=== PATIENT | male | born 1960 | race Caucasian/White ===

== ENCOUNTER 2017-02-04 22:46 | Emergency (ER) | payer OTHER, MEDICAID ==
[2017-02-04 22:57] VITALS: BP 103/63; BMI 19.3
--- NOTE | 2017-02-04 23:07 | DR.GENAD ---
HPI - PCP Primary Care Physician: WILLIAN - HPI Comment HPI Comment: PATIENT IS A TOTAL CARE PATIENT. FREIGHT TRAFFIC CONSULTANT IN ED WITH PATIENT. CAME TO ED WIA EMS. PATIENT IS ALERT BUT IS NON VERBAL DOES NOT COMPREHEND WHEN YOU TALK TO HIM. - Complaint/Symptoms Chief Complaint Doctors Comments: SOB. FREIGHT TRAFFIC CONSULTANT SAID HE IS HAD FEVER AND SOB TODAY. GOT WORSE. Chief Complaint:: EMS RESPONDED TO CALL IN [facility] REFERENCE TO DIFFICULTY BREATHING . UPON ARRIVAL PATIENT WAS BREATHING WITHOUT DISTRESS, CAREGIVER STATES, "HE IS JUST BREATHING FUNNY." - Nurses notes reviewed Nurses Notes Review: Yes - Source History Provided: Family Member, EMS - Mode of Arrival Mode of Arrival: EMS - Timing Onset of Chief Complaint: 02/04/17 Came on: Gradually - Duration Duration: Constant Duration: Days - Severity Severity: Moderate PMH - PMH Past Medical History: Yes Past Medical History: Anxiety, Seizures Past Surgical History: Yes Surgical History: No History, Ortho Surgery - Family History History of Family Medical Conditions: No - Social History Does patient currently use any type of tobacco product: No Have you used tobacco products in the last 12 months: No Type of Tobacco Use: None Does any household member use tobacco: No Alcohol Use: None Do you use any recreational Drugs:: No Lives With: Family Lives Where: Home - infectious screening Have you traveled outside the country in the last 6 months?: No Isolation: Standard ROS - Review of Systems Constitutional: Fever, Weakness, Fatigue. negative: Chills, Loss of Appetite Eyes: negative: Eye Pain, Discharge ENTM: negative: Ear Pain, Nose Discharge, Nose Congestion, Throat Pain (THROAT NOT VISUALIZE.) Respiratoy: Non-Productive Cough, Short of Breath, Wheezing. negative: Hemoptysis Cardiovascular: Palpitations. negative: Syncope Gastrointestinal/Abdominal: negative: Abdominal Pain, Nausea, Vomiting Genitourinary: negative: Hematuria Neurological: Weakness, Other (CEREBRAL PALSY.) Musculoskeletal: Joint Swelling, Muscle Pain Integumentary: Change in Color Hematologic/Lymphatic: No Symptoms Reported Endocrine: negative: Flushing (HISTORY PER FREIGHT TRAFFIC CONSULTANT.) All Other Systems: Reviewed and Negative PE - Vital Signs Vitals: Temperature 100.5 F Pulse Rate 111 Respiratory Rate 28 Blood Pressure [Right Arm] 123/80 Blood Pressure [Left Arm] 95/66 Blood Pressure 103/63 O2 Sat by Pulse Oximetry 92 - General Limitations: No Limitations General Appearance: Alert - Head Head Exam: Normal Inspection - Eyes Eye exam: Normal Appearance - ENT ENT Exam: Normal External Ear Exam External Ear Exam: Normal External Inspection TM/Canal Exam: Bilateral Normal Nose Exam: Normal Nose Exam Mouth Exam: Normal Inspection Throat Exam: Normal Inspection - Neck Neck Exam: Normal Inspection - Chest Chest Inspection: Symmetric Chest Wall Rise - Respiratory Respiratory Exam: Normal Lung Sounds Bilat Respiratory Exam: Bilateral Rhonchi, Upper Rhonchi, Lower Rhonchi - Cardiovascular Cardiovascular Exam: Regular Rate, Normal Rhythm, Normal Heart Sounds - Abdominal Exam Abdominal Exam: Normal Bowel Sounds, Soft. negative: Tenderness - Extremities Extremities Exam: Normal Inspection - Back Back Exam: Normal Inspection - Neurologic Neurological Exam: Alert (PATIENT CANNOT FOLLOW DIRECTION, HE CANNOT TALK.), Other (CEREBRAL PALSY EXTREMITIES CONTRATED. ) - Skin Skin Exam: Erythema MDM - Additional Information Additional Information Obtained From: Oil Deliverer - Differential Diagnosis Differential Diagnosis: PNEUMONIA, CHF, BRONCHITIS, RESPIRATORY FAILURE, UTI Course - Treatment Treatment: SEE ORDERS - Education/Counseling Education/Counseling: Family, Education Educated On: Treatment, Diagnosis, Needs for Follow Up ROR - Labs Reviewed Laboratory Results Reviewed?: Yes Result Diagrams: 02/04/17 23:15 02/04/17 23:15 Laboratory: WBC 11.9 X10^3/uL (3.6-10.0) H 02/04/17 23:15 RBC 4.01 X10^6/uL (4.7-6.0) L 02/04/17 23:15 Hgb 11.8 g/dL (13.5-18.0) L 02/04/17 23:15 Hct 35.7 % (42.0-54.0) L 02/04/17 23:15 MCV 89.1 fL (80.0-100.0) 02/04/17 23:15 MCH 29.5 pg (27.0-34.0) 02/04/17 23:15 MCHC 33.1 g/dL (33.0-35.0) 02/04/17 23:15 RDW 13.5 % (11.6-16.5) 02/04/17 23:15 Plt Count 250 X10^3/uL (150.0-450.0) 02/04/17 23:15 MPV 7.9 fL (7.4-11.0) 02/04/17 23:15 Neut % 81.0 % (42.0-75.0) H 02/04/17 23:15 Lymph % 8.3 % (21.0-51.0) L 02/04/17 23:15 [place] % 10.1 % (0.0-13.0) 02/04/17 23:15 Eos % 0.2 % (0.9-2.9) L 02/04/17 23:15 Baso % 0.4 % (0.2-1.0) 02/04/17 23:15 Neut # 9.7 x10^3/uL (2.2-4.8) H 02/04/17 23:15 Lymph # 1.0 X10^3/uL (1.3-2.9) L 02/04/17 23:15 [place] # 1.2 x10^3/uL (0.3-0.8) H 02/04/17 23:15 Eos # 0.0 x10^3/uL (0.0-0.2) 02/04/17 23:15 Baso # 0.1 X10^3/uL (0.0-0.1) 02/04/17 23:15 Absolute Nucleated RBC 0.0 /100WBC 02/04/17 23:15 Sodium 144 mmol/L (136-145) 02/04/17 23:15 Corrected Sodium 145 mmol/L (136-145) 02/04/17 23:15 Potassium 3.2 mmol/L (3.5-5.1) L 02/04/17 23:15 Chloride 106 mmol/L (98-107) 02/04/17 23:15 Carbon Dioxide 30.5 mmol/L (21-32) 02/04/17 23:15 BUN 10 mg/dL (7-18) 02/04/17 23:15 Creatinine 0.77 mg/dL (0.70-1.30) 02/04/17 23:15 Est GFR (MDRD) Af Amer > 60 (>60) 02/04/17 23:15 Est GFR (MDRD) Non-Af > 60 (>60) 02/04/17 23:15 Glucose 133 mg/dL (65-99) H 02/04/17 23:15 Calcium 8.2 mg/dL (8.5-10.1) L 02/04/17 23:15 Corrected Calcium 9.6 mg/dL (8.5-10.1) 02/04/17 23:15 Total Bilirubin 0.40 mg/dL (0.2-1.0) 02/04/17 23:15 AST 37 Units/L (15-37) 02/04/17 23:15 ALT 47 Units/L (12-78) 02/04/17 23:15 Alkaline Phosphatase 157 Units/L (46-116) H 02/04/17 23:15 B-Natriuretic Peptide 107 pg/mL (0-79) H 02/05/17 00:12 Total Protein 7.3 g/dL (6.4-8.2) 02/04/17 23:15 Albumin 2.2 g/dL (3.4-5.0) L 02/04/17 23:15 Globulin 5.1 g/dL (2.5-4.5) H 02/04/17 23:15 Albumin/Globulin Ratio 0.4 Ratio (1.1-2.1) L 02/04/17 23:15 Specimen Type Clean catch urine 02/04/17 23:11 Urine Color Yellow (YELLOW) 02/04/17 23:11 Urine Appearance Slightly hazy (CLEAR) 02/04/17 23:11 Urine pH 6.0 (5.0 - 8.0) 02/04/17 23:11 Ur Specific [place] 1.020 (1.000-1.030) 02/04/17 23:11 Urine Protein 2+ (NEGATIVE) 02/04/17 23:11 Urine Glucose (UA) Negative (NEGATIVE) 02/04/17 23:11 Urine Ketones Negative (NEGATIVE) 02/04/17 23:11 Urine Occult Blood 3+ (NEGATIVE) 02/04/17 23:11 Urine Nitrite Negative (NEGATIVE) 02/04/17 23:11 Urine Bilirubin Negative (NEGATIVE) 02/04/17 23:11 Urine Urobilinogen Normal (NORMAL) 02/04/17 23:11 Ur Leukocyte Esterase 1+ (NEGATIVE) 02/04/17 23:11 Urine RBC 2-6 /HPF (NEGATIVE) 02/04/17 23:11 Urine WBC 0-3 /HPF (NEGATIVE) 02/04/17 23:11 Ur Squamous Epith Cells Few /HPF (NEGATIVE) 02/04/17 23:11 Urine Bacteria Negative /HPF (NEGATIVE) 02/04/17 23:11 Ur Culture Indicated? No/not indicated 02/04/17 23:11 - XRAY XRAY Interpreted by: Radiologist XRAY Findings: REPORT NOTED AND DISCUSS WITH PATIENTS FREIGHT TRAFFIC CONSULTANT. - EKG Rhythm: NSR (EKG NOTED) - Diagnosis Discharge Problem: Respiratory distress, Bronchitis - Discharge Plan Condition: Stable Prescriptions: Amoxicillin & Pot Clavulanate [AUGMENTIN TAB 875 mg/125 mg *] 1 tab PO BID #20 tab - Follow ups/Referrals Follow ups/Referrals: Severo Leal [Primary Care Provider] - 3 days - Instructions Instructions: Acute Bronchitis, [id number], Shortness of Breath, [id number] Additional Instructions: RETURN TO ED IF WORSE.
[2017-02-04 23:27] LABS: BASOPHILS # (AUTO) 0.1 X10^3/uL (0.0-0.1); BASOPHILS % (AUTO) 0.4 % (0.2-1.0); EOSINOPHILS % (AUTO) 0.2 % (0.9-2.9); HEMATOCRIT 35.7 % (42.0-54.0); HEMOGLOBIN 11.8 g/dL (13.5-18.0); LYMPHOCYTES % (AUTO) 8.3 % (21.0-51.0); MEAN CORPUSCULAR HEMOGLOBIN 29.5 pg (27.0-34.0); MEAN CORPUSCULAR HGB CONC 33.1 g/dL (33.0-35.0); MEAN CORPUSCULAR VOLUME 89.1 fL (80.0-100.0); MEAN PLATELET VOLUME 7.9 fL (7.4-11.0); MONOCYTES # (AUTO) 1.2 x10^3/uL (0.3-0.8); MONOCYTES % (AUTO) 10.1 % (0.0-13.0); NEUTROPHILS # (AUTO) 9.7 x10^3/uL (2.2-4.8); PLATELET COUNT 250 X10^3/uL (150.0-450.0); RED BLOOD COUNT 4.01 X10^6/uL (4.7-6.0); RED CELL DISTRIBUTION WIDTH 13.5 % (11.6-16.5); WHITE BLOOD COUNT 11.9 X10^3/uL (3.6-10.0)
--- NOTE | 2017-02-04 23:28 | RAD ---
EXAM: Chest X-ray INDICATION: Shortness of breath COMPARISION: Prior exam from January 05, 2015 TECHNIQUE: Single view FINDINGS: The lungs are clear and the lung volumes are within normal limits. No pleural effusion or pneumothor ax. The cardiac silhouette is moderately enlarged and there central vascular congestion. The region al skeleton is intact. IMPRESSION: There is moderate cardiomegaly and central vascular congestion. Findings are consistent with changes associated congestive heart failure. Reported By:
[2017-02-04 23:30] LABS: BILIRUBIN,URINE NEGATIVE (NEGATIVE); BLOOD/HEMOGLOBIN,URINE 3+ (NEGATIVE); GLUCOSE, URINE NEGATIVE (NEGATIVE); KETONES,URINE NEGATIVE (NEGATIVE); LEUKOCYTE ESTERASE ,URINE 1+ (NEGATIVE); NITRITES,URINE NEGATIVE (NEGATIVE); PROTEIN,URINE 2+ (NEGATIVE); UROBILINOGEN,URINE NORMAL (NORMAL)
[2017-02-04 23:38] LABS: ALANINE AMINOTRANSFERASE 47 Units/L (12-78); ALBUMIN 2.2 g/dL (3.4-5.0); ALKALINE PHOSPHATASE 157 Units/L (46-116); ASPARTATE AMINO TRANSFERASE 37 Units/L (15-37); BLOOD UREA NITROGEN 10 mg/dL (7-18); CALCIUM 8.2 mg/dL (8.5-10.1); CARBON DIOXIDE 30.5 mmol/L (21-32); CHLORIDE 106 mmol/L (98-107); COR CA(FOR HYPOALB) 9.6 mg/dL (8.5-10.1); COR NA(FOR HYPERGLY) 145 mmol/L (136-145); CREATININE 0.77 mg/dL (0.70-1.30); GLUCOSE 133 mg/dL (65-99); SODIUM 144 mmol/L (136-145); TOTAL PROTEIN 7.3 g/dL (6.4-8.2); eGFR BLACK RACES > 60 (>60); eGFR NON BLACK RACES > 60 (>60)
[2017-02-04 23:46] LABS: APPEARANCE,URINE SLIGHTLY HAZY (CLEAR); BACTERIA,URINE NEGATIVE /HPF (NEGATIVE); COLOR,URINE YELLOW (YELLOW); SQUAMOUS EPITHELIAL CELL,UR FEW /HPF (NEGATIVE)
[2017-02-05] MEDS ORDERED: ROCEPHIN VIAL 1 GM ONE (01:49)
[2017-02-05] MEDS ORDERED: ROCEPHIN VIAL 1 GM IM ONE (01:49)
== END 2017-02-05 03:09 | disposition home or self-care (01) ==
LOC: ER 22:50
DX: J40 Bronchitis, not specified as acute or chronic (principal); R06.00 Dyspnea, unspecified; I51.7 Cardiomegaly
CPT/HCPCS: 36415; 51701; 71010; 80053; 81001; 83880; 85025; 87040; 87077; 87186; 99283; J0696

== ENCOUNTER 2017-02-06 10:17 | Inpatient (IN) | payer OTHER, MEDICAID ==
[2017-02-06 12:18] LABS: BASOPHILS % (AUTO) 0.2 % (0.2-1.0); EOSINOPHILS # (AUTO) 0.1 x10^3/uL (0.0-0.2); EOSINOPHILS % (AUTO) 1.2 % (0.9-2.9); HEMATOCRIT 38.5 % (42.0-54.0); HEMOGLOBIN 12.8 g/dL (13.5-18.0); LYMPHOCYTES # (AUTO) 1.2 X10^3/uL (1.3-2.9); LYMPHOCYTES % (AUTO) 9.8 % (21.0-51.0); MEAN CORPUSCULAR HEMOGLOBIN 29.5 pg (27.0-34.0); MEAN CORPUSCULAR HGB CONC 33.3 g/dL (33.0-35.0); MEAN CORPUSCULAR VOLUME 88.6 fL (80.0-100.0); MONOCYTES # (AUTO) 1.3 x10^3/uL (0.3-0.8); MONOCYTES % (AUTO) 10.7 % (0.0-13.0); NEUTROPHILS # (AUTO) 9.4 x10^3/uL (2.2-4.8); NEUTROPHILS % (AUTO) 78.1 % (42.0-75.0); PLATELET COUNT 325 X10^3/uL (150.0-450.0); RED BLOOD COUNT 4.35 X10^6/uL (4.7-6.0); RED CELL DISTRIBUTION WIDTH 13.6 % (11.6-16.5); WHITE BLOOD COUNT 12.1 X10^3/uL (3.6-10.0)
--- NOTE | 2017-02-06 13:11 | RAD ---
HISTORY: Bacteremia Study: Chest one view Comparison: February 04, 2017 Findings: The heart remains enlarged. No congestive heart failure is noted. No acute alveolar infiltrates are identified. The right lung and left upper lung yeboah are clear. Hazy opacity in the left lung base could represent atelectasis, effusion, or infiltrate. Follow up of this area is recommended. Follow up with upright PA and lateral chest in the department would be of greater diagnostic value than por table radiography. IMPRESSION: Cardiomegaly without congestive heart failure Haziness in the left lower billie thorax which could represent fluid the, developing infiltrate or dev eloping atelectasis. See recommendation as above Reported By:
[2017-02-06 13:33] LABS: ALANINE AMINOTRANSFERASE 55 Units/L (12-78); ALBUMIN 2.3 g/dL (3.4-5.0); ALKALINE PHOSPHATASE 168 Units/L (46-116); ASPARTATE AMINO TRANSFERASE 52 Units/L (15-37); BLOOD UREA NITROGEN 7 mg/dL (7-18); CALCIUM 8.6 mg/dL (8.5-10.1); CARBON DIOXIDE 31.3 mmol/L (21-32); CHLORIDE 103 mmol/L (98-107); CREATININE 0.77 mg/dL (0.70-1.30); GLUCOSE 94 mg/dL (65-99); SODIUM 142 mmol/L (136-145); TOTAL PROTEIN 7.9 g/dL (6.4-8.2); eGFR BLACK RACES > 60 (>60); eGFR NON BLACK RACES > 60 (>60)
[2017-02-06] MEDS ORDERED: NS 250 ML IV 250 ML IV ONE ×2 (13:44→20:22)
[2017-02-06] MEDS: VANCOMYCIN HCL 1 GM VIAL IV SCH ×2 (14:23→20:53)
[2017-02-06] MEDS: NS 1000 ML 1,000 ML IV SCH (14:23)
[2017-02-06] MEDS ORDERED: VISTARIL PO ONE (14:45)
[2017-02-06] MEDS ORDERED: KLONOPIN TAB 0.5 MG PO PRN (14:46)
[2017-02-06 17:30] VITALS: BMI 19.1
[2017-02-06] MEDS: TYLENOL 325 MG TAB PO PRN ×2 (17:42→21:48)
[2017-02-06] MEDS: ELAVIL PO SCH (20:51)
[2017-02-06] MEDS: ZyrTEC TAB 10 MG PO SCH (20:51)
[2017-02-06] MEDS: SENOKOT PO SCH (20:52)
[2017-02-06] MEDS: COGENTIN TAB 1 MG PO SCH (20:52)
[2017-02-06] MEDS: KEPPRA TAB 500 MG PO SCH (20:52)
[2017-02-06] MEDS: PERIACTIN TAB 4 MG PO SCH (21:02)
[2017-02-07] MEDS: NS 1000 ML 1,000 ML IV SCH ×2 (01:56→12:06)
[2017-02-07] MEDS: PERIACTIN TAB 4 MG PO SCH ×3 (05:25→21:01)
[2017-02-07 06:33] LABS: BASOPHILS # (AUTO) 0.1 X10^3/uL (0.0-0.1); BASOPHILS % (AUTO) 0.6 % (0.2-1.0); EOSINOPHILS # (AUTO) 0.2 x10^3/uL (0.0-0.2); EOSINOPHILS % (AUTO) 2.4 % (0.9-2.9); HEMATOCRIT 36.8 % (42.0-54.0); HEMOGLOBIN 12.3 g/dL (13.5-18.0); LYMPHOCYTES # (AUTO) 1.1 X10^3/uL (1.3-2.9); LYMPHOCYTES % (AUTO) 12.3 % (21.0-51.0); MEAN CORPUSCULAR HEMOGLOBIN 29.4 pg (27.0-34.0); MEAN CORPUSCULAR HGB CONC 33.5 g/dL (33.0-35.0); MEAN CORPUSCULAR VOLUME 87.7 fL (80.0-100.0); MEAN PLATELET VOLUME 7.9 fL (7.4-11.0); MONOCYTES % (AUTO) 10.8 % (0.0-13.0); NEUTROPHILS # (AUTO) 6.6 x10^3/uL (2.2-4.8); NEUTROPHILS % (AUTO) 73.9 % (42.0-75.0); PLATELET COUNT 266 X10^3/uL (150.0-450.0); RED BLOOD COUNT 4.19 X10^6/uL (4.7-6.0); RED CELL DISTRIBUTION WIDTH 13.7 % (11.6-16.5); WHITE BLOOD COUNT 8.9 X10^3/uL (3.6-10.0)
[2017-02-07 06:45] LABS: ALANINE AMINOTRANSFERASE 58 Units/L (12-78); ALBUMIN 2.1 g/dL (3.4-5.0); ALKALINE PHOSPHATASE 151 Units/L (46-116); ASPARTATE AMINO TRANSFERASE 68 Units/L (15-37); BLOOD UREA NITROGEN 4 mg/dL (7-18); CALCIUM 8.5 mg/dL (8.5-10.1); CARBON DIOXIDE 33.7 mmol/L (21-32); CHLORIDE 108 mmol/L (98-107); CREATININE 0.63 mg/dL (0.70-1.30); GLUCOSE 102 mg/dL (65-99); SODIUM 145 mmol/L (136-145); TOTAL PROTEIN 7.1 g/dL (6.4-8.2); eGFR BLACK RACES > 60 (>60); eGFR NON BLACK RACES > 60 (>60)
[2017-02-07] MEDS ORDERED: K-LYTE EFFERVESCENT PO PRN (07:55)
[2017-02-07] MEDS ORDERED: K-RIDER 10 MEQ/NS 100 ML 10 MEQ/100 ML BAG IV PRN (07:55)
[2017-02-07] MEDS ORDERED: POTASSIUM CHLORIDE LIQ 20 MEQ UDC PO PRN (07:55)
[2017-02-07] MEDS ORDERED: K-DUR TAB 20 MEQ PO PRN (07:55)
[2017-02-07] MEDS ORDERED: NS 250 ML IV 250 ML IV ONE (08:26)
[2017-02-07] MEDS: VANCOMYCIN HCL 1 GM VIAL IV SCH (09:07)
[2017-02-07] MEDS: VITAMIN B-6 PO SCH (09:08)
[2017-02-07] MEDS: KEPPRA TAB 500 MG PO SCH ×2 (09:08→20:53)
[2017-02-07] MEDS: SENOKOT PO SCH ×2 (09:09→20:53)
[2017-02-07] MEDS ORDERED: BUTT CREAM (COMPOUND) TOP PRN (11:32)
[2017-02-07] MEDS: TYLENOL 325 MG TAB PO PRN ×2 (12:03→15:52)
[2017-02-07] MEDS ORDERED: PATIENT'S HOME MEDICATION (Misc Home Med 1 TAB) PO SCH (12:15)
[2017-02-07] MEDS ORDERED: PYRIDOXINE HCL 50 MG PO SCH (12:15)
[2017-02-07] MEDS ORDERED: [UNRECOGNIZED DRUG - OTHER] PO SCH (12:15)
[2017-02-07] MEDS ORDERED: KEPPRA TAB 500 MG PO SCH (13:00)
[2017-02-07] MEDS: COGENTIN TAB 1 MG PO SCH (20:53)
[2017-02-07] MEDS: ZyrTEC TAB 10 MG PO SCH (20:53)
[2017-02-07] MEDS: KLONOPIN TAB 1 MG PO SCH (20:53)
[2017-02-07] MEDS: ELAVIL PO SCH (20:54)
[2017-02-07] MEDS ORDERED: SENOKOT PO SCH (21:00)
[2017-02-07] MEDS ORDERED: COGENTIN TAB 1 MG PO SCH (21:00)
[2017-02-07] MEDS ORDERED: ELAVIL PO SCH (21:00)
[2017-02-07] MEDS ORDERED: [UNRECOGNIZED DRUG - REMARK] PO SCH (21:00)
[2017-02-07] MEDS ORDERED: PATIENT'S HOME MEDICATION (Amitriptyline Hcl [Amitriptyline Hcl] 1 TAB) PO SCH (21:00)
[2017-02-07] MEDS ORDERED: ZyrTEC TAB 10 MG PO SCH (21:00)
[2017-02-07 21:44] LABS: CREATININE 0.63 mg/dL (0.70-1.30); VANCOMYCIN,TROUGH 8.4 ug/mL (15-20)
[2017-02-07] MEDS: VANCOMYCIN 1 GM PREMIX (ADDVANTAGE) 250 ML IV SCH (21:51)
[2017-02-08] MEDS: PERIACTIN TAB 4 MG PO SCH ×4 (05:38→21:24)
[2017-02-08 06:50] LABS: BASOPHILS # (AUTO) 0.1 X10^3/uL (0.0-0.1); BASOPHILS % (AUTO) 0.6 % (0.2-1.0); EOSINOPHILS # (AUTO) 0.3 x10^3/uL (0.0-0.2); EOSINOPHILS % (AUTO) 3.2 % (0.9-2.9); HEMATOCRIT 34.3 % (42.0-54.0); HEMOGLOBIN 11.4 g/dL (13.5-18.0); LYMPHOCYTES # (AUTO) 1.9 X10^3/uL (1.3-2.9); LYMPHOCYTES % (AUTO) 21.5 % (21.0-51.0); MEAN CORPUSCULAR HEMOGLOBIN 29.1 pg (27.0-34.0); MEAN CORPUSCULAR HGB CONC 33.2 g/dL (33.0-35.0); MEAN CORPUSCULAR VOLUME 87.7 fL (80.0-100.0); MEAN PLATELET VOLUME 7.8 fL (7.4-11.0); MONOCYTES # (AUTO) 0.9 x10^3/uL (0.3-0.8); MONOCYTES % (AUTO) 9.8 % (0.0-13.0); NEUTROPHILS # (AUTO) 5.7 x10^3/uL (2.2-4.8); NEUTROPHILS % (AUTO) 64.9 % (42.0-75.0); PLATELET COUNT 270 X10^3/uL (150.0-450.0); RED BLOOD COUNT 3.91 X10^6/uL (4.7-6.0); RED CELL DISTRIBUTION WIDTH 13.7 % (11.6-16.5); WHITE BLOOD COUNT 8.8 X10^3/uL (3.6-10.0)
[2017-02-08 07:04] LABS: ALANINE AMINOTRANSFERASE 52 Units/L (12-78); ALBUMIN 1.9 g/dL (3.4-5.0); ALKALINE PHOSPHATASE 131 Units/L (46-116); ASPARTATE AMINO TRANSFERASE 51 Units/L (15-37); BLOOD UREA NITROGEN 5 mg/dL (7-18); CALCIUM 8.3 mg/dL (8.5-10.1); CARBON DIOXIDE 27.2 mmol/L (21-32); CHLORIDE 108 mmol/L (98-107); CREATININE 0.55 mg/dL (0.70-1.30); GLUCOSE 86 mg/dL (65-99); SODIUM 141 mmol/L (136-145); TOTAL PROTEIN 6.4 g/dL (6.4-8.2); eGFR BLACK RACES > 60 (>60); eGFR NON BLACK RACES > 60 (>60)
[2017-02-08] MEDS: NS 1000 ML 1,000 ML IV SCH (08:38)
[2017-02-08] MEDS: VANCOMYCIN 1 GM PREMIX (ADDVANTAGE) 250 ML IV SCH ×2 (08:38→21:23)
[2017-02-08] MEDS: VITAMIN B-6 PO SCH (08:39)
[2017-02-08] MEDS: FIBERCON PO SCH (08:39)
[2017-02-08] MEDS: SENOKOT PO SCH ×2 (08:39→21:24)
[2017-02-08] MEDS: KEPPRA TAB 500 MG PO SCH ×2 (08:39→21:24)
[2017-02-08] MEDS ORDERED: VITAMIN B-6 PO SCH (09:00)
[2017-02-08] MEDS: TYLENOL 325 MG TAB PO PRN (14:03)
[2017-02-08] MEDS ORDERED: MILK OF MAGNESIA PO PRN (19:47)
[2017-02-08] MEDS: ZyrTEC TAB 10 MG PO SCH (21:24)
[2017-02-08] MEDS: COGENTIN TAB 1 MG PO SCH (21:24)
[2017-02-08] MEDS: ELAVIL PO SCH (21:24)
[2017-02-08] MEDS: KLONOPIN TAB 1 MG PO SCH (21:24)
[2017-02-09 05:27] LABS: BASOPHILS # (AUTO) 0.1 X10^3/uL (0.0-0.1); BASOPHILS % (AUTO) 0.6 % (0.2-1.0); EOSINOPHILS # (AUTO) 0.3 x10^3/uL (0.0-0.2); EOSINOPHILS % (AUTO) 3.6 % (0.9-2.9); HEMATOCRIT 33.6 % (42.0-54.0); HEMOGLOBIN 11.3 g/dL (13.5-18.0); LYMPHOCYTES # (AUTO) 2.3 X10^3/uL (1.3-2.9); LYMPHOCYTES % (AUTO) 24.6 % (21.0-51.0); MEAN CORPUSCULAR HEMOGLOBIN 29.2 pg (27.0-34.0); MEAN CORPUSCULAR HGB CONC 33.5 g/dL (33.0-35.0); MEAN CORPUSCULAR VOLUME 87.3 fL (80.0-100.0); MEAN PLATELET VOLUME 8.2 fL (7.4-11.0); MONOCYTES # (AUTO) 1.1 x10^3/uL (0.3-0.8); NEUTROPHILS # (AUTO) 5.4 x10^3/uL (2.2-4.8); NEUTROPHILS % (AUTO) 59.2 % (42.0-75.0); PLATELET COUNT 242 X10^3/uL (150.0-450.0); RED BLOOD COUNT 3.85 X10^6/uL (4.7-6.0); RED CELL DISTRIBUTION WIDTH 13.6 % (11.6-16.5); WHITE BLOOD COUNT 9.2 X10^3/uL (3.6-10.0)
[2017-02-09 05:28] LABS: ALANINE AMINOTRANSFERASE 53 Units/L (12-78); ALBUMIN 1.7 g/dL (3.4-5.0); ALKALINE PHOSPHATASE 127 Units/L (46-116); ASPARTATE AMINO TRANSFERASE 51 Units/L (15-37); BLOOD UREA NITROGEN 6 mg/dL (7-18); CALCIUM 8.3 mg/dL (8.5-10.1); CARBON DIOXIDE 28.8 mmol/L (21-32); CHLORIDE 109 mmol/L (98-107); COR CA(FOR HYPOALB) 10.1 mg/dL (8.5-10.1); CREATININE 0.58 mg/dL (0.70-1.30); GLUCOSE 78 mg/dL (65-99); SODIUM 143 mmol/L (136-145); TOTAL PROTEIN 6.2 g/dL (6.4-8.2); eGFR BLACK RACES > 60 (>60); eGFR NON BLACK RACES > 60 (>60)
[2017-02-09] MEDS: NS 1000 ML 1,000 ML IV SCH ×2 (06:01→21:46)
--- NOTE | 2017-02-09 06:07 | RAD ---
HISTORY: 56-year-old male with shortness of breath and CHF. Study: Single frontal view of the chest. Comparison: Chest radiographs February 06, 2017. Findings: The trachea is midline. The cardiac silhouette is stably enlarged. Unchanged appearance of left lo wer billie thorax hazy opacity with prominent perihilar lung markings. No pneumothorax. Low lung volum es. The bony thorax is unremarkable. IMPRESSION: 1. No significant interval change with findings within the left lower billie thorax, correlate clinic ally for pneumonia superimposed upon effusion. Reported By:
[2017-02-09] MEDS: PERIACTIN TAB 4 MG PO SCH ×3 (07:00→21:17)
[2017-02-09] MEDS: VITAMIN B-6 PO SCH (09:24)
[2017-02-09] MEDS: FIBERCON PO SCH (09:24)
[2017-02-09] MEDS: SENOKOT PO SCH ×2 (09:24→21:17)
[2017-02-09] MEDS: KEPPRA TAB 500 MG PO SCH ×2 (09:25→21:17)
[2017-02-09] MEDS: VANCOMYCIN HCL 500 MG VIAL 500 MG, VANCOMYCIN HCL 1 GM VIAL 1 GM in NS 250 ML IV 250 ML IV SCH ×2 (10:27→21:16)
[2017-02-09 20:21] LABS: CREATININE 0.66 mg/dL (0.70-1.30); VANCOMYCIN,TROUGH 16.1 ug/mL (15-20)
[2017-02-09] MEDS: KLONOPIN TAB 1 MG PO SCH (21:18)
[2017-02-09] MEDS: ZyrTEC TAB 10 MG PO SCH (21:18)
[2017-02-09] MEDS: ELAVIL PO SCH (21:18)
[2017-02-09] MEDS: COGENTIN TAB 1 MG PO SCH (21:18)
[2017-02-10 05:27] LABS: ALANINE AMINOTRANSFERASE 65 Units/L (12-78); ALBUMIN 1.8 g/dL (3.4-5.0); ALKALINE PHOSPHATASE 140 Units/L (46-116); ASPARTATE AMINO TRANSFERASE 53 Units/L (15-37); BLOOD UREA NITROGEN 7 mg/dL (7-18); CALCIUM 8.4 mg/dL (8.5-10.1); CARBON DIOXIDE 27.1 mmol/L (21-32); CHLORIDE 109 mmol/L (98-107); COR CA(FOR HYPOALB) 10.2 mg/dL (8.5-10.1); CREATININE 0.58 mg/dL (0.70-1.30); GLUCOSE 82 mg/dL (65-99); SODIUM 145 mmol/L (136-145); TOTAL PROTEIN 6.5 g/dL (6.4-8.2); eGFR BLACK RACES > 60 (>60); eGFR NON BLACK RACES > 60 (>60)
[2017-02-10] MEDS: PERIACTIN TAB 4 MG PO SCH (05:46)
[2017-02-10 05:53] LABS: BASOPHILS # (AUTO) 0.1 X10^3/uL (0.0-0.1); BASOPHILS % (AUTO) 0.8 % (0.2-1.0); EOSINOPHILS # (AUTO) 0.3 x10^3/uL (0.0-0.2); EOSINOPHILS % (AUTO) 3.8 % (0.9-2.9); HEMOGLOBIN 11.3 g/dL (13.5-18.0); LYMPHOCYTES # (AUTO) 2.6 X10^3/uL (1.3-2.9); LYMPHOCYTES % (AUTO) 31.8 % (21.0-51.0); MEAN CORPUSCULAR HGB CONC 33.2 g/dL (33.0-35.0); MEAN CORPUSCULAR VOLUME 87.4 fL (80.0-100.0); MONOCYTES # (AUTO) 0.8 x10^3/uL (0.3-0.8); MONOCYTES % (AUTO) 10.3 % (0.0-13.0); NEUTROPHILS # (AUTO) 4.4 x10^3/uL (2.2-4.8); NEUTROPHILS % (AUTO) 53.3 % (42.0-75.0); PLATELET COUNT 289 X10^3/uL (150.0-450.0); RED BLOOD COUNT 3.89 X10^6/uL (4.7-6.0); RED CELL DISTRIBUTION WIDTH 13.6 % (11.6-16.5); WHITE BLOOD COUNT 8.2 X10^3/uL (3.6-10.0)
[2017-02-10] MEDS: NS 1000 ML 1,000 ML IV SCH (07:00)
[2017-02-10] MEDS: KEPPRA TAB 500 MG PO SCH (09:23)
[2017-02-10] MEDS: FIBERCON PO SCH (09:23)
[2017-02-10] MEDS: SENOKOT PO SCH (09:23)
[2017-02-10] MEDS: VITAMIN B-6 PO SCH (09:24)
[2017-02-10] MEDS: VANCOMYCIN HCL 500 MG VIAL 500 MG, VANCOMYCIN HCL 1 GM VIAL 1 GM in NS 250 ML IV 250 ML IV SCH (09:24)
[2017-02-10 09:55] VITALS: BP 111/56
--- NOTE | 2017-02-10 13:20 | PCM.PROG ---
Progress Note - Progress Note for Day of Date: 02/09/17 - Subjective Subjective: Patient is a 56yo white male who presented to the hospital as a direct admit on 02/06. Patient was previously seen in the ER and blood cultures were drawn and grew out MRSA and has been admitted for futher treatment. Patient continue to do well patient did spike a fever yester day at 1200 of 101 and then again at 2000 100.3. We are going to continue patient treatment with IV Vancomycin and his home medications. Labs are normal with the exception of RBC 3.85, Hgb 11.3, Hct 33.6, Eos% 3.6, Neut# 5.4, [place]# 1.1, Eos# 0.3, Chloride 109, BUN 6, Creatinine 0.58, Calcium 8.3, AST 51, Alkaline Phosphate 127, Protein 6.2, Albumin 1.9 - Past Medical Family Social History Past Med/Fam/Surg Hx: No changes since H&P Allergies: Allergies Haloperidol [From Haldol] Allergy (Unknown, Verified 01/03/15 22:09) - Review of Systems ROS: No change since H&P - Vital Signs and I&O's Vital Signs: Temperature 99.8 F Pulse Rate [Right Brachial] 104 Pulse Rate [Left Brachial] 107 Respiratory Rate 20 Blood Pressure [Right Arm] 96/50 Blood Pressure [Left Arm] 111/56 Blood Pressure 103/63 O2 Sat by Pulse Oximetry 91 Intake and Output: Intake & Output 02/08/17 02/09/17 02/10/17 02/11/17 11:59 11:59 11:59 11:59 Intake Total 964 1351 1952 Balance 964 1351 1952 - Physical Exam Oriented: Other (unable to test patient is mentally handicapped) Eyes: Normal Ear: Normal Nose: Normal Throat: Normal Respiratory: Normal Cardiovascular: Normal : Normal Auscultation: Bowel Sounds: Normal Palpation: Normal Tenderness: Normal Skin: Other (pallor) Musculoskeletal: Instability (patient is unable to walk) Psychiatric: Other Mood Description: Calm Affect: Flat Speech Pattern: Unclear - Laboratory and Diagnostics Result Diagrams: 02/10/17 03:40 02/10/17 03:40 Labs: 02/06/17 11:52 Blood Blood Culture - Final Methicillin Resis Staph Aureus 02/06/17 11:45 Blood Blood Culture - Final Methicillin Resis Staph Aureus Laboratory Labs are normal with the exception of RBC 3.85, Hgb 11.3, Hct 33.6, Eos% 3.6, Neut# 5.4, [place]# 1.1, Eos# 0.3, Chloride 109, BUN 6, Creatinine 0.58, Calcium 8.3, AST 51, Alkaline Phosphate 127, Protein 6.2, Albumin 1.9 - Plan (1) MRSA (methicillin resistant Staphylococcus aureus) infection Status: Acute Plan: Continue Vancomycin, treat temp with tylenol
--- NOTE | 2017-02-10 13:37 | DR.CARTERD ---
- Discharge Summary for: Discharge Summary for Date of:: 02/10/17 - Admission Date Date of Admission: 02/06/17 - Admission Diagnoses Admission Diagnosis: MRSA positive blood cultures - Discharge Date Discharge Date: 02/10/17 - Discharge Diagnoses Discharge Diagnosis: MRSA positive blood cultures - Hospital Course Hospital Course: Patient is a 56yo white male who presented to the hospital as a direct admit on 02/06. Patient was previously seen in the ER and blood cultures were drawn and grew out MRSA and has been admitted for futher treatment. Patient continue to do well patient spiked a temperature of 100.3 yesterday at 1999 and this am of 99.8. We are going to change patient to a swing bed status to continue him on IV Vancomycin for treatment of MRSA positive blood cultures. Labs are within normal limits with the exception of RBC 3.89, Hgb 11.3, Hct 34.0, Eos% 3.8, Eos # 0.3, Potassium 3.2, Chloride 109, Creatinine 0.58, Calcium 8.4, AST 53, Alkaline Phosphate 140, Albumin 1.8, Globulin 4.7. we will continue potassium replacement protocol for hypokalemia Labs: Labs are within normal limits with the exception of RBC 3.89, Hgb 11.3, Hct 34.0 , Eos% 3.8, Eos# 0.3, Potassium 3.2, Chloride 109, Creatinine 0.58, Calcium 8.4 , AST 53, Alkaline Phosphate 140, Albumin 1.8, Globulin 4.7 - Discharge Medications Discharge Medications: Amitriptyline HCl 1 tab PO HS 02/06/17 [History] Amoxicillin & Pot Clavulanate [Amoxicillin/Clavulanate P 875-125 mg] 1 tab PO BID 02/06/17 [History] Benztropine Mesylate [COGENTIN 1 MG TAB *] 1 tab PO HS 02/06/17 [History] Cetirizine HCl [All Day Allergy] 1 tab PO HS 02/06/17 [History] Clonazepam 1 tab PO HS 02/06/17 [History] Cyproheptadine HCl [PERIACTIN 4 MG TAB *] 1 tab PO TID 02/06/17 [History] Levetiracetam [KEPPRA 500 MG *] 1 tab PO BID 02/06/17 [History] Misc Home Med [Patient's Home Medication (Non-PO)] 1 tab PO DAILY 02/06/17 [ History] Misc Home Med [Patient's Home Medication (Non-PO)] 2 tab PO BID 02/06/17 [ History] Pyridoxine HCl [Vitamin B-6] 50 mg PO DAILY 02/06/17 [History] Quetiapine Fumarate [SEROQUEL 200 MG *] 2 tab PO HS 02/06/17 [History] IV Vancomycin 1gm IV q12hr - Discharge Disposition Discharge Disposition: Swingbed
[2017-02-10] MEDS ORDERED: ELAVIL PO SCH (21:00)
== END 2017-02-10 10:00 | disposition swing bed (61) | DRG 869 ==
LOC: MED/SURG 10:17
PROVIDERS: ADMIT Internal Medicine; ATTEND Internal Medicine
DX: A49.02 Methicillin resistant Staphylococcus aureus infection, unspecified site (principal); F78 Other intellectual disabilities; Z78.1 Physical restraint status
CPT/HCPCS: 36415; 71010; 80053; 80202; 82565; 84132; 85025; 87040; 87077; 87186; 94760; 99221; 99231; A4222; Q0177; J3370

== ENCOUNTER 2017-02-10 10:00 | Inpatient (IN) | payer OTHER, MEDICAID ==
[2017-02-10] MEDS ORDERED: TYLENOL 325 MG TAB PO PRN (10:19)
[2017-02-10] MEDS ORDERED: K-LYTE EFFERVESCENT PO PRN (10:21)
[2017-02-10] MEDS ORDERED: K-RIDER 10 MEQ/NS 100 ML 10 MEQ/100 ML BAG IV PRN (10:21)
[2017-02-10] MEDS ORDERED: POTASSIUM CHLORIDE LIQ 20 MEQ UDC PO PRN (10:22)
[2017-02-10] MEDS ORDERED: MILK OF MAGNESIA PO PRN (10:22)
[2017-02-10] MEDS ORDERED: BUTT CREAM (COMPOUND) TOP PRN (10:22)
[2017-02-10] MEDS ORDERED: K-DUR TAB 20 MEQ PO PRN (10:22)
[2017-02-10] MEDS: PERIACTIN TAB 4 MG PO SCH ×3 (12:44→21:50)
[2017-02-10 12:49] VITALS: BMI 19.1
--- NOTE | 2017-02-10 13:52 | DR.UPDATE ---
H&P Update History and Physical Update: History and Physical reviewed and patient examined. Patient is a 56yo white male who presented to the hospital as a direct admit on 02/06. Patient was previously seen in the ER and blood cultures were drawn and grew out MRSA and has been admitted for futher treatment. Patient continue to do well patient spiked a temperature of 100.3 yesterday at 2000 and this am of 99.8. We are going to change patient to a swing bed status to continue him on Vancomycin 1gm IV q12hr for treatment of MRSA positive blood cultures. Labs are within normal limits with the exception of RBC 3.89, Hgb 11.3, Hct 34.0, Eos% 3.8, Eos# 0.3, Potassium 3.2, Chloride 109, Creatinine 0.58, Calcium 8.4, AST 53 , Alkaline Phosphate 140, Albumin 1.8, Globulin 4.7. we will continue potassium replacement protocol for hypokalemia Changes noted: NO Yes with the following:
[2017-02-10] MEDS ORDERED: VANCOMYCIN 1 GM PREMIX (ADDVANTAGE) 250 ML IV SCH (21:00)
[2017-02-10] MEDS: VANCOMYCIN HCL 500 MG VIAL 500 MG, VANCOMYCIN HCL 1 GM VIAL 1 GM in NS 250 ML IV 250 ML IV SCH (21:49)
[2017-02-10] MEDS: KLONOPIN TAB 1 MG PO SCH (21:50)
[2017-02-10] MEDS: COGENTIN TAB 1 MG PO SCH (21:50)
[2017-02-10] MEDS: ZyrTEC TAB 10 MG PO SCH (21:50)
[2017-02-10] MEDS: SENOKOT PO SCH (21:51)
[2017-02-10] MEDS: KEPPRA TAB 500 MG PO SCH (21:51)
[2017-02-10] MEDS: ELAVIL PO SCH (21:51)
[2017-02-11] MEDS: PERIACTIN TAB 4 MG PO SCH ×3 (05:34→21:23)
[2017-02-11] MEDS: FIBERCON PO SCH (08:37)
[2017-02-11] MEDS: KEPPRA TAB 500 MG PO SCH ×2 (08:37→21:23)
[2017-02-11] MEDS: SENOKOT PO SCH ×2 (08:37→21:24)
[2017-02-11] MEDS: VITAMIN B-6 PO SCH (08:38)
[2017-02-11] MEDS: VANCOMYCIN HCL 500 MG VIAL 500 MG, VANCOMYCIN HCL 1 GM VIAL 1 GM in NS 250 ML IV 250 ML IV SCH ×2 (09:44→21:42)
[2017-02-11 21:02] LABS: CREATININE 0.69 mg/dL (0.70-1.30)
[2017-02-11] MEDS: ELAVIL PO SCH (21:23)
[2017-02-11] MEDS: KLONOPIN TAB 1 MG PO SCH (21:23)
[2017-02-11] MEDS: COGENTIN TAB 1 MG PO SCH (21:24)
[2017-02-11] MEDS: ZyrTEC TAB 10 MG PO SCH (21:24)
[2017-02-12 04:44] LABS: BASOPHILS # (AUTO) 0.1 X10^3/uL (0.0-0.1); BASOPHILS % (AUTO) 0.5 % (0.2-1.0); EOSINOPHILS # (AUTO) 0.4 x10^3/uL (0.0-0.2); EOSINOPHILS % (AUTO) 4.1 % (0.9-2.9); HEMATOCRIT 36.9 % (42.0-54.0); HEMOGLOBIN 12.4 g/dL (13.5-18.0); LYMPHOCYTES # (AUTO) 2.4 X10^3/uL (1.3-2.9); LYMPHOCYTES % (AUTO) 25.5 % (21.0-51.0); MEAN CORPUSCULAR HEMOGLOBIN 29.4 pg (27.0-34.0); MEAN CORPUSCULAR HGB CONC 33.5 g/dL (33.0-35.0); MEAN CORPUSCULAR VOLUME 87.7 fL (80.0-100.0); MEAN PLATELET VOLUME 7.9 fL (7.4-11.0); MONOCYTES # (AUTO) 0.9 x10^3/uL (0.3-0.8); MONOCYTES % (AUTO) 9.6 % (0.0-13.0); NEUTROPHILS # (AUTO) 5.8 x10^3/uL (2.2-4.8); NEUTROPHILS % (AUTO) 60.3 % (42.0-75.0); PLATELET COUNT 347 X10^3/uL (150.0-450.0); RED BLOOD COUNT 4.21 X10^6/uL (4.7-6.0); RED CELL DISTRIBUTION WIDTH 13.9 % (11.6-16.5); WHITE BLOOD COUNT 9.6 X10^3/uL (3.6-10.0)
[2017-02-12 04:57] LABS: ALANINE AMINOTRANSFERASE 74 Units/L (12-78); ALBUMIN 2.3 g/dL (3.4-5.0); ALKALINE PHOSPHATASE 164 Units/L (46-116); ASPARTATE AMINO TRANSFERASE 45 Units/L (15-37); BLOOD UREA NITROGEN 7 mg/dL (7-18); CALCIUM 8.8 mg/dL (8.5-10.1); CARBON DIOXIDE 29.8 mmol/L (21-32); CHLORIDE 109 mmol/L (98-107); COR CA(FOR HYPOALB) 10.2 mg/dL (8.5-10.1); CREATININE 0.68 mg/dL (0.70-1.30); GLUCOSE 102 mg/dL (65-99); SODIUM 145 mmol/L (136-145); TOTAL PROTEIN 7.5 g/dL (6.4-8.2); eGFR BLACK RACES > 60 (>60); eGFR NON BLACK RACES > 60 (>60)
[2017-02-12] MEDS: PERIACTIN TAB 4 MG PO SCH ×3 (05:54→21:46)
[2017-02-12] MEDS: FIBERCON PO SCH (09:00)
[2017-02-12] MEDS: VITAMIN B-6 PO SCH (09:01)
[2017-02-12] MEDS: SENOKOT PO SCH ×2 (09:01→21:50)
[2017-02-12] MEDS: KEPPRA TAB 500 MG PO SCH ×2 (09:02→21:38)
[2017-02-12] MEDS: VANCOMYCIN HCL 500 MG VIAL 500 MG, VANCOMYCIN HCL 1 GM VIAL 1 GM in NS 250 ML IV 250 ML IV SCH ×2 (09:11→21:38)
[2017-02-12] MEDS: COGENTIN TAB 1 MG PO SCH (21:46)
[2017-02-12] MEDS: KLONOPIN TAB 1 MG PO SCH (21:46)
[2017-02-12] MEDS: ZyrTEC TAB 10 MG PO SCH (21:46)
[2017-02-12] MEDS: ELAVIL PO SCH (21:46)
[2017-02-13] MEDS: PERIACTIN TAB 4 MG PO SCH ×3 (05:37→21:46)
[2017-02-13 09:01] LABS: CREATININE 0.61 mg/dL (0.70-1.30); VANCOMYCIN,TROUGH 21.9 ug/mL (15-20)
[2017-02-13] MEDS: FIBERCON PO SCH (09:13)
[2017-02-13] MEDS: KEPPRA TAB 500 MG PO SCH ×2 (09:14→21:45)
[2017-02-13] MEDS: SENOKOT PO SCH ×2 (09:14→21:46)
[2017-02-13] MEDS: VITAMIN B-6 PO SCH (09:15)
[2017-02-13] MEDS: VANCOMYCIN HCL 500 MG VIAL 250 MG, VANCOMYCIN HCL 1 GM VIAL 1 GM in NS 250 ML IV 250 ML IV SCH ×2 (10:32→21:46)
[2017-02-13] MEDS: ELAVIL PO SCH (21:45)
[2017-02-13] MEDS: COGENTIN TAB 1 MG PO SCH (21:45)
[2017-02-13] MEDS: KLONOPIN TAB 1 MG PO SCH (21:46)
[2017-02-13] MEDS: ZyrTEC TAB 10 MG PO SCH (21:46)
[2017-02-14] MEDS: PERIACTIN TAB 4 MG PO SCH ×3 (05:39→21:44)
[2017-02-14] MEDS: VITAMIN B-6 PO SCH (10:00)
[2017-02-14] MEDS: SENOKOT PO SCH ×2 (10:00→21:44)
[2017-02-14] MEDS: FIBERCON PO SCH (10:00)
[2017-02-14] MEDS: KEPPRA TAB 500 MG PO SCH ×2 (10:01→21:44)
[2017-02-14] MEDS ORDERED: NS 250 ML IV 250 ML IV ONE (10:08)
[2017-02-14] MEDS ORDERED: VANCOMYCIN HCL 500 MG VIAL ONE (10:08)
[2017-02-14] MEDS ORDERED: VANCOMYCIN HCL 1 GM VIAL ONE (10:08)
[2017-02-14] MEDS: VANCOMYCIN HCL 500 MG VIAL 250 MG, VANCOMYCIN HCL 1 GM VIAL 1 GM in NS 250 ML IV 250 ML IV SCH (10:18)
[2017-02-14 21:00] LABS: CREATININE 0.79 mg/dL (0.70-1.30); VANCOMYCIN,TROUGH 21.4 ug/mL (15-20)
[2017-02-14] MEDS: COGENTIN TAB 1 MG PO SCH (21:44)
[2017-02-14] MEDS: ZyrTEC TAB 10 MG PO SCH (21:44)
[2017-02-14] MEDS: ELAVIL PO SCH (21:45)
[2017-02-14] MEDS: KLONOPIN TAB 1 MG PO SCH (21:45)
[2017-02-15] MEDS: VANCOMYCIN 1 GM PREMIX (ADDVANTAGE) 250 ML IV SCH ×2 (05:20→21:56)
[2017-02-15] MEDS: PERIACTIN TAB 4 MG PO SCH ×3 (05:20→21:56)
[2017-02-15] MEDS: VITAMIN B-6 PO SCH (09:23)
[2017-02-15] MEDS: SENOKOT PO SCH ×2 (09:23→21:56)
[2017-02-15] MEDS: KEPPRA TAB 500 MG PO SCH ×2 (09:23→21:55)
[2017-02-15] MEDS: FIBERCON PO SCH (09:23)
[2017-02-15] MEDS: COGENTIN TAB 1 MG PO SCH (21:54)
[2017-02-15] MEDS: ELAVIL PO SCH (21:54)
[2017-02-15] MEDS: KLONOPIN TAB 1 MG PO SCH (21:55)
[2017-02-15] MEDS: ZyrTEC TAB 10 MG PO SCH (21:56)
[2017-02-16] MEDS: PERIACTIN TAB 4 MG PO SCH ×3 (05:06→21:17)
[2017-02-16 06:21] LABS: ALBUMIN 2.2 g/dL (3.4-5.0); ALKALINE PHOSPHATASE 142 Units/L (46-116); ASPARTATE AMINO TRANSFERASE 31 Units/L (15-37); BLOOD UREA NITROGEN 11 mg/dL (7-18); CALCIUM 8.8 mg/dL (8.5-10.1); CHLORIDE 109 mmol/L (98-107); COR CA(FOR HYPOALB) 10.2 mg/dL (8.5-10.1); GLUCOSE 88 mg/dL (65-99); SODIUM 145 mmol/L (136-145); TOTAL PROTEIN 7.1 g/dL (6.4-8.2); eGFR BLACK RACES > 60 (>60); eGFR NON BLACK RACES > 60 (>60)
[2017-02-16 06:23] LABS: BASOPHILS # (AUTO) 0.1 X10^3/uL (0.0-0.1); BASOPHILS % (AUTO) 0.7 % (0.2-1.0); EOSINOPHILS # (AUTO) 0.5 x10^3/uL (0.0-0.2); EOSINOPHILS % (AUTO) 5.9 % (0.9-2.9); HEMOGLOBIN 12.1 g/dL (13.5-18.0); LYMPHOCYTES # (AUTO) 2.8 X10^3/uL (1.3-2.9); LYMPHOCYTES % (AUTO) 35.4 % (21.0-51.0); MEAN CORPUSCULAR HEMOGLOBIN 29.7 pg (27.0-34.0); MEAN CORPUSCULAR HGB CONC 33.8 g/dL (33.0-35.0); MEAN CORPUSCULAR VOLUME 87.8 fL (80.0-100.0); MEAN PLATELET VOLUME 7.9 fL (7.4-11.0); MONOCYTES # (AUTO) 0.8 x10^3/uL (0.3-0.8); MONOCYTES % (AUTO) 10.3 % (0.0-13.0); NEUTROPHILS # (AUTO) 3.8 x10^3/uL (2.2-4.8); NEUTROPHILS % (AUTO) 47.7 % (42.0-75.0); PLATELET COUNT 346 X10^3/uL (150.0-450.0); RED CELL DISTRIBUTION WIDTH 14.6 % (11.6-16.5); WHITE BLOOD COUNT 7.8 X10^3/uL (3.6-10.0)
[2017-02-16 06:33] LABS: ALANINE AMINOTRANSFERASE 56 Units/L (12-78)
[2017-02-16] MEDS: FIBERCON PO SCH (09:22)
[2017-02-16] MEDS: KEPPRA TAB 500 MG PO SCH ×2 (09:22→21:17)
[2017-02-16] MEDS: VITAMIN B-6 PO SCH (09:23)
[2017-02-16] MEDS: SENOKOT PO SCH ×2 (09:23→21:16)
[2017-02-16] MEDS: VANCOMYCIN 1 GM PREMIX (ADDVANTAGE) 250 ML IV SCH ×2 (09:24→21:17)
--- NOTE | 2017-02-16 16:58 | PCM.PROG ---
Progress Note - Progress Note for Day of Date: 02/12/17 - Subjective Subjective: Patient is a 56 year old white male who is in this hospital as a swingbed for treatment of MRSA positive blood cultures which is being treated with Vancomycin IV. Vital Signs this am are 98.8, 100, 20, 95% on RA, 107/59. Labs are within normal limits with the exception of RBC 4.21, Hgb 12.4, Hct 36.9 , Eos% 4.1, Neut# 5.8, [place]# 0.9, Eos# 0.4, ESR 49, Potassium 3.4, chloride 109 , Creatinine 0.68, Glucose 102, AST 45, Alkaline Phosphate 164, CRP 45.40, Albumin 2.3, Globulin 5.2, Albumin/Globulin Ratio 0.4. We are going to continue patient on his current treatment plan and will repeat labs on 02/16. - Past Medical Family Social History Past Med/Fam/Surg Hx: No changes since H&P Allergies: Allergies Haloperidol [From Haldol] Allergy (Unknown, Verified 01/03/15 22:09) - Review of Systems ROS: No change since H&P - Vital Signs and I&O's Vital Signs: 98.8, 100, 20, 95% on RA, 107/59. Intake and Output: Intake & Output 02/14/17 02/15/17 02/16/17 02/17/17 11:59 11:59 11:59 11:59 Intake Total 1250 1490 1620 400 Balance 1250 1490 1620 400 - Physical Exam Oriented: Unable to test Eyes: Normal Ear: Normal Nose: Normal Throat: Normal Respiratory: Normal Cardiovascular: Normal : Normal Auscultation: Bowel Sounds: Normal Palpation: Normal Tenderness: Normal Skin: Normal Musculoskeletal: Normal Psychiatric: Normal Mood Description: Calm Affect: Normal Speech Pattern: Unclear - Laboratory and Diagnostics Result Diagrams: 02/16/17 04:04 02/16/17 04:04 Labs: Laboratory WBC 7.8 X10^3/uL (3.6-10.0) 02/16/17 04:04 RBC 4.10 X10^6/uL (4.7-6.0) L 02/16/17 04:04 Hgb 12.1 g/dL (13.5-18.0) L 02/16/17 04:04 Hct 36.0 % (42.0-54.0) L 02/16/17 04:04 MCV 87.8 fL (80.0-100.0) 02/16/17 04:04 MCH 29.7 pg (27.0-34.0) 02/16/17 04:04 MCHC 33.8 g/dL (33.0-35.0) 02/16/17 04:04 RDW 14.6 % (11.6-16.5) 02/16/17 04:04 Plt Count 346 X10^3/uL (150.0-450.0) 02/16/17 04:04 MPV 7.9 fL (7.4-11.0) 02/16/17 04:04 Neut % 47.7 % (42.0-75.0) 02/16/17 04:04 Lymph % 35.4 % (21.0-51.0) 02/16/17 04:04 [place] % 10.3 % (0.0-13.0) 02/16/17 04:04 Eos % 5.9 % (0.9-2.9) H 02/16/17 04:04 Baso % 0.7 % (0.2-1.0) 02/16/17 04:04 Neut # 3.8 x10^3/uL (2.2-4.8) 02/16/17 04:04 Lymph # 2.8 X10^3/uL (1.3-2.9) 02/16/17 04:04 [place] # 0.8 x10^3/uL (0.3-0.8) 02/16/17 04:04 Eos # 0.5 x10^3/uL (0.0-0.2) H 02/16/17 04:04 Baso # 0.1 X10^3/uL (0.0-0.1) 02/16/17 04:04 Absolute Nucleated RBC 0.1 /100WBC 02/16/17 04:04 ESR 49 MM/HOUR (0-15) H 02/12/17 03:45 Sodium 145 mmol/L (136-145) 02/16/17 04:04 Corrected Sodium TNP 02/16/17 04:04 Potassium 3.9 mmol/L (3.5-5.1) 02/16/17 04:04 Chloride 109 mmol/L (98-107) H 02/16/17 04:04 Carbon Dioxide 28.0 mmol/L (21-32) 02/16/17 04:04 BUN 11 mg/dL (7-18) 02/16/17 04:04 Creatinine 0.70 mg/dL (0.70-1.30) 02/16/17 04:04 Est GFR (MDRD) Af Amer > 60 (>60) 02/16/17 04:04 Est GFR (MDRD) Non-Af > 60 (>60) 02/16/17 04:04 Glucose 88 mg/dL (65-99) 02/16/17 04:04 Calcium 8.8 mg/dL (8.5-10.1) 02/16/17 04:04 Corrected Calcium 10.2 mg/dL (8.5-10.1) H 02/16/17 04:04 Total Bilirubin 0.40 mg/dL (0.2-1.0) 02/16/17 04:04 AST 31 Units/L (15-37) 02/16/17 04:04 ALT 56 Units/L (12-78) 02/16/17 04:04 Alkaline Phosphatase 142 Units/L (46-116) H 02/16/17 04:04 C-Reactive Protein 45.40 mg/L (0-3.0) H 02/12/17 03:45 Total Protein 7.1 g/dL (6.4-8.2) 02/16/17 04:04 Albumin 2.2 g/dL (3.4-5.0) L 02/16/17 04:04 Globulin 4.9 g/dL (2.5-4.5) H 02/16/17 04:04 Albumin/Globulin Ratio 0.4 Ratio (1.1-2.1) L 02/16/17 04:04 Vancomycin Trough 21.4 ug/mL (15-20) H 02/14/17 20:28 - Plan (1) MRSA (methicillin resistant Staphylococcus aureus) infection Status: Acute Plan: continue vancomycin
--- NOTE | 2017-02-16 16:59 | PCM.PROG ---
Progress Note - Progress Note for Day of Date: 02/16/17 - Subjective Subjective: Patient is a 56 year old white male who is in this hospital as a swingbed for treatment of MRSA positive blood cultures which is being treated with Vancomycin IV. Vital signs this am are 98.5, 96, 18,100% on , 112/. Labs are within normal limits with the exception of RBC 4.10, Hgb 12.1, Hct 36.0 , Eos% 5.9, Eos# 0.5, Chloride 109, Alkaline Phosphate 142, Albumin 2.2, Globulin 4.9, albumin/globulin ratio 0.4 - Past Medical Family Social History Past Med/Fam/Surg Hx: No changes since H&P Allergies: Allergies Haloperidol [From Haldol] Allergy (Unknown, Verified 01/03/15 22:09) - Review of Systems ROS: No change since H&P - Vital Signs and I&O's Vital Signs: 98.5, 96, 18,100% on RA, 112/. Intake and Output: Intake & Output 02/14/17 02/15/17 02/16/17 02/17/17 11:59 11:59 11:59 11:59 Intake Total 1250 1490 1620 400 Balance 1250 1490 1620 400 - Physical Exam Oriented: Unable to test Eyes: Normal Ear: Normal Nose: Normal Throat: Normal Respiratory: Normal Cardiovascular: Normal : Normal Auscultation: Bowel Sounds: Normal Tenderness: Normal Skin: Normal Musculoskeletal: Normal Psychiatric: Normal Mood Description: Calm Affect: Normal Speech Pattern: Unclear - Laboratory and Diagnostics Result Diagrams: 02/16/17 04:04 02/16/17 04:04 Labs: Laboratory WBC 7.8 X10^3/uL (3.6-10.0) 02/16/17 04:04 RBC 4.10 X10^6/uL (4.7-6.0) L 02/16/17 04:04 Hgb 12.1 g/dL (13.5-18.0) L 02/16/17 04:04 Hct 36.0 % (42.0-54.0) L 02/16/17 04:04 MCV 87.8 fL (80.0-100.0) 02/16/17 04:04 MCH 29.7 pg (27.0-34.0) 02/16/17 04:04 MCHC 33.8 g/dL (33.0-35.0) 02/16/17 04:04 RDW 14.6 % (11.6-16.5) 02/16/17 04:04 Plt Count 346 X10^3/uL (150.0-450.0) 02/16/17 04:04 MPV 7.9 fL (7.4-11.0) 02/16/17 04:04 Neut % 47.7 % (42.0-75.0) 02/16/17 04:04 Lymph % 35.4 % (21.0-51.0) 02/16/17 04:04 [place] % 10.3 % (0.0-13.0) 02/16/17 04:04 Eos % 5.9 % (0.9-2.9) H 02/16/17 04:04 Baso % 0.7 % (0.2-1.0) 02/16/17 04:04 Neut # 3.8 x10^3/uL (2.2-4.8) 02/16/17 04:04 Lymph # 2.8 X10^3/uL (1.3-2.9) 02/16/17 04:04 [place] # 0.8 x10^3/uL (0.3-0.8) 02/16/17 04:04 Eos # 0.5 x10^3/uL (0.0-0.2) H 02/16/17 04:04 Baso # 0.1 X10^3/uL (0.0-0.1) 02/16/17 04:04 Absolute Nucleated RBC 0.1 /100WBC 02/16/17 04:04 ESR 49 MM/HOUR (0-15) H 02/12/17 03:45 Sodium 145 mmol/L (136-145) 02/16/17 04:04 Corrected Sodium TNP 02/16/17 04:04 Potassium 3.9 mmol/L (3.5-5.1) 02/16/17 04:04 Chloride 109 mmol/L (98-107) H 02/16/17 04:04 Carbon Dioxide 28.0 mmol/L (21-32) 02/16/17 04:04 BUN 11 mg/dL (7-18) 02/16/17 04:04 Creatinine 0.70 mg/dL (0.70-1.30) 02/16/17 04:04 Est GFR (MDRD) Af Amer > 60 (>60) 02/16/17 04:04 Est GFR (MDRD) Non-Af > 60 (>60) 02/16/17 04:04 Glucose 88 mg/dL (65-99) 02/16/17 04:04 Calcium 8.8 mg/dL (8.5-10.1) 02/16/17 04:04 Corrected Calcium 10.2 mg/dL (8.5-10.1) H 02/16/17 04:04 Total Bilirubin 0.40 mg/dL (0.2-1.0) 02/16/17 04:04 AST 31 Units/L (15-37) 02/16/17 04:04 ALT 56 Units/L (12-78) 02/16/17 04:04 Alkaline Phosphatase 142 Units/L (46-116) H 02/16/17 04:04 C-Reactive Protein 45.40 mg/L (0-3.0) H 02/12/17 03:45 Total Protein 7.1 g/dL (6.4-8.2) 02/16/17 04:04 Albumin 2.2 g/dL (3.4-5.0) L 02/16/17 04:04 Globulin 4.9 g/dL (2.5-4.5) H 02/16/17 04:04 Albumin/Globulin Ratio 0.4 Ratio (1.1-2.1) L 02/16/17 04:04 Vancomycin Trough 21.4 ug/mL (15-20) H 02/14/17 20:28 - Plan (1) MRSA (methicillin resistant Staphylococcus aureus) infection Status: Acute Plan: continue vancomycin
[2017-02-16 20:39] LABS: CREATININE 0.76 mg/dL (0.70-1.30); VANCOMYCIN,TROUGH 15.3 ug/mL (15-20)
[2017-02-16] MEDS ORDERED: PHARMACY COMMENT IV SCH (20:45)
[2017-02-16] MEDS: ELAVIL PO SCH (21:16)
[2017-02-16] MEDS: ZyrTEC TAB 10 MG PO SCH (21:17)
[2017-02-16] MEDS: KLONOPIN TAB 1 MG PO SCH (21:17)
[2017-02-16] MEDS: COGENTIN TAB 1 MG PO SCH (21:17)
[2017-02-17] MEDS: PERIACTIN TAB 4 MG PO SCH ×4 (06:06→21:00)
[2017-02-17] MEDS: VITAMIN B-6 PO SCH (08:30)
[2017-02-17] MEDS: FIBERCON PO SCH (08:30)
[2017-02-17] MEDS: KEPPRA TAB 500 MG PO SCH ×2 (08:30→20:53)
[2017-02-17] MEDS: VANCOMYCIN 1 GM PREMIX (ADDVANTAGE) 250 ML IV SCH ×2 (08:30→20:48)
[2017-02-17] MEDS: SENOKOT PO SCH ×2 (08:30→20:52)
[2017-02-17] MEDS: COGENTIN TAB 1 MG PO SCH (20:52)
[2017-02-17] MEDS: KLONOPIN TAB 1 MG PO SCH (20:52)
[2017-02-17] MEDS: ELAVIL PO SCH (20:52)
[2017-02-17] MEDS: ZyrTEC TAB 10 MG PO SCH (20:53)
[2017-02-18] MEDS: PERIACTIN TAB 4 MG PO SCH ×3 (05:46→21:00)
[2017-02-18 08:40] LABS: CREATININE 0.72 mg/dL (0.70-1.30)
[2017-02-18 08:53] LABS: VANCOMYCIN,TROUGH 17.5 ug/mL (15-20)
[2017-02-18] MEDS: VANCOMYCIN 1 GM PREMIX (ADDVANTAGE) 250 ML IV SCH ×2 (10:32→20:21)
[2017-02-18] MEDS: VITAMIN B-6 PO SCH (10:33)
[2017-02-18] MEDS: SENOKOT PO SCH ×2 (10:33→20:22)
[2017-02-18] MEDS: KEPPRA TAB 500 MG PO SCH ×2 (10:33→20:23)
[2017-02-18] MEDS: FIBERCON PO SCH (10:38)
[2017-02-18] MEDS: COGENTIN TAB 1 MG PO SCH (20:24)
[2017-02-18] MEDS: ELAVIL PO SCH (20:24)
[2017-02-18] MEDS: ZyrTEC TAB 10 MG PO SCH (20:24)
[2017-02-18] MEDS: KLONOPIN TAB 1 MG PO SCH (20:25)
[2017-02-19] MEDS: PERIACTIN TAB 4 MG PO SCH ×3 (05:44→22:09)
[2017-02-19 06:15] LABS: BASOPHILS # (AUTO) 0.1 X10^3/uL (0.0-0.1); EOSINOPHILS # (AUTO) 0.5 x10^3/uL (0.0-0.2); EOSINOPHILS % (AUTO) 8.2 % (0.9-2.9); HEMATOCRIT 38.1 % (42.0-54.0); HEMOGLOBIN 12.9 g/dL (13.5-18.0); LYMPHOCYTES # (AUTO) 2.4 X10^3/uL (1.3-2.9); LYMPHOCYTES % (AUTO) 37.2 % (21.0-51.0); MEAN CORPUSCULAR HGB CONC 33.9 g/dL (33.0-35.0); MEAN CORPUSCULAR VOLUME 88.3 fL (80.0-100.0); MEAN PLATELET VOLUME 8.2 fL (7.4-11.0); MONOCYTES # (AUTO) 0.6 x10^3/uL (0.3-0.8); MONOCYTES % (AUTO) 9.5 % (0.0-13.0); NEUTROPHILS # (AUTO) 2.8 x10^3/uL (2.2-4.8); NEUTROPHILS % (AUTO) 44.1 % (42.0-75.0); PLATELET COUNT 322 X10^3/uL (150.0-450.0); RED BLOOD COUNT 4.32 X10^6/uL (4.7-6.0); RED CELL DISTRIBUTION WIDTH 14.8 % (11.6-16.5); WHITE BLOOD COUNT 6.3 X10^3/uL (3.6-10.0)
[2017-02-19 06:50] LABS: ALANINE AMINOTRANSFERASE 50 Units/L (12-78); ALBUMIN 2.2 g/dL (3.4-5.0); ALKALINE PHOSPHATASE 147 Units/L (46-116); ASPARTATE AMINO TRANSFERASE 27 Units/L (15-37); BLOOD UREA NITROGEN 11 mg/dL (7-18); CALCIUM 8.6 mg/dL (8.5-10.1); CARBON DIOXIDE 26.7 mmol/L (21-32); CHLORIDE 107 mmol/L (98-107); GLUCOSE 85 mg/dL (65-99); SODIUM 144 mmol/L (136-145); TOTAL PROTEIN 7.2 g/dL (6.4-8.2); eGFR BLACK RACES > 60 (>60); eGFR NON BLACK RACES > 60 (>60)
[2017-02-19 07:23] LABS: ERYTHROCYTE SEDIMENTATION RATE 34 MM/HOUR (0-15)
[2017-02-19] MEDS: VANCOMYCIN 1 GM PREMIX (ADDVANTAGE) 250 ML IV SCH ×2 (09:29→22:03)
[2017-02-19] MEDS: KEPPRA TAB 500 MG PO SCH ×2 (09:30→22:08)
[2017-02-19] MEDS: FIBERCON PO SCH (09:30)
[2017-02-19] MEDS: SENOKOT PO SCH ×2 (09:31→22:08)
[2017-02-19] MEDS: VITAMIN B-6 PO SCH (09:31)
--- NOTE | 2017-02-19 15:38 | PCM.PROG ---
Progress Note - Subjective Subjective: Patient is a 56 year old white male who is in this hospital as a swingbed for treatment of MRSA positive blood cultures which is being treated with Vancomycin IV. Vital signs this am 97.7, 81, 20, 94%, 112/59. Labs within normal limits with the exception of RBC 4.32, Hgb 12.9, Hct 38.1, Eos% 8.2, Eos # 0.5, ESR 34, Creatinine 0.60, Alkaline Phosphate 147, CRP 12.10, Albumin 2.2, Globulin 5.0, Albumin/Globulin Ratio 0.4. Patient Is on day number 13 of IV Vancomycin and will plan to discharge him tomorrow since we will have had 14 days of IV Vancomycin. - Past Medical Family Social History Past Med/Fam/Surg Hx: No changes since H&P Allergies: Allergies Haloperidol [From Haldol] Allergy (Unknown, Verified 01/03/15 22:09) - Review of Systems ROS: No change since H&P - Vital Signs and I&O's Vital Signs: Temperature 97.7 F Pulse Rate [Right Brachial] 91 Pulse Rate [Left Brachial] 81 Pulse Rate [Right Posterior 93 Tibial] Respiratory Rate 20 Blood Pressure [Right Calf] 136/60 Blood Pressure [Right Arm] 93/55 Blood Pressure [Left Arm] 112/59 Blood Pressure 111/56 O2 Sat by Pulse Oximetry 94 Intake and Output: Intake & Output 02/17/17 02/18/17 02/19/17 02/20/17 11:59 11:59 11:59 11:59 Intake Total 1130 1090 1340 1080 Balance 1130 1090 1340 1080 - Physical Exam Oriented: Unable to test Eyes: Normal Ear: Normal Nose: Normal Throat: Normal Respiratory: Normal Cardiovascular: Normal : Normal Auscultation: Bowel Sounds: Normal Tenderness: Normal Skin: Normal Musculoskeletal: Normal Psychiatric: Normal Mood Description: Calm Affect: Normal Speech Pattern: Unclear - Laboratory and Diagnostics Result Diagrams: 02/19/17 04:30 02/19/17 04:30 Labs: Laboratory WBC 6.3 X10^3/uL (3.6-10.0) 02/19/17 04:30 RBC 4.32 X10^6/uL (4.7-6.0) L 02/19/17 04:30 Hgb 12.9 g/dL (13.5-18.0) L 02/19/17 04:30 Hct 38.1 % (42.0-54.0) L 02/19/17 04:30 MCV 88.3 fL (80.0-100.0) 02/19/17 04:30 MCH 30.0 pg (27.0-34.0) 02/19/17 04:30 MCHC 33.9 g/dL (33.0-35.0) 02/19/17 04:30 RDW 14.8 % (11.6-16.5) 02/19/17 04:30 Plt Count 322 X10^3/uL (150.0-450.0) 02/19/17 04:30 MPV 8.2 fL (7.4-11.0) 02/19/17 04:30 Neut % 44.1 % (42.0-75.0) 02/19/17 04:30 Lymph % 37.2 % (21.0-51.0) 02/19/17 04:30 [place] % 9.5 % (0.0-13.0) 02/19/17 04:30 Eos % 8.2 % (0.9-2.9) H 02/19/17 04:30 Baso % 1.0 % (0.2-1.0) 02/19/17 04:30 Neut # 2.8 x10^3/uL (2.2-4.8) 02/19/17 04:30 Lymph # 2.4 X10^3/uL (1.3-2.9) 02/19/17 04:30 [place] # 0.6 x10^3/uL (0.3-0.8) 02/19/17 04:30 Eos # 0.5 x10^3/uL (0.0-0.2) H 02/19/17 04:30 Baso # 0.1 X10^3/uL (0.0-0.1) 02/19/17 04:30 Absolute Nucleated RBC 0.1 /100WBC 02/19/17 04:30 ESR 34 MM/HOUR (0-15) H 02/19/17 04:30 Sodium 144 mmol/L (136-145) 02/19/17 04:30 Corrected Sodium TNP 02/19/17 04:30 Potassium 3.7 mmol/L (3.5-5.1) 02/19/17 04:30 Chloride 107 mmol/L (98-107) 02/19/17 04:30 Carbon Dioxide 26.7 mmol/L (21-32) 02/19/17 04:30 BUN 11 mg/dL (7-18) 02/19/17 04:30 Creatinine 0.60 mg/dL (0.70-1.30) L 02/19/17 04:30 Est GFR (MDRD) Af Amer > 60 (>60) 02/19/17 04:30 Est GFR (MDRD) Non-Af > 60 (>60) 02/19/17 04:30 Glucose 85 mg/dL (65-99) 02/19/17 04:30 Calcium 8.6 mg/dL (8.5-10.1) 02/19/17 04:30 Corrected Calcium 10.0 mg/dL (8.5-10.1) 02/19/17 04:30 Total Bilirubin 0.40 mg/dL (0.2-1.0) 02/19/17 04:30 AST 27 Units/L (15-37) 02/19/17 04:30 ALT 50 Units/L (12-78) 02/19/17 04:30 Alkaline Phosphatase 147 Units/L (46-116) H 02/19/17 04:30 C-Reactive Protein 12.10 mg/L (0-3.0) H 02/19/17 04:30 Total Protein 7.2 g/dL (6.4-8.2) 02/19/17 04:30 Albumin 2.2 g/dL (3.4-5.0) L 02/19/17 04:30 Globulin 5.0 g/dL (2.5-4.5) H 02/19/17 04:30 Albumin/Globulin Ratio 0.4 Ratio (1.1-2.1) L 02/19/17 04:30 Vancomycin Trough 17.5 ug/mL (15-20) 02/18/17 08:24 - Plan (1) MRSA (methicillin resistant Staphylococcus aureus) infection Status: Acute Plan: continue vancomycin
[2017-02-19 21:25] LABS: CREATININE 0.68 mg/dL (0.70-1.30); VANCOMYCIN,TROUGH 18.5 ug/mL (15-20)
[2017-02-19] MEDS: ZyrTEC TAB 10 MG PO SCH (22:08)
[2017-02-19] MEDS: COGENTIN TAB 1 MG PO SCH (22:09)
[2017-02-19] MEDS: ELAVIL PO SCH (22:09)
[2017-02-19] MEDS: KLONOPIN TAB 1 MG PO SCH (22:09)
[2017-02-20 00:34] VITALS: BP 116/55
[2017-02-20] MEDS: PERIACTIN TAB 4 MG PO SCH (06:20)
[2017-02-20] MEDS: VANCOMYCIN 1 GM PREMIX (ADDVANTAGE) 250 ML IV SCH (09:40)
[2017-02-20] MEDS: VITAMIN B-6 PO SCH (09:41)
[2017-02-20] MEDS: KEPPRA TAB 500 MG PO SCH (09:42)
[2017-02-20] MEDS: SENOKOT PO SCH (09:42)
[2017-02-20] MEDS: FIBERCON PO SCH (09:43)
--- NOTE | 2017-02-24 12:54 | DR.CARTERD ---
- Discharge Summary for: Discharge Summary for Date of:: 02/20/17 - Admission Date Date of Admission: 02/10/17 - Admission Diagnoses Admission Diagnosis: MRSA positive blood cultures - Discharge Date Discharge Date: 02/20/17 - Discharge Diagnoses Discharge Diagnosis: MRSA positive blood cultures - Hospital Course Hospital Course: Patient is a 56yo white male who presented to the hospital as a direct admit on 02/06. Patient was previously seen in the ER and blood cultures were drawn and grew out MRSA and has been admitted for futher treatment. Patient continue to do well patient spiked a temperature of 100.3 yesterday at 1999 and this am of 99.8. Patient change to swing bed status on 02/10/17 to continue him on Vancomycin 1gm IV q12hr for treatment of MRSA positive blood cultures. Patient received fourteen days total of IV Vancomycin. Vital signs this am 99.2, 94, 20 , 116/55. Labs within normal limits with the exception og RBC 4.32, Hgb 12.9, Hct 38.1, Eos% 8.2, Eos# 0.5, ESR 34, Creatinine 0.6, Alkaline Phosphate 147, CRP 12.10, Albumin 2.2, Globulin 5.0, Albumin/Globulin ratio. We are going to discharge patient home and have case management set him up with home health. Patient is to continue his home medications of Seroquel 400mg at bedtime, Vitamin B6 50mg PO DAIly, Citrucel caplets PO Daily, Senakot 2 tabs PO BID, Keppra 500mg PO BID, Periactin 4mg PO TID, Clonazepam 1mg at bedtime, Cetrizine 10mg at bedtime, Cogentin 1mg at bedtime, Amitriptyline 50mg at bedtime without any changes and will follow up in 1 week. Labs: Labs within normal limits with the exception of RBC 4.32, Hgb 12.9, Hct 38.1, Eos% 8.2, Eos# 0.5, ESR 34, Creatinine 0.6, Alkaline Phosphate 147, CRP 12.10, Albumin 2.2, Globulin 5.0, Albumin/Globulin ratio 0.4 - Discharge Medications Discharge Medications: Home with home health
== END 2017-02-20 11:06 | disposition home health service (06) | DRG 950 ==
LOC: MED/SURG 10:00
PROVIDERS: ADMIT Internal Medicine; ATTEND Internal Medicine
DX: Z51.89 Encounter for other specified aftercare (principal); A49.02 Methicillin resistant Staphylococcus aureus infection, unspecified site; E87.6 Hypokalemia; F78 Other intellectual disabilities
CPT/HCPCS: 36415; 80053; 80202; 82565; 85025; 85652; 86140; A4216; A4222; J3370

== ENCOUNTER 2017-03-08 15:20 | Inpatient (IN) | payer OTHER, MEDICAID ==
[2017-03-08] MEDS ORDERED: NS 1000 ML 1,000 ML IV ONE (15:25)
[2017-03-08] MEDS ORDERED: NS 1000 ML 1,000 ML ONE (15:28)
[2017-03-08 16:24] LABS: BASOPHILS # (AUTO) 0.1 X10^3/uL (0.0-0.1); BASOPHILS % (AUTO) 0.5 % (0.2-1.0); EOSINOPHILS % (AUTO) 0.1 % (0.9-2.9); HEMATOCRIT 32.7 % (42.0-54.0); LYMPHOCYTES # (AUTO) 1.2 X10^3/uL (1.3-2.9); LYMPHOCYTES % (AUTO) 10.9 % (21.0-51.0); MEAN CORPUSCULAR HEMOGLOBIN 28.8 pg (27.0-34.0); MEAN CORPUSCULAR HGB CONC 33.8 g/dL (33.0-35.0); MEAN CORPUSCULAR VOLUME 85.3 fL (80.0-100.0); MEAN PLATELET VOLUME 8.2 fL (7.4-11.0); MONOCYTES # (AUTO) 1.3 x10^3/uL (0.3-0.8); MONOCYTES % (AUTO) 11.8 % (0.0-13.0); NEUTROPHILS # (AUTO) 8.3 x10^3/uL (2.2-4.8); NEUTROPHILS % (AUTO) 76.7 % (42.0-75.0); PLATELET COUNT 220 X10^3/uL (150.0-450.0); RED BLOOD COUNT 3.83 X10^6/uL (4.7-6.0); RED CELL DISTRIBUTION WIDTH 15.6 % (11.6-16.5); WHITE BLOOD COUNT 10.8 X10^3/uL (3.6-10.0)
[2017-03-08 16:28] LABS: ABG ALLEN TEST POS; ABG BASE EXCESS 3.6 mmol/L (-2.0-2.0); ABG HCO3 25.4 mmol/L (22-26)
[2017-03-08 16:39] LABS: LACTIC ACID 0.9 mmol/L (0.4-2.0)
[2017-03-08 16:40] LABS: B-TYPE NATRIURETIC PEPTIDE 49.8 pg/mL (0-79)
--- NOTE | 2017-03-08 16:44 | RAD ---
HISTORY: Chest pain. Study: Single-view chest. Comparison: February 09, 2017. Findings: The trachea is midline. The cardiac silhouette is enlarged. There is improvement without resolution of the parenchymal opacities in the left lung base. The left upper lung zone and right lung are rela tively clear . There is no pneumothorax . The bony thorax is grossly unremarkable. IMPRESSION: Improvement without complete resolution of the parenchymal opacities in the left lung base. Followu p to complete is recommended to exclude underlying mass. Alternatively, CT of the chest with IV cont rast could be considered for further evaluation. Reported By:
[2017-03-08 16:47] LABS: ALANINE AMINOTRANSFERASE 43 Units/L (12-78); ALBUMIN 2.1 g/dL (3.4-5.0); ALKALINE PHOSPHATASE 189 Units/L (46-116); ASPARTATE AMINO TRANSFERASE 39 Units/L (15-37); BLOOD UREA NITROGEN 18 mg/dL (7-18); CALCIUM 7.3 mg/dL (8.5-10.1); CARBON DIOXIDE 24.6 mmol/L (21-32); CHLORIDE 101 mmol/L (98-107); COR CA(FOR HYPOALB) 8.8 mg/dL (8.5-10.1); CREATINE KINASE 273 Units/L (39-308); CREATINE KINASE MB 2.6 ng/mL (0-4.0); CREATININE 0.66 mg/dL (0.70-1.30); GLUCOSE 98 mg/dL (65-99); SODIUM 134 mmol/L (136-145); TOTAL PROTEIN 6.6 g/dL (6.4-8.2); TROPONIN I < 0.02 ng/mL (0-1.5); eGFR BLACK RACES > 60 (>60); eGFR NON BLACK RACES > 60 (>60)
[2017-03-08] MEDS: NS + KCL 40 MEQ/L 1,000 ML IV SCH (18:12)
[2017-03-08] MEDS ORDERED: ROCEPHIN VIAL 1 GM 1 GM in NS 50 ML IV + SPIKE MINIBAG* 50 ML IV ONE (18:13)
[2017-03-08] MEDS ORDERED: NS 50 ML IV + SPIKE MINIBAG* 50 ML IV ONE (18:35)
[2017-03-08] MEDS ORDERED: ROCEPHIN VIAL 1 GM ONE (18:36)
[2017-03-08] MEDS ORDERED: NS 100 ML IV 100 ML IV ONE (18:41)
--- NOTE | 2017-03-08 19:49 | DR.SOBA ---
HPI - Time Seen Time seen: 15:30 - Primary Care Physician Primary Care Physician: WILLIAN - HPI Comment HPI Comment: PATIENT RECENTLY DISCHARGE FROM - Complaints Chief Complaint Doctors Comments: SOB AND NO URINATION IN 2 DAYS. Chief Complaint:: EMS STATES THAT PT'S QUANTITATIVE ASSOCIATE SAYS PT. HAS NO VOIDED IN 1-2 DAYS AND PT. HAS BEEN HAVING SOME RAPID, SHALLOW BREATHING. - Reviewed Nurses Notes Reviewed: Yes - Source History Provided: EMS - Mode of Arrival Mode of Arrival: EMS - Timing Onset of Chief Complaint: 03/06/17 - Duration Duration: Days - Context Onset:: With Heavy Exertion PE Risk Factors:: Immobilization History of:: CHF Currently on:: Neither Prehospital Care:: Inhaled B2, Furosemide - Modifying Factors Worsens:: Nothing Improves:: Nothing - Associated Signs and Symptoms Associated Signs and Symptoms: Chest Pain, Calf Pain - If Chest Pain Quality: Other (HURTS.) Location: Chest Wall - If Cough Cough: None PMH - PMH Past Medical History: Yes Past Medical History: Anxiety, Seizures Past Surgical History: Yes Surgical History: Ortho Surgery - Family History History of Family Medical Conditions: Yes Family Medical History: Coronary Artery Disease - Social History Does patient currently use any type of tobacco product: No Have you used tobacco products in the last 12 months: No Type of Tobacco Use: None Does any household member use tobacco: No Alcohol Use: None Do you use any recreational Drugs:: No Lives With: Sitter Lives Where: Home - infectious screening In the last 2 months have you had wt loss of >10#?: NO Have you had fever, night sweats or hemotysis?: No Have you traveled outside the country in the last 6 months?: No Isolation: Standard ROS - Review of Systems Constitutional: Weakness, Fatigue, Loss of Appetite. negative: Chills Eyes: negative: Eye Pain, Discharge ENTM: negative: Ear Pain, Nose Discharge, Nose Congestion, Throat Pain Respiratoy: Non-Productive Cough, Short of Breath, Wheezing. negative: Hemoptysis Cardiovascular: Chest Pain, Edema Genitourinary: negative: Hematuria Neurological: Weakness Musculoskeletal: Back Pain Integumentary: Dryness Endocrine: negative: Flushing All Other Systems: Reviewed and Negative (PER GAS LINE REPAIRER.) PE - Vital Signs Vitals: Temperature 98.3 F Pulse Rate [Apical] 96 Pulse Rate 97 Respiratory Rate 31 Blood Pressure [Right Calf] 136/60 Blood Pressure [Right Arm] 127/70 Blood Pressure [Left Arm] 182/89 Blood Pressure 96/63 O2 Sat by Pulse Oximetry 99 - General Limitations: Other (APHASIA.) General Appearance: Alert - Head Head Exam: Normal Inspection - Eyes Eye exam: Normal Appearance - ENT ENT Exam: Normal External Ear Exam - Neck Neck Exam: Trachea Midline. negative: Tenderness, Meningismus - Chest Chest Inspection: Symmetric Chest Wall Rise MDM - Additional Information Obtained Additional Information Obtained From: Technologist Infectious Disease - Differential Diagnosis Differential Diagnosis: Bronchitis, CHF, COPD, Mycardial Infarction, Pneumonia, Pulmonary embolism, Respiratory Insufficiency, Other (UTI) Course - Treatment Treatment: SEE ORDERS. - Education/Counseling Education/Counseling: Family (BAGGAGE AGENT SUPERVISOR.) Educated On: Treatment, Diagnosis ROR - Labs Reviewed Laboratory Results Reviewed?: Yes Result Diagrams: 03/09/17 05:00 03/09/17 05:00 Laboratory: WBC 10.8 X10^3/uL (3.6-10.0) H 03/08/17 15:23 RBC 3.83 X10^6/uL (4.7-6.0) L 03/08/17 15:23 Hgb 11.0 g/dL (13.5-18.0) L 03/08/17 15:23 Hct 32.7 % (42.0-54.0) L 03/08/17 15:23 MCV 85.3 fL (80.0-100.0) 03/08/17 15:23 MCH 28.8 pg (27.0-34.0) 03/08/17 15:23 MCHC 33.8 g/dL (33.0-35.0) 03/08/17 15:23 RDW 15.6 % (11.6-16.5) 03/08/17 15:23 Plt Count 220 X10^3/uL (150.0-450.0) 03/08/17 15:23 MPV 8.2 fL (7.4-11.0) 03/08/17 15:23 Neut % 76.7 % (42.0-75.0) H 03/08/17 15:23 Lymph % 10.9 % (21.0-51.0) L 03/08/17 15:23 [place] % 11.8 % (0.0-13.0) 03/08/17 15:23 Eos % 0.1 % (0.9-2.9) L 03/08/17 15:23 Baso % 0.5 % (0.2-1.0) 03/08/17 15:23 Neut # 8.3 x10^3/uL (2.2-4.8) H 03/08/17 15:23 Lymph # 1.2 X10^3/uL (1.3-2.9) L 03/08/17 15:23 [place] # 1.3 x10^3/uL (0.3-0.8) H 03/08/17 15:23 Eos # 0.0 x10^3/uL (0.0-0.2) 03/08/17 15:23 Baso # 0.1 X10^3/uL (0.0-0.1) 03/08/17 15:23 Absolute Nucleated RBC 0.0 /100WBC 03/08/17 15:23 Sample Site Right radial 03/08/17 16:19 ABG pH 7.550 (7.35-7.45) H 03/08/17 16:19 ABG pCO2 29.0 mmHg (35.0-45.0) L 03/08/17 16:19 ABG pO2 117.0 mmHg (80.0-100.0) H 03/08/17 16:19 ABG HCO3 25.4 mmol/L (22-26) 03/08/17 16:19 ABG O2 Saturation 99.0 % (90-100) 03/08/17 16:19 ABG Base Excess 3.6 mmol/L (-2.0-2.0) H 03/08/17 16:19 Evans Test Pos 03/08/17 16:19 A-a Gradient 46.0 mmHg 03/08/17 16:19 FiO2 28.000 03/08/17 16:19 Blood Gas Comments Mei well aw 03/08/17 16:19 Sodium 134 mmol/L (136-145) L 03/08/17 16:11 Corrected Sodium TNP 03/08/17 16:11 Potassium 2.5 mmol/L (3.5-5.1) L* 03/08/17 16:11 Chloride 101 mmol/L (98-107) 03/08/17 16:11 Carbon Dioxide 24.6 mmol/L (21-32) 03/08/17 16:11 BUN 18 mg/dL (7-18) 03/08/17 16:11 Creatinine 0.66 mg/dL (0.70-1.30) L 03/08/17 16:11 Est GFR (MDRD) Af Amer > 60 (>60) 03/08/17 16:11 Est GFR (MDRD) Non-Af > 60 (>60) 03/08/17 16:11 Glucose 98 mg/dL (65-99) 03/08/17 16:11 Lactic Acid 0.9 mmol/L (0.4-2.0) 03/08/17 16:11 Calcium 7.3 mg/dL (8.5-10.1) L 03/08/17 16:11 Corrected Calcium 8.8 mg/dL (8.5-10.1) 03/08/17 16:11 Total Bilirubin 0.50 mg/dL (0.2-1.0) 03/08/17 16:11 AST 39 Units/L (15-37) H 03/08/17 16:11 ALT 43 Units/L (12-78) 03/08/17 16:11 Alkaline Phosphatase 189 Units/L (46-116) H 03/08/17 16:11 Creatine Kinase 273 Units/L (39-308) 03/08/17 16:11 CK-MB (CK-2) 2.6 ng/mL (0-4.0) 03/08/17 16:11 CK/CKMB % Calc 1.0 % (<4) 03/08/17 16:11 Troponin I < 0.02 ng/mL (0-1.5) 03/08/17 16:11 B-Natriuretic Peptide 49.8 pg/mL (0-79) 03/08/17 16:11 Total Protein 6.6 g/dL (6.4-8.2) 03/08/17 16:11 Albumin 2.1 g/dL (3.4-5.0) L 03/08/17 16:11 Globulin 4.5 g/dL (2.5-4.5) 03/08/17 16:11 Albumin/Globulin Ratio 0.5 Ratio (1.1-2.1) L 03/08/17 16:11 - XRAY XRAY Interpreted by: Radiologist XRAY Findings: REPORT DISCUSS WITH BAGGAGE AGENT SUPERVISOR. - EKG Rhythm: NSR (EKG NOTED) - Diagnosis Discharge Problem: Dehydration, Respiratory distress Hypotension Qualifiers: Hypotension type: unspecified hypotension type Qualified Code(s): I95.9 - Hypotension, unspecified - Discharge Plan Disposition: 01 HOME, SELF-CARE Condition: Stable - Follow ups/Referrals - Instructions
--- NOTE | 2017-03-08 20:08 | CT ---
CTA chest with contrast per pulmonary embolism protocol Indication: Rapid breathing Comparison: none available Technique: Multiple axial images of the chest were obtained from the thoracic inlet to the upper abd omen after the administration of IV contrast.Coronal and Sagittal MIP images were also provided. Radiation dose reduction techniques were performed utilizing adjustment for MA/kVP based on patient body size. Findings: The examination is limited by patient inability to remain still during the examination No central or segmental pulmonary arterial filling defect is identified. There is normal caliber of the pulmonary artery without CT evidence or right heart strain. The heart size is within normal limits without pericardial effusion. No mediastinal, hilar or axilla ry adenopathy. There is compressive atelectasis of the left lower lobe. The remaining lungs are andrea sly clear however limited by respiratory motion and patient motion. No large effusion or pneumothora x. The upper abdomen demonstrates round hypoattenuating lesions within the lateral and medial hepatic s egments which are indeterminate however likely to represent cyst based on Hounsfield attenuation. Pu nctate nonobstructing stone is noted within the midpole of the left kidney. 2. Lytic lesion with within the right anterior inferior iliac spine without adjacent ossification no dominic. There is a soft tissue component to the lesion measuring approximately 4.4 x 3.1 cm on axial im age 160. Abnormal ossification extends along the ileus psoas muscle and tendon with distension of th e ileus psoas bursa. IMPRESSION: 1. No PTE identified. 2. Limited evaluation of the chest demonstrates no acute cardiopulmonary abnormality. There is comp ressive atelectasis within the left lower lobe secondary to left hemidiaphragm elevation. 3. Indeterminate lytic lesion within the right anterior iliac spine with adjacent new bone formation /heterotopic ossification and what appears to be a soft tissue mass extending from the inner margin of the iliac crest into the right iliacus muscle. Findings may represent sequela of chronic avulsion injury of the rectus femoris and iliopsoas muscle with associated secondary ilopsoas bursitis iliop soas bursitis; however given the soft tissue component and abnormal cortical margin correlation with contrast-enhanced right hip MRI is recommended to exclude an underlying neoplastic process. Reported By:
[2017-03-08 22:31] VITALS: BMI 17.2
[2017-03-08 22:42] LABS: BILIRUBIN,URINE 2+ (NEGATIVE); BLOOD/HEMOGLOBIN,URINE 3+ (NEGATIVE); GLUCOSE, URINE NEGATIVE (NEGATIVE); KETONES,URINE NEGATIVE (NEGATIVE); LEUKOCYTE ESTERASE ,URINE NEGATIVE (NEGATIVE); NITRITES,URINE NEGATIVE (NEGATIVE); PROTEIN,URINE 4+ (NEGATIVE); UROBILINOGEN,URINE NORMAL (NORMAL)
[2017-03-08 22:43] LABS: APPEARANCE,URINE TURBID (CLEAR); BACTERIA,URINE NEGATIVE /HPF (NEGATIVE); COLOR,URINE BLOODY (YELLOW); RBC,URINE TNTC /HPF (NEGATIVE); SQUAMOUS EPITHELIAL CELL,UR RARE /HPF (NEGATIVE)
[2017-03-08 23:34] LABS: CREATINE KINASE 299 Units/L (39-308); TROPONIN I < 0.02 ng/mL (0-1.5)
[2017-03-08] MEDS ORDERED: TYLENOL 325 MG TAB PO ONE (23:37)
[2017-03-08] MEDS ORDERED: TYLENOL SUPP 650 MG ONE (23:42)
[2017-03-08] MEDS: TYLENOL SUPP 650 MG PR PRN (23:52)
[2017-03-09] MEDS: TYLENOL SUPP 650 MG PR PRN (00:38)
[2017-03-09] MEDS: NS + KCL 40 MEQ/L 1,000 ML IV SCH ×3 (00:46→09:44)
[2017-03-09 06:03] LABS: ALANINE AMINOTRANSFERASE 44 Units/L (12-78); ALBUMIN 2.1 g/dL (3.4-5.0); ALKALINE PHOSPHATASE 184 Units/L (46-116); ASPARTATE AMINO TRANSFERASE 42 Units/L (15-37); BLOOD UREA NITROGEN 11 mg/dL (7-18); CALCIUM 7.5 mg/dL (8.5-10.1); CARBON DIOXIDE 25.3 mmol/L (21-32); CHLORIDE 108 mmol/L (98-107); GLUCOSE 86 mg/dL (65-99); SODIUM 141 mmol/L (136-145); TOTAL PROTEIN 6.5 g/dL (6.4-8.2); eGFR BLACK RACES > 60 (>60); eGFR NON BLACK RACES > 60 (>60)
[2017-03-09 06:10] LABS: CREATINE KINASE 281 Units/L (39-308); CREATINE KINASE MB 2.9 ng/mL (0-4.0); TROPONIN I < 0.02 ng/mL (0-1.5)
[2017-03-09 06:16] LABS: BASOPHILS % (AUTO) 0.2 % (0.2-1.0); EOSINOPHILS % (AUTO) 0.2 % (0.9-2.9); HEMATOCRIT 32.1 % (42.0-54.0); HEMOGLOBIN 10.9 g/dL (13.5-18.0); LYMPHOCYTES # (AUTO) 0.9 X10^3/uL (1.3-2.9); LYMPHOCYTES % (AUTO) 8.3 % (21.0-51.0); MEAN CORPUSCULAR HEMOGLOBIN 29.3 pg (27.0-34.0); MEAN CORPUSCULAR HGB CONC 33.8 g/dL (33.0-35.0); MEAN CORPUSCULAR VOLUME 86.7 fL (80.0-100.0); MEAN PLATELET VOLUME 8.4 fL (7.4-11.0); MONOCYTES % (AUTO) 9.6 % (0.0-13.0); NEUTROPHILS # (AUTO) 8.8 x10^3/uL (2.2-4.8); NEUTROPHILS % (AUTO) 81.7 % (42.0-75.0); PLATELET COUNT 223 X10^3/uL (150.0-450.0); RED CELL DISTRIBUTION WIDTH 15.3 % (11.6-16.5); WHITE BLOOD COUNT 10.7 X10^3/uL (3.6-10.0)
[2017-03-09] MEDS: ROCEPHIN VIAL 1 GM 1 GM in NS 50 ML IV + SPIKE MINIBAG* 50 ML IV SCH (09:43)
[2017-03-09] MEDS ORDERED: TYLENOL 325 MG TAB PO ONE (12:25)
[2017-03-09] MEDS ORDERED: KLONOPIN TAB 1 MG PO PRN (12:41)
[2017-03-09] MEDS: TYLENOL 325 MG TAB PO PRN (12:43)
[2017-03-09] MEDS ORDERED: PATIENT'S HOME MEDICATION (Misc Home Med 1 TAB) PO SCH (12:45)
[2017-03-09] MEDS: KEPPRA TAB 500 MG PO SCH ×2 (13:22→21:04)
[2017-03-09 14:07] LABS: ALANINE AMINOTRANSFERASE 56 Units/L (12-78); ALKALINE PHOSPHATASE 265 Units/L (46-116); ASPARTATE AMINO TRANSFERASE 79 Units/L (15-37); BLOOD UREA NITROGEN 8 mg/dL (7-18); CALCIUM 7.3 mg/dL (8.5-10.1); CARBON DIOXIDE 24.3 mmol/L (21-32); CHLORIDE 110 mmol/L (98-107); COR CA(FOR HYPOALB) 8.9 mg/dL (8.5-10.1); CREATININE 0.77 mg/dL (0.70-1.30); GLUCOSE 110 mg/dL (65-99); SODIUM 141 mmol/L (136-145); TOTAL PROTEIN 6.5 g/dL (6.4-8.2); eGFR BLACK RACES > 60 (>60); eGFR NON BLACK RACES > 60 (>60)
[2017-03-09] MEDS ORDERED: VANCOMYCIN 1 GM PREMIX (ADDVANTAGE) 250 ML IV ONE (14:28)
[2017-03-09] MEDS ORDERED: NS 1000 ML 1,000 ML ONE (14:41)
[2017-03-09] MEDS ORDERED: NS + KCL 20 MEQ/L 1,000 ML IV ONE ×2 (14:44)
[2017-03-09] MEDS: NS + KCL 20 MEQ/L 1,000 ML IV SCH (14:50)
[2017-03-09] MEDS: VANCOMYCIN 1 GM PREMIX (ADDVANTAGE) 250 ML IV SCH ×2 (14:50→21:04)
[2017-03-09] MEDS: [UNRECOGNIZED DRUG - OTHER] PO SCH ×2 (16:22→16:23)
[2017-03-09] MEDS ORDERED: CETIRIZINE HCL PO SCH (21:00)
[2017-03-09] MEDS: COGENTIN TAB 1 MG PO SCH (21:04)
[2017-03-09] MEDS: ZyrTEC TAB 10 MG PO SCH (21:04)
[2017-03-09] MEDS: SENOKOT PO SCH (21:04)
[2017-03-10 05:53] LABS: ALANINE AMINOTRANSFERASE 57 Units/L (12-78); ALKALINE PHOSPHATASE 237 Units/L (46-116); ASPARTATE AMINO TRANSFERASE 61 Units/L (15-37); BLOOD UREA NITROGEN 9 mg/dL (7-18); CALCIUM 7.7 mg/dL (8.5-10.1); CARBON DIOXIDE 25.9 mmol/L (21-32); CHLORIDE 112 mmol/L (98-107); COR CA(FOR HYPOALB) 9.3 mg/dL (8.5-10.1); CREATININE 0.62 mg/dL (0.70-1.30); GLUCOSE 91 mg/dL (65-99); MAGNESIUM 1.6 mg/dL (1.7-2.9); SODIUM 145 mmol/L (136-145); TOTAL PROTEIN 6.4 g/dL (6.4-8.2); eGFR BLACK RACES > 60 (>60); eGFR NON BLACK RACES > 60 (>60)
[2017-03-10 06:10] LABS: BASOPHILS % (AUTO) 0.1 % (0.2-1.0); EOSINOPHILS % (AUTO) 0.1 % (0.9-2.9); HEMATOCRIT 29.9 % (42.0-54.0); HEMOGLOBIN 10.2 g/dL (13.5-18.0); LYMPHOCYTES # (AUTO) 1.4 X10^3/uL (1.3-2.9); LYMPHOCYTES % (AUTO) 12.9 % (21.0-51.0); MEAN CORPUSCULAR HEMOGLOBIN 29.1 pg (27.0-34.0); MEAN CORPUSCULAR HGB CONC 34.1 g/dL (33.0-35.0); MEAN CORPUSCULAR VOLUME 85.3 fL (80.0-100.0); MEAN PLATELET VOLUME 8.6 fL (7.4-11.0); MONOCYTES % (AUTO) 8.9 % (0.0-13.0); NEUTROPHILS # (AUTO) 8.4 x10^3/uL (2.2-4.8); PLATELET COUNT 238 X10^3/uL (150.0-450.0); RED BLOOD COUNT 3.51 X10^6/uL (4.7-6.0); RED CELL DISTRIBUTION WIDTH 15.5 % (11.6-16.5); WHITE BLOOD COUNT 10.7 X10^3/uL (3.6-10.0)
[2017-03-10] MEDS: NS + KCL 20 MEQ/L 1,000 ML IV SCH ×2 (06:35→16:02)
[2017-03-10] MEDS ORDERED: PYRIDOXINE HCL 50 MG PO SCH (09:00)
[2017-03-10] MEDS ORDERED: NS 100 ML IV 100 ML IV ONE (09:42)
[2017-03-10] MEDS: ROCEPHIN VIAL 1 GM 1 GM in NS 50 ML IV + SPIKE MINIBAG* 50 ML IV SCH (09:49)
[2017-03-10] MEDS: VANCOMYCIN 1 GM PREMIX (ADDVANTAGE) 250 ML IV SCH ×2 (09:49→21:24)
[2017-03-10] MEDS: VITAMIN B-6 PO SCH (10:42)
[2017-03-10] MEDS: SENOKOT PO SCH ×2 (10:43→21:24)
[2017-03-10] MEDS: KEPPRA TAB 500 MG PO SCH ×2 (10:43→21:24)
[2017-03-10] MEDS: FIBERCON PO SCH (10:46)
[2017-03-10] MEDS ORDERED: NS IRRIGATION 500 ML IR ONE (14:49)
--- NOTE | 2017-03-10 14:59 | CT ---
HISTORY: Abdominal pain and somewhat destructive iliac bony lesion. EXAM: POST CONTRAST CT EXAM OF THE ABDOMEN AND PELVIS. TECHNIQUE: Axial post contrast CT images of the abdomen/pelvis were obtained with coronal and sagitt al reformatted / reconstructed CT images of the abd/pelvis also performed. COMPARISON: RECENT CTA EXAM DATED MARCH 08, 2017. FINDINGS: There is elevation of left hemidiaphragm with left basilar atelectasis observed. This is u nchanged from prior. The heart is mildly enlarged without pericardial effusion. The right lung base is clear. There are numerous hypodensities, numbering at least 4 in all, in the liver which cannot b e confidently labeled as simple Liver cysts. The largest is seen in the left hepatic lobe and measur es 12 mm. These will need close followup. The pancreas is not well or completely evaluated secondary to partial volume averaging. The spleen, adrenal glands, kidneys, and gallbladder are unremarkable. The portal vein is patent. The stomach is decompressed and not well evaluated. Since the prior exam , now seen is diffuse small bowel wall edema with some small bowel wall enhancement. There is also s ome fluid in the pelvis and pericolic gutter as well as mild edema seen throughout the colon. These findings are suspicious for a gastroenteritis / bowel wall enteritis; correlation for any infectious etiology or inflammatory condition to account for this finding is recommended. No gross free air or drainable peritoneal fluid collection is seen. Again seen is the destructive right iliac bony lesion which could reflect a metastasis, as previousl y discussed. Given the liver lesions, followup CT PET imaging and a metastatic disease workup is sug gested. There is air in the bladder which may be iatrogenic in nature from a Perez catheter placemen t or from a UTI. Please correlate with urinalysis. The rectum is distended by stool. There is a Fole y seen in the penile urethra which does not terminate in the expected location of the bladder. Pleas e correlate for repositioning of this Perez catheter, as clinically required. No other abdominopelvi c changes from the prior examination are appreciated. IMPRESSION: There is elevation of left hemidiaphragm with left basilar atelectasis observed. This is unchanged f rom prior. The heart is mildly enlarged without pericardial effusion. The right lung base is clear. There are numerous hypodensities, numbering at least 4 in all, in the liver which cannot be confiden tly labeled as simple Liver cysts. The largest is seen in the left hepatic lobe and measures 12 mm. These will need close followup. The pancreas is not well or completely evaluated secondary to partia l volume averaging. The spleen, adrenal glands, kidneys, and gallbladder are unremarkable. The roland l vein is patent. The stomach is decompressed and not well evaluated. Since the prior exam, now seen is diffuse small bowel wall edema with some small bowel wall enhancement. There is also some fluid in the pelvis and pericolic gutter as well as mild edema seen throughout the colon. These findings a re suspicious for a gastroenteritis / bowel wall enteritis; correlation for any infectious etiology or inflammatory condition to account for this finding is recommended. No gross free air or drainable peritoneal fluid collection is seen. Again seen is the destructive right iliac bony lesion which could reflect a metastasis, as previousl y discussed. Given the liver lesions, followup CT PET imaging and a metastatic disease workup is sug gested. There is air in the bladder which may be iatrogenic in nature from a Perez catheter placemen t or from a UTI. Please correlate with urinalysis. The rectum is distended by stool. There is a Fole y seen in the penile urethra which does not terminate in the expected location of the bladder. Pleas e correlate for repositioning of this Perez catheter, as clinically required. No other abdominopelvi c changes from the prior examination are appreciated. Reported By:
[2017-03-10 19:57] LABS: CREATININE 0.64 mg/dL (0.70-1.30); VANCOMYCIN,TROUGH 12.4 ug/mL (15-20)
[2017-03-10] MEDS: ZyrTEC TAB 10 MG PO SCH (21:24)
[2017-03-10] MEDS: COGENTIN TAB 1 MG PO SCH (21:24)
[2017-03-11 06:15] LABS: BASOPHILS % (AUTO) 0.2 % (0.2-1.0); EOSINOPHILS # (AUTO) 0.1 x10^3/uL (0.0-0.2); EOSINOPHILS % (AUTO) 1.1 % (0.9-2.9); HEMATOCRIT 27.8 % (42.0-54.0); HEMOGLOBIN 9.5 g/dL (13.5-18.0); LYMPHOCYTES # (AUTO) 2.1 X10^3/uL (1.3-2.9); LYMPHOCYTES % (AUTO) 22.4 % (21.0-51.0); MEAN CORPUSCULAR HEMOGLOBIN 29.1 pg (27.0-34.0); MEAN CORPUSCULAR VOLUME 85.5 fL (80.0-100.0); MEAN PLATELET VOLUME 8.7 fL (7.4-11.0); MONOCYTES # (AUTO) 0.9 x10^3/uL (0.3-0.8); MONOCYTES % (AUTO) 9.7 % (0.0-13.0); NEUTROPHILS # (AUTO) 6.3 x10^3/uL (2.2-4.8); NEUTROPHILS % (AUTO) 66.6 % (42.0-75.0); PLATELET COUNT 226 X10^3/uL (150.0-450.0); RED BLOOD COUNT 3.25 X10^6/uL (4.7-6.0); RED CELL DISTRIBUTION WIDTH 15.4 % (11.6-16.5); WHITE BLOOD COUNT 9.4 X10^3/uL (3.6-10.0)
[2017-03-11 06:28] LABS: ALANINE AMINOTRANSFERASE 54 Units/L (12-78); ALBUMIN 1.7 g/dL (3.4-5.0); ALKALINE PHOSPHATASE 199 Units/L (46-116); ASPARTATE AMINO TRANSFERASE 47 Units/L (15-37); BLOOD UREA NITROGEN 8 mg/dL (7-18); CALCIUM 7.4 mg/dL (8.5-10.1); CARBON DIOXIDE 27.1 mmol/L (21-32); COR CA(FOR HYPOALB) 9.2 mg/dL (8.5-10.1); CREATININE 0.52 mg/dL (0.70-1.30); GLUCOSE 90 mg/dL (65-99); TOTAL PROTEIN 5.8 g/dL (6.4-8.2); eGFR BLACK RACES > 60 (>60); eGFR NON BLACK RACES > 60 (>60)
[2017-03-11] MEDS: NS + KCL 20 MEQ/L 1,000 ML IV SCH (06:32)
[2017-03-11 06:33] LABS: SODIUM 150 mmol/L (136-145)
[2017-03-11 06:35] LABS: CHLORIDE 116 mmol/L (98-107)
[2017-03-11] MEDS ORDERED: K-LYTE EFFERVESCENT PO PRN (06:53)
[2017-03-11] MEDS ORDERED: POTASSIUM CHLORIDE LIQ 20 MEQ UDC PO PRN (06:53)
[2017-03-11] MEDS ORDERED: K-DUR TAB 20 MEQ PO PRN (06:53)
[2017-03-11] MEDS ORDERED: MAGNESIUM SULFATE 1 GM/100 mL PREMIX 1 GM/100 ML BAG IV ONE (08:00)
[2017-03-11] MEDS ORDERED: NS 1/2 + KCL 20 MEQ/L 1,000 ML IV SCH (08:00)
[2017-03-11] MEDS: ROCEPHIN VIAL 1 GM 1 GM in NS 50 ML IV + SPIKE MINIBAG* 50 ML IV SCH (08:45)
[2017-03-11] MEDS: VANCOMYCIN 1 GM PREMIX (ADDVANTAGE) 250 ML IV SCH ×2 (08:45→21:04)
[2017-03-11] MEDS: VITAMIN B-6 PO SCH (08:46)
[2017-03-11] MEDS: KEPPRA TAB 500 MG PO SCH ×2 (08:46→21:04)
[2017-03-11] MEDS: FIBERCON PO SCH (08:47)
[2017-03-11] MEDS: SENOKOT PO SCH ×2 (08:47→21:04)
[2017-03-11] MEDS ORDERED: NS 1/2 1000 ML IV 1,000 ML IV SCH (11:00)
--- NOTE | 2017-03-11 11:49 | PCM.PROG ---
Progress Note - Progress Note for Day of Date: 03/11/17 - Subjective Subjective: Patient is a 56yo male who is a patient of ours that was admitted for hypotension, dehydration, and respiratory distress. Patient is mentally and physically handicapped. Patients family member is at bedside. Patient lies in bed this am with eyes closed. Family member states that patient appears to be in pain when he lies on his right hip. Lungs clear on auscultation. Bowel sounds normal in all quadrants with no tenderness noted to abdomen. Labs are normal with exception of RBC 3.25, HGB: 9.5, HCT: 27.8, SODIUM 150, POTASSIUM 3.0, CHLORIDE 116, CREATININE 0.52, CALCIUM 7.4, MAGNESIUM 1.6, AST 47, ALKALINE PHOS 199, TOTAL PROTEIN 5.8, ALBUMIN 1.7. Abdomen/pelvis ct that was obtained yesterday reports left basilar atelectasis, numerous hypodensities in the liver, liver cyst, gastroenteritis/bowel wall enteritis. Also reports destructive right iliac bony lesion which could reflect a metastasis. PET scan suggested. We will changed fluids to NS, check PSA and CEA, administer mag rider, and start albumin. We will recheck labs and follow up with patient in am. - Past Medical Family Social History Past Med/Fam/Surg Hx: No changes since H&P Allergies: Allergies haloperidol [From Haldol] Allergy (Verified 03/08/17 18:41) - Review of Systems ROS: No change since H&P - Vital Signs and I&O's Vital Signs: Temperature 99.4 F Pulse Rate [Apical] 79 Respiratory Rate 22 Blood Pressure [Right Arm] 103/56 O2 Sat by Pulse Oximetry 100 Intake and Output: Intake & Output 03/08/17 03/09/17 03/10/17 03/11/17 11:59 11:59 11:59 11:59 Intake Total 3868 3028 1764 Output Total 1100 1900 1680 Balance 2768 1128 84 - Physical Exam Oriented: Normal, Other (MR, at baseline normal ) Eyes: Normal Ear: Normal Nose: Normal Throat: Normal Respiratory: Normal Cardiovascular: Normal. negative: Tachycardia, Bradycardia, Irregular, S3, S4, Systolic, Diastolic, Murmur, Edema, Other : Normal. negative: Dysuria, Hematuria, Frequency, Discharge, Testicular Pain , Bleeding, , Other Auscultation: Bowel Sounds: Normal. negative: Bruit, Absent, Increased, Decreased, High Pitched, Other Palpation: Normal. negative: Spleen Enlarged, Liver Enlarged, Mass Pulsatile, Other Tenderness: Moderate Skin: Normal Musculoskeletal: Hip, Tender Psychiatric: Normal Mood Description: Calm Affect: Normal Speech Pattern: Aphasic - Laboratory and Diagnostics Result Diagrams: 03/11/17 03:51 03/11/17 03:51 Labs: Laboratory WBC 9.4 X10^3/uL (3.6-10.0) 03/11/17 03:51 RBC 3.25 X10^6/uL (4.7-6.0) L 03/11/17 03:51 Hgb 9.5 g/dL (13.5-18.0) L 03/11/17 03:51 Hct 27.8 % (42.0-54.0) L 03/11/17 03:51 MCV 85.5 fL (80.0-100.0) 03/11/17 03:51 MCH 29.1 pg (27.0-34.0) 03/11/17 03:51 MCHC 34.0 g/dL (33.0-35.0) 03/11/17 03:51 RDW 15.4 % (11.6-16.5) 03/11/17 03:51 Plt Count 226 X10^3/uL (150.0-450.0) 03/11/17 03:51 MPV 8.7 fL (7.4-11.0) 03/11/17 03:51 Neut % 66.6 % (42.0-75.0) 03/11/17 03:51 Lymph % 22.4 % (21.0-51.0) 03/11/17 03:51 [place] % 9.7 % (0.0-13.0) 03/11/17 03:51 Eos % 1.1 % (0.9-2.9) 03/11/17 03:51 Baso % 0.2 % (0.2-1.0) 03/11/17 03:51 Neut # 6.3 x10^3/uL (2.2-4.8) H 03/11/17 03:51 Lymph # 2.1 X10^3/uL (1.3-2.9) 03/11/17 03:51 [place] # 0.9 x10^3/uL (0.3-0.8) H 03/11/17 03:51 Eos # 0.1 x10^3/uL (0.0-0.2) 03/11/17 03:51 Baso # 0.0 X10^3/uL (0.0-0.1) 03/11/17 03:51 Absolute Nucleated RBC 0.0 /100WBC 03/11/17 03:51 Sample Site Right radial 03/08/17 16:19 ABG pH 7.550 (7.35-7.45) H 03/08/17 16:19 ABG pCO2 29.0 mmHg (35.0-45.0) L 03/08/17 16:19 ABG pO2 117.0 mmHg (80.0-100.0) H 03/08/17 16:19 ABG HCO3 25.4 mmol/L (22-26) 03/08/17 16:19 ABG O2 Saturation 99.0 % (90-100) 03/08/17 16:19 ABG Base Excess 3.6 mmol/L (-2.0-2.0) H 03/08/17 16:19 Evans Test Pos 03/08/17 16:19 A-a Gradient 46.0 mmHg 03/08/17 16:19 FiO2 28.000 03/08/17 16:19 Blood Gas Comments Mei well aw 03/08/17 16:19 Sodium 150 mmol/L (136-145) H* 03/11/17 03:51 Corrected Sodium TNP 03/11/17 03:51 Potassium 3.0 mmol/L (3.5-5.1) L* 03/11/17 03:51 Chloride 116 mmol/L (98-107) H* 03/11/17 03:51 Carbon Dioxide 27.1 mmol/L (21-32) 03/11/17 03:51 BUN 8 mg/dL (7-18) 03/11/17 03:51 Creatinine 0.52 mg/dL (0.70-1.30) L 03/11/17 03:51 Est GFR (MDRD) Af Amer > 60 (>60) 03/11/17 03:51 Est GFR (MDRD) Non-Af > 60 (>60) 03/11/17 03:51 Glucose 90 mg/dL (65-99) 03/11/17 03:51 Lactic Acid 0.9 mmol/L (0.4-2.0) 03/08/17 16:11 Calcium 7.4 mg/dL (8.5-10.1) L 03/11/17 03:51 Corrected Calcium 9.2 mg/dL (8.5-10.1) 03/11/17 03:51 Magnesium 1.6 mg/dL (1.7-2.9) L 03/11/17 03:51 Total Bilirubin 0.40 mg/dL (0.2-1.0) 03/11/17 03:51 AST 47 Units/L (15-37) H 03/11/17 03:51 ALT 54 Units/L (12-78) 03/11/17 03:51 Alkaline Phosphatase 199 Units/L (46-116) H 03/11/17 03:51 Creatine Kinase 281 Units/L (39-308) 03/09/17 05:00 CK-MB (CK-2) 2.9 ng/mL (0-4.0) 03/09/17 05:00 CK/CKMB % Calc 1.0 % (<4) 03/09/17 05:00 Troponin I < 0.02 ng/mL (0-1.5) 03/09/17 05:00 B-Natriuretic Peptide 49.8 pg/mL (0-79) 03/08/17 16:11 Total Protein 5.8 g/dL (6.4-8.2) L 03/11/17 03:51 Albumin 1.7 g/dL (3.4-5.0) L 03/11/17 03:51 Globulin 4.1 g/dL (2.5-4.5) 03/11/17 03:51 Albumin/Globulin Ratio 0.4 Ratio (1.1-2.1) L 03/11/17 03:51 Specimen Type Catherized urine 03/08/17 22:09 Urine Color Bloody (YELLOW) 03/08/17 22:09 Urine Appearance Turbid (CLEAR) 03/08/17 22:09 Urine pH 8.0 (5.0 - 8.0) 03/08/17 22:09 Ur Specific [place] 1.015 (1.000-1.030) 03/08/17 22:09 Urine Protein 4+ (NEGATIVE) 03/08/17 22:09 Urine Glucose (UA) Negative (NEGATIVE) 03/08/17 22:09 Urine Ketones Negative (NEGATIVE) 03/08/17 22:09 Urine Occult Blood 3+ (NEGATIVE) 03/08/17 22:09 Urine Nitrite Negative (NEGATIVE) 03/08/17 22:09 Urine Bilirubin 2+ (NEGATIVE) 03/08/17 22:09 Urine Urobilinogen Normal (NORMAL) 03/08/17 22:09 Ur Leukocyte Esterase Negative (NEGATIVE) 03/08/17 22:09 Urine RBC Tntc /HPF (NEGATIVE) 03/08/17 22:09 Urine WBC 0-3 /HPF (NEGATIVE) 03/08/17 22:09 Ur Squamous Epith Cells Rare /HPF (NEGATIVE) 03/08/17 22:09 Urine Bacteria Negative /HPF (NEGATIVE) 03/08/17 22:09 Ur Culture Indicated? No/not indicated 03/08/17 22:09 Vancomycin Trough 12.4 ug/mL (15-20) L 03/10/17 19:35
[2017-03-11] MEDS: K-RIDER 10 MEQ/NS 100 ML 10 MEQ/100 ML BAG IV PRN ×4 (12:30→17:29)
[2017-03-11] MEDS: ALBUMIN HUMAN 25%- 100ML 100 ML IV SCH (12:31)
[2017-03-11] MEDS: TYLENOL 325 MG TAB PO PRN (17:29)
[2017-03-11] MEDS: NS 1/2 1000 ML IV 1,000 ML with POTASSIUM CHLORIDE INJ 20 MEQ VIAL 20 MEQ IV SCH ×2 (17:30)
[2017-03-11] MEDS: COGENTIN TAB 1 MG PO SCH (21:04)
[2017-03-11] MEDS: ZyrTEC TAB 10 MG PO SCH (21:04)
[2017-03-12] MEDS ORDERED: NS 1/2 + KCL 20 MEQ/L 1,000 ML IV ONE ×2 (05:08→20:00)
[2017-03-12] MEDS: NS 1/2 1000 ML IV 1,000 ML with POTASSIUM CHLORIDE INJ 20 MEQ VIAL 20 MEQ IV SCH ×4 (05:17→20:22)
[2017-03-12 05:52] LABS: BASOPHILS % (AUTO) 0.2 % (0.2-1.0); EOSINOPHILS # (AUTO) 0.2 x10^3/uL (0.0-0.2); EOSINOPHILS % (AUTO) 2.9 % (0.9-2.9); HEMATOCRIT 26.9 % (42.0-54.0); HEMOGLOBIN 9.4 g/dL (13.5-18.0); LYMPHOCYTES # (AUTO) 2.2 X10^3/uL (1.3-2.9); LYMPHOCYTES % (AUTO) 27.7 % (21.0-51.0); MEAN CORPUSCULAR HEMOGLOBIN 29.8 pg (27.0-34.0); MEAN CORPUSCULAR VOLUME 85.2 fL (80.0-100.0); MEAN PLATELET VOLUME 8.7 fL (7.4-11.0); MONOCYTES # (AUTO) 0.8 x10^3/uL (0.3-0.8); NEUTROPHILS # (AUTO) 4.6 x10^3/uL (2.2-4.8); NEUTROPHILS % (AUTO) 59.2 % (42.0-75.0); PLATELET COUNT 232 X10^3/uL (150.0-450.0); RED BLOOD COUNT 3.15 X10^6/uL (4.7-6.0); RED CELL DISTRIBUTION WIDTH 15.8 % (11.6-16.5); WHITE BLOOD COUNT 7.8 X10^3/uL (3.6-10.0)
[2017-03-12 05:54] LABS: ALANINE AMINOTRANSFERASE 155 Units/L (12-78); ALKALINE PHOSPHATASE 349 Units/L (46-116); ASPARTATE AMINO TRANSFERASE 198 Units/L (15-37); BLOOD UREA NITROGEN 9 mg/dL (7-18); CALCIUM 7.3 mg/dL (8.5-10.1); CARBON DIOXIDE 25.9 mmol/L (21-32); COR CA(FOR HYPOALB) 8.9 mg/dL (8.5-10.1); CREATININE 0.53 mg/dL (0.70-1.30); GLUCOSE 88 mg/dL (65-99); MAGNESIUM 1.8 mg/dL (1.7-2.9); SODIUM 147 mmol/L (136-145); TOTAL PROTEIN 5.9 g/dL (6.4-8.2); eGFR BLACK RACES > 60 (>60); eGFR NON BLACK RACES > 60 (>60)
[2017-03-12 05:56] LABS: CHLORIDE 115 mmol/L (98-107)
--- NOTE | 2017-03-12 06:38 | RAD ---
HISTORY: Shortness of breath Study: Chest one view Comparison: March 08, 2017 Findings: The heart is enlarged. Pulmonary venous congestion is now present. The lungs appear free of acute in filtrates. There is elevation of the left hemidiaphragm. No definite pleural effusions are identifie d. The bony thorax is unremarkable. IMPRESSION: Cardiomegaly with interval development of pulmonary venous congestion Chronically elevated left hemidiaphragm Reported By:
[2017-03-12] MEDS: ALBUMIN HUMAN 25%- 100ML 100 ML IV SCH (08:24)
[2017-03-12] MEDS: VITAMIN B-6 PO SCH (08:24)
[2017-03-12] MEDS: KEPPRA TAB 500 MG PO SCH ×2 (08:25→20:26)
[2017-03-12] MEDS: FIBERCON PO SCH (08:25)
[2017-03-12] MEDS: SENOKOT PO SCH ×2 (08:25→20:26)
[2017-03-12] MEDS: VANCOMYCIN 1 GM PREMIX (ADDVANTAGE) 250 ML IV SCH ×2 (08:26→21:30)
--- NOTE | 2017-03-12 10:25 | PCM.PROG ---
Progress Note - Progress Note for Day of Date: 03/12/17 - Subjective Subjective: Patient is sitting up in bed upon morning rounds. He is much more alert today than yesterday. Patients sister is at bedside. Family doesnt express any concerns for patient at this time. On examination, lungs are noted to be clear on auscultation. Bowel sounds normal in all quadrants with no tenderness noted to abdomen. Vital signs this morning are 99.7, 88, 21, 100% RA , 126/65. Labs are normal with exception of RBC 3.15, HGB: 9.4, HCT: 26.9, SODIUM 147, POTASSIUM 3.6, CHLORIDE 116, CREATININE 0.53, CALCIUM 7.3, MAGNESIUM has increased from 1.6 to 1.8, AST has increased from 47 to 198, ALT has increased from 54 to 155. ALKALINE PHOS increased from 199 to 349, TOTAL PROTEIN 5.9, ALBUMIN 2.0. PSA and CEA are pending. A chest x-ray was obtained this morning and reports cardiomegaly with interval development of pulmonary venous congestion and chronically elevated left billie diaphragm. We will continue current plan of treatment and consult anesthesia for PICC line placement due to Vancomycin therapy at home. We will recheck labs and follow up with patient in am. - Past Medical Family Social History Past Med/Fam/Surg Hx: No changes since H&P Allergies: Allergies haloperidol [From Haldol] Allergy (Verified 03/08/17 18:41) - Review of Systems ROS: No change since H&P - Vital Signs and I&O's Vital Signs: Temperature 99.7 F Pulse Rate [Apical] 88 Respiratory Rate 21 Blood Pressure [Right Calf] 126/65 Blood Pressure [Right Arm] 103/56 O2 Sat by Pulse Oximetry 100 Intake and Output: Intake & Output 03/09/17 03/10/17 03/11/17 03/12/17 11:59 11:59 11:59 11:59 Intake Total 984 2813 Output Total 550 950 Balance 434 1863 - Physical Exam Oriented: Normal, Other (MR, at baseline normal ) Eyes: Normal Ear: Normal Nose: Normal Throat: Normal Respiratory: Normal Cardiovascular: Normal. negative: Tachycardia, Bradycardia, Irregular, S3, S4, Systolic, Diastolic, Murmur, Edema, Other : Normal. negative: Dysuria, Hematuria, Frequency, Discharge, Testicular Pain , Bleeding, , Other Auscultation: Bowel Sounds: Normal. negative: Bruit, Absent, Increased, Decreased, High Pitched, Other Palpation: Normal Tenderness: Normal Skin: Normal Musculoskeletal: Hip, Tender Psychiatric: Normal Mood Description: Calm Affect: Normal Speech Pattern: Aphasic - Laboratory and Diagnostics Result Diagrams: 03/12/17 04:35 03/12/17 04:35 Labs: Laboratory WBC 7.8 X10^3/uL (3.6-10.0) 03/12/17 04:35 RBC 3.15 X10^6/uL (4.7-6.0) L 03/12/17 04:35 Hgb 9.4 g/dL (13.5-18.0) L 03/12/17 04:35 Hct 26.9 % (42.0-54.0) L 03/12/17 04:35 MCV 85.2 fL (80.0-100.0) 03/12/17 04:35 MCH 29.8 pg (27.0-34.0) 03/12/17 04:35 MCHC 35.0 g/dL (33.0-35.0) 03/12/17 04:35 RDW 15.8 % (11.6-16.5) 03/12/17 04:35 Plt Count 232 X10^3/uL (150.0-450.0) 03/12/17 04:35 MPV 8.7 fL (7.4-11.0) 03/12/17 04:35 Neut % 59.2 % (42.0-75.0) 03/12/17 04:35 Lymph % 27.7 % (21.0-51.0) 03/12/17 04:35 [place] % 10.0 % (0.0-13.0) 03/12/17 04:35 Eos % 2.9 % (0.9-2.9) 03/12/17 04:35 Baso % 0.2 % (0.2-1.0) 03/12/17 04:35 Neut # 4.6 x10^3/uL (2.2-4.8) 03/12/17 04:35 Lymph # 2.2 X10^3/uL (1.3-2.9) 03/12/17 04:35 [place] # 0.8 x10^3/uL (0.3-0.8) 03/12/17 04:35 Eos # 0.2 x10^3/uL (0.0-0.2) 03/12/17 04:35 Baso # 0.0 X10^3/uL (0.0-0.1) 03/12/17 04:35 Absolute Nucleated RBC 0.2 /100WBC 03/12/17 04:35 Sample Site Right radial 03/08/17 16:19 ABG pH 7.550 (7.35-7.45) H 03/08/17 16:19 ABG pCO2 29.0 mmHg (35.0-45.0) L 03/08/17 16:19 ABG pO2 117.0 mmHg (80.0-100.0) H 03/08/17 16:19 ABG HCO3 25.4 mmol/L (22-26) 03/08/17 16:19 ABG O2 Saturation 99.0 % (90-100) 03/08/17 16:19 ABG Base Excess 3.6 mmol/L (-2.0-2.0) H 03/08/17 16:19 Evans Test Pos 03/08/17 16:19 A-a Gradient 46.0 mmHg 03/08/17 16:19 FiO2 28.000 03/08/17 16:19 Blood Gas Comments Mei well aw 03/08/17 16:19 Sodium 147 mmol/L (136-145) H 03/12/17 04:35 Corrected Sodium TNP 03/12/17 04:35 Potassium 3.6 mmol/L (3.5-5.1) 03/12/17 04:35 Chloride 115 mmol/L (98-107) H* 03/12/17 04:35 Carbon Dioxide 25.9 mmol/L (21-32) 03/12/17 04:35 BUN 9 mg/dL (7-18) 03/12/17 04:35 Creatinine 0.53 mg/dL (0.70-1.30) L 03/12/17 04:35 Est GFR (MDRD) Af Amer > 60 (>60) 03/12/17 04:35 Est GFR (MDRD) Non-Af > 60 (>60) 03/12/17 04:35 Glucose 88 mg/dL (65-99) 03/12/17 04:35 Lactic Acid 0.9 mmol/L (0.4-2.0) 03/08/17 16:11 Calcium 7.3 mg/dL (8.5-10.1) L 03/12/17 04:35 Corrected Calcium 8.9 mg/dL (8.5-10.1) 03/12/17 04:35 Magnesium 1.8 mg/dL (1.7-2.9) 03/12/17 04:35 Total Bilirubin 0.50 mg/dL (0.2-1.0) 03/12/17 04:35 AST 198 Units/L (15-37) H 03/12/17 04:35 ALT 155 Units/L (12-78) H 03/12/17 04:35 Alkaline Phosphatase 349 Units/L (46-116) H 03/12/17 04:35 Creatine Kinase 281 Units/L (39-308) 03/09/17 05:00 CK-MB (CK-2) 2.9 ng/mL (0-4.0) 03/09/17 05:00 CK/CKMB % Calc 1.0 % (<4) 03/09/17 05:00 Troponin I < 0.02 ng/mL (0-1.5) 03/09/17 05:00 C-Reactive Protein 91.30 mg/L (0-3.0) H 03/12/17 04:35 B-Natriuretic Peptide 49.8 pg/mL (0-79) 03/08/17 16:11 Total Protein 5.9 g/dL (6.4-8.2) L 03/12/17 04:35 Albumin 2.0 g/dL (3.4-5.0) L 03/12/17 04:35 Globulin 3.9 g/dL (2.5-4.5) 03/12/17 04:35 Albumin/Globulin Ratio 0.5 Ratio (1.1-2.1) L 03/12/17 04:35 Specimen Type Catherized urine 03/08/17 22:09 Urine Color Bloody (YELLOW) 03/08/17 22:09 Urine Appearance Turbid (CLEAR) 03/08/17 22:09 Urine pH 8.0 (5.0 - 8.0) 03/08/17 22:09 Ur Specific [place] 1.015 (1.000-1.030) 03/08/17 22:09 Urine Protein 4+ (NEGATIVE) 03/08/17 22:09 Urine Glucose (UA) Negative (NEGATIVE) 03/08/17 22:09 Urine Ketones Negative (NEGATIVE) 03/08/17 22:09 Urine Occult Blood 3+ (NEGATIVE) 03/08/17 22:09 Urine Nitrite Negative (NEGATIVE) 03/08/17 22:09 Urine Bilirubin 2+ (NEGATIVE) 03/08/17 22:09 Urine Urobilinogen Normal (NORMAL) 03/08/17 22:09 Ur Leukocyte Esterase Negative (NEGATIVE) 03/08/17 22:09 Urine RBC Tntc /HPF (NEGATIVE) 03/08/17 22:09 Urine WBC 0-3 /HPF (NEGATIVE) 03/08/17 22:09 Ur Squamous Epith Cells Rare /HPF (NEGATIVE) 03/08/17 22:09 Urine Bacteria Negative /HPF (NEGATIVE) 03/08/17 22:09 Ur Culture Indicated? No/not indicated 03/08/17 22:09 Vancomycin Trough 12.4 ug/mL (15-20) L 03/10/17 19:35 Random Vancomycin 15.9 ug/mL 03/12/17 04:35 - Plan (1) Dehydration Status: Acute Plan: NS with 20meq KCL, CHECK LABS IN AM (2) Hypotension Status: Acute Qualifiers: Hypotension type: unspecified hypotension type Trimester: T Qualified Code(s): I95.9 - Hypotension, unspecified Plan: IVF, CONTINUE TO MONITOR. (3) Respiratory distress Status: Acute Plan: CONTINUE TO MONITOR, CHECK CHEST XRAY IN AM (4) Mental retardation Status: Chronic (5) Mood disorder Status: Chronic Plan: CONTINUE HOME MEDS, MONITOR (6) Parkinson's disease Status: Chronic Plan: CONTINUE HOME MEDS, MONITOR (7) Seizure disorder Status: Chronic Plan: CONTINUE KEPPRA, MONITOR.
[2017-03-12] MEDS ORDERED: XYLOCAINE 1 % (PLAIN) ONE (13:31)
[2017-03-12] MEDS ORDERED: VERSED ONE (13:45)
[2017-03-12] MEDS ORDERED: VERSED IVP ONE (13:47)
--- NOTE | 2017-03-12 14:22 | DR.UPDATE ---
H&P Update History and Physical Update: History and Physical reviewed and patient examined. Changes noted: NO Yes with the following:Agree with PCP H&P. will proceed with picc line for long-term abx. Procedures (ALL) - Central Line Placement PCM.CLCO: written consent Time out performed: Yes Patient placed pm monitor/pulse ox: Yes prep: mask, gown, gloves, other Centrial line prep: chlorhexidine scrub Local anesthsia used: lidocane 1% Ultrasound used for placement: Yes Central line lumen ininserted: double (right cephalic picc line, trimmed to 47cm. 5cm exposed secondary to inability to thread further) Post procedure: good blood return, all ports aspirated, flushed,capped, sterile dressing applied Post procedure xray: other (portable cxr pending) Patient tolerated procedure: Yes Complications: none
--- NOTE | 2017-03-12 14:43 | RAD ---
HISTORY: PICC line placement. Study: Chest one view Comparison: March 12, 2017 at 6:27 a.m. Findings: Patient is rotated and shifted to the right. The cardiac silhouette is enlarged. There is a right-s ided PICC line catheter in place, the tip of which projects over the right atrium approximately 10.5 cm below the cavoatrial junction. Airspace opacity in the left lung base is again noted. The bony thorax is unremarkable. IMPRESSION: 1. PICC line tip identified approximately 10.5 cm below the level of the cavoatrial junction. Pleas e note that the accuracy of this measurement is somewhat in question due to patient rotation. A true frontal radiograph should be performed for a more accurate measurement. Reported By:
[2017-03-12] MEDS ORDERED: PHARMACY CONSULT - VANCOMYCIN XX SCH (15:00)
--- NOTE | 2017-03-12 18:51 | RAD ---
AP Chest Indication: PICC line placement Comparison: 03/12/2017 at 2:23 p.m. Findings: The right-sided PICC line has its tip terminating within the upper SVC. Dense consolidation within t he left lung base with increased central interstitial opacities and peribronchial thickening bilater ally appear similar to prior exam. Blunting of left costophrenic sulcus suspicious for a small left- sided pleural effusion. Impression: 1.Satisfactory positioning of the right PICC line. 2. Persistent dense consolidation within the left lung base and blunting of left costophrenic sulcus potentially represents developing infiltrate, atelectasis and or effusion. 3.Chronic interstitial lung changes appear similar prior examination potentially representing portal venous congestion versus bronchitis, clinical correlation is needed. Reported By:
[2017-03-12] MEDS: COGENTIN TAB 1 MG PO SCH (20:26)
[2017-03-12] MEDS: ZyrTEC TAB 10 MG PO SCH (20:26)
[2017-03-12 21:02] LABS: CREATININE 0.62 mg/dL (0.70-1.30); VANCOMYCIN,TROUGH 7.3 ug/mL (15-20)
[2017-03-13 05:39] LABS: BASOPHILS % (AUTO) 0.4 % (0.2-1.0); EOSINOPHILS # (AUTO) 0.2 x10^3/uL (0.0-0.2); EOSINOPHILS % (AUTO) 1.7 % (0.9-2.9); HEMATOCRIT 28.6 % (42.0-54.0); HEMOGLOBIN 9.7 g/dL (13.5-18.0); LYMPHOCYTES # (AUTO) 2.4 X10^3/uL (1.3-2.9); LYMPHOCYTES % (AUTO) 23.2 % (21.0-51.0); MEAN CORPUSCULAR HEMOGLOBIN 28.9 pg (27.0-34.0); MEAN CORPUSCULAR HGB CONC 33.7 g/dL (33.0-35.0); MEAN CORPUSCULAR VOLUME 85.7 fL (80.0-100.0); MEAN PLATELET VOLUME 8.8 fL (7.4-11.0); MONOCYTES % (AUTO) 9.5 % (0.0-13.0); NEUTROPHILS # (AUTO) 6.6 x10^3/uL (2.2-4.8); NEUTROPHILS % (AUTO) 65.2 % (42.0-75.0); PLATELET COUNT 285 X10^3/uL (150.0-450.0); RED BLOOD COUNT 3.34 X10^6/uL (4.7-6.0); RED CELL DISTRIBUTION WIDTH 15.7 % (11.6-16.5); WHITE BLOOD COUNT 10.2 X10^3/uL (3.6-10.0)
[2017-03-13 05:51] LABS: ALANINE AMINOTRANSFERASE 110 Units/L (12-78); ALBUMIN 2.3 g/dL (3.4-5.0); ALKALINE PHOSPHATASE 283 Units/L (46-116); ASPARTATE AMINO TRANSFERASE 77 Units/L (15-37); BLOOD UREA NITROGEN 8 mg/dL (7-18); CALCIUM 7.6 mg/dL (8.5-10.1); CARBON DIOXIDE 25.6 mmol/L (21-32); CHLORIDE 113 mmol/L (98-107); GLUCOSE 79 mg/dL (65-99); SODIUM 148 mmol/L (136-145); TOTAL PROTEIN 6.3 g/dL (6.4-8.2); eGFR BLACK RACES > 60 (>60); eGFR NON BLACK RACES > 60 (>60)
[2017-03-13 05:54] LABS: ERYTHROCYTE SEDIMENTATION RATE 28 MM/HOUR (0-15)
[2017-03-13 06:21] LABS: BAND NEUTROPHILS % 3 % (0-10); PLATELET MORPHOLOGY COMMENT NORMAL (NORMAL)
--- NOTE | 2017-03-13 07:57 | RAD ---
HISTORY: Shortness of breath Study: Chest one view Comparison: March 12, 2017 Findings: There is a right-sided PICC line with its tip in the superior vena cava. The heart is enlarged. Mild pulmonary venous congestion is present. The right lung and left upper lung yeboah are otherwise fredy ar. Dense left lower lobe consolidation is unchanged. The bony thorax is unremarkable. IMPRESSION: Cardiomegaly with mild pulmonary venous congestion. Left lower lobe consolidation unchanged Reported By:
[2017-03-13] MEDS: ALBUMIN HUMAN 25%- 100ML 100 ML IV SCH (08:14)
[2017-03-13] MEDS: VANCOMYCIN 1 GM PREMIX (ADDVANTAGE) 250 ML IV SCH (08:14)
[2017-03-13] MEDS: VITAMIN B-6 PO SCH (08:15)
[2017-03-13] MEDS: SENOKOT PO SCH (08:15)
[2017-03-13] MEDS: KEPPRA TAB 500 MG PO SCH (08:16)
[2017-03-13] MEDS: FIBERCON PO SCH (08:17)
[2017-03-13 12:18] VITALS: BP 130/38
--- NOTE | 2017-03-13 22:25 | DR.CARTERD ---
- Discharge Summary for: Discharge Summary for Date of:: 03/13/17 - Admission Date Date of Admission: 03/08/17 - Admission Diagnoses Admission Diagnosis: (1) Dehydration (2) Hypotension (3) Respiratory distress (4) Mental retardation (5) Mood disorder (6) Parkinson's disease (7) Seizure disorder - Discharge Date Discharge Date: 03/13/17 - Discharge Diagnoses Discharge Diagnosis: (1) MRSA Sepsis (2) Dehydration (3) Hypotension (4) Respiratory distress (5) Mental retardation (6) Mood disorder (7) Parkinson's disease (8) Seizure disorder - Hospital Course Hospital Course: MR. HUTCHINSON WHO IS A PATIENT OF OURS PRESENTED TO THE EMERGENCY ROOM ON March WITH REPORTS OF GENERALIZED WEAKNESS. PATIENT IS INTELLECTUALLY AND PHYSICALLY IMPAIRED AND IS CARED FOR AT HOME BY FAMILY MEMBERS. FAMILY MEMBERS VOICED CONCERNED OF GENERALIZED WEAKNESS AND RESPIRATORY DISTRESS AT HOME. PATIENT WAS NOTED AT THAT TIME TO BE MILDLY DEHYDRATED AND HYPOTENSIVE AND WAS ADMITTED TO HOSPITAL FOR FURTHER TREATMENT AND EVALUATION. BLOOD CULTURES WERE COLLECTED WHILE IN THE EMERGENCY ROOM DUE TO FEVER >103. AN ABDOMEN/PELVIS CT WAS OBTAINED DUE TO CHEST CTA THAT REPORTED A 4.4X3CM MASS IN THE PELVIS INVOLVING THE ILLIAC BONE. ABD/PELVIS CT REPORTED LEFT BASILAR ATELECTASIS, NUMEROUS HYPODENSITIES IN THE LIVER, LIVER CYST, GASTROENTERITIS/BOWEL WALL ENTERITIS. BOTH BLOOD CULTURES COLLECTED ON ADMISSION REPORTED MRSA. PATIENT CONTINUED ON VANCOMYCIN IV FOR TREATMENT AND RESPONDED WELL. PATIENT WAS NOTED TO BE AFEBRILE ON DAY FIVE OF ADMISSION. A CENTRAL LINE WAS PLACED FOR TWO ADDITIONAL WEEKS OF IV VANCOMYCIN FOR POSITIVE BLOOD CULTURES. WE PLANNED FOR DISCHARGE. INSTRUCTIONS FOR MEDICATIONS AND FOLLOW UP WERE GIVEN TO FAMILY. THEY VOICED UNDERSTANDING. PATIENT WAS DISCHARGED HOME IN STABLE CONDITION WITH FAMILY. - Discharge Medications Discharge Medications: Vancomycin HCl in Dextrose 5 % [Vancomycin Hydrochloride/ 1-5 gm/250Ml-%] 1 gm IV Q12H #28 inj 03/13/17 [Rx] Amitriptyline HCl 1 tab PO HS 02/06/17 Benztropine Mesylate [COGENTIN 1 MG TAB *] 1 tab PO HS 02/06/17 Cetirizine HCl 1 tab PO HS 02/06/17 Clonazepam 1 tab PO HS 02/06/17 Cyproheptadine HCl [PERIACTIN 4 MG TAB *] 1 tab PO TID 02/06/17 Levetiracetam [KEPPRA 500 MG *] 1 tab PO BID 02/06/17 Misc Home Med [Patient's Home Medication (Non-PO)] 1 tab PO DAILY 02/06/17 Misc Home Med [Patient's Home Medication (Non-PO)] 2 tab PO BID 02/06/17 Pyridoxine HCl (Vitamin B6) [Vitamin B-6] 50 mg PO DAILY 02/06/17 Quetiapine Fumarate [SEROQUEL 200 MG *] 2 tab PO HS 02/06/17 Vancomycin HCl in Dextrose 5 % [Vancomycin 1 Gram/250 ml-D5w] 1 gm IV Q12H # 28 inj 03/13/17 - Discharge Disposition Discharge Disposition: PATIENT IS TO FOLLOW UP IN OUR OFFICE ON MARCH 26, 2017.
[2017-03-16 06:18] LABS: PSA TOTAL 1.4 ng/mL (0.0-4.0)
== END 2017-03-13 13:05 | disposition home health service (06) | DRG 314 ==
LOC: ER 15:20 → ICU 20:48 → OBSVTOIN 03-10 14:00
PROVIDERS: ADMIT Internal Medicine; ATTEND Internal Medicine
PROC: 05HD33Z Insertion of Infusion Device into Right Cephalic Vein, Percutaneous Approach (ICD-10-PCS; principal; 2017-03-12)
DX: I95.89 Other hypotension (principal); A41.02 Sepsis due to Methicillin resistant Staphylococcus aureus; G40.802 Other epilepsy, not intractable, without status epilepticus; E86.0 Dehydration; R06.00 Dyspnea, unspecified; R06.02 Shortness of breath; R10.84 Generalized abdominal pain; R19.09 Other intra-abdominal and pelvic swelling, mass and lump; R50.9 Fever, unspecified; F78 Other intellectual disabilities; G20 Parkinson's disease
CPT/HCPCS: 36415; 36600; 71010; 71275; 74177; 80053; 80202; 81001; 82378; 82550; 82553; 82565; 82803; 83605; 83735; 83880; 84132; 84153; 84154; 84484; 85025; 85652; 86140; 87040; 87077; 87186; 93005; 93010; 96365; 96374; 99284; A4222; J7030; P9047; G0378; J0696; J2001; J2250; J3370; J3480

== ENCOUNTER 2017-04-28 11:55 | Inpatient (IN) | payer OTHER, MEDICAID ==
[2017-04-28] MEDS ORDERED: PHARMACY CONSULT - VANCOMYCIN XX SCH (13:48)
[2017-04-28] MEDS ORDERED: NS 1000 ML 1,000 ML IV ONE (13:48)
[2017-04-28 14:21] LABS: BASOPHILS # (AUTO) 0.1 X10^3/uL (0.0-0.1); BASOPHILS % (AUTO) 0.6 % (0.2-1.0); EOSINOPHILS % (AUTO) 0.2 % (0.9-2.9); HEMATOCRIT 35.4 % (42.0-54.0); HEMOGLOBIN 11.6 g/dL (13.5-18.0); LYMPHOCYTES # (AUTO) 0.7 X10^3/uL (1.3-2.9); LYMPHOCYTES % (AUTO) 6.2 % (21.0-51.0); MEAN CORPUSCULAR HEMOGLOBIN 27.1 pg (27.0-34.0); MEAN CORPUSCULAR HGB CONC 32.8 g/dL (33.0-35.0); MEAN CORPUSCULAR VOLUME 82.7 fL (80.0-100.0); MONOCYTES # (AUTO) 0.9 x10^3/uL (0.3-0.8); MONOCYTES % (AUTO) 8.3 % (0.0-13.0); NEUTROPHILS # (AUTO) 9.1 x10^3/uL (2.2-4.8); NEUTROPHILS % (AUTO) 84.7 % (42.0-75.0); PLATELET COUNT 241 X10^3/uL (150.0-450.0); RED BLOOD COUNT 4.28 X10^6/uL (4.7-6.0); RED CELL DISTRIBUTION WIDTH 17.7 % (11.6-16.5); WHITE BLOOD COUNT 10.8 X10^3/uL (3.6-10.0)
--- NOTE | 2017-04-28 14:31 | RAD ---
HISTORY: Sepsis, fever Study: Chest one view Comparison: March 13, 2017 Findings: The heart is enlarged. No congestive heart failure is noted. No acute alveolar infiltrates are ident ified. No pleural effusions are noted. The left hemidiaphragm is chronically elevated. The bony thor ax is unremarkable. IMPRESSION: Cardiomegaly without congestive heart failure No infiltrates Chronically elevated left hemidiaphragm Reported By:
[2017-04-28 14:40] LABS: ALANINE AMINOTRANSFERASE 43 Units/L (12-78); ALBUMIN 2.1 g/dL (3.4-5.0); ALKALINE PHOSPHATASE 256 Units/L (46-116); ASPARTATE AMINO TRANSFERASE 41 Units/L (15-37); BLOOD UREA NITROGEN 10 mg/dL (7-18); CARBON DIOXIDE 30.7 mmol/L (21-32); CHLORIDE 101 mmol/L (98-107); COR CA(FOR HYPOALB) 9.5 mg/dL (8.5-10.1); CREATININE 0.68 mg/dL (0.70-1.30); GLUCOSE 90 mg/dL (65-99); SODIUM 137 mmol/L (136-145); eGFR BLACK RACES > 60 (>60); eGFR NON BLACK RACES > 60 (>60)
[2017-04-28] MEDS: NS 1000 ML 1,000 ML IV SCH ×2 (14:43→22:30)
[2017-04-28] MEDS: FORTAZ or TAZICEF INJ 2 GM in NS 50 ML IV + SPIKE MINIBAG* 50 ML IV SCH ×3 (14:43→21:02)
[2017-04-28 14:44] LABS: LACTIC ACID 2.4 mmol/L (0.4-2.0)
[2017-04-28] MEDS: VANCOMYCIN 1 GM PREMIX (ADDVANTAGE) 250 ML IV SCH (14:45)
[2017-04-28 14:55] LABS: BILIRUBIN,URINE NEGATIVE (NEGATIVE); BLOOD/HEMOGLOBIN,URINE 2+ (NEGATIVE); GLUCOSE, URINE NEGATIVE (NEGATIVE); KETONES,URINE NEGATIVE (NEGATIVE); LEUKOCYTE ESTERASE ,URINE NEGATIVE (NEGATIVE); NITRITES,URINE NEGATIVE (NEGATIVE); PH,URINE 6.5 (5.0 - 8.0); PROTEIN,URINE 2+ (NEGATIVE); UROBILINOGEN,URINE NORMAL (NORMAL)
[2017-04-28 15:22] LABS: APPEARANCE,URINE HAZY (CLEAR); BACTERIA,URINE TRACE /HPF (NEGATIVE); COLOR,URINE YELLOW (YELLOW); RBC,URINE 0-2 /HPF (NEGATIVE); SQUAMOUS EPITHELIAL CELL,UR RARE /HPF (NEGATIVE)
[2017-04-28 15:38] VITALS: BMI 13.9
[2017-04-28] MEDS: BUTT CREAM (COMPOUND) TOP PRN (15:54)
--- NOTE | 2017-04-28 16:09 | DR.UPDATE ---
H&P Update History and Physical Update: PATIENT WAS SEEN IN THE OFFICE TODAY. A H&P WAS COMPLETED PRIOR TO ADMISSION. PATIENT HAS BEEN SEEN AND EXAMINED WITH NO CHANGES NOTED. Changes noted: NO Yes with the following:
[2017-04-28] MEDS: COLACE CAP 100 MG PO SCH (20:47)
[2017-04-28] MEDS: COGENTIN TAB 1 MG PO SCH (20:47)
[2017-04-28] MEDS: KLONOPIN TAB 1 MG PO SCH (20:47)
[2017-04-28] MEDS: ELAVIL PO SCH (20:47)
[2017-04-28] MEDS: KEPPRA TAB 500 MG PO SCH (20:47)
[2017-04-28] MEDS: MILK OF MAGNESIA PO SCH (20:48)
[2017-04-28] MEDS: TYLENOL 325 MG TAB PO PRN (20:48)
[2017-04-29] MEDS: NS 1000 ML 1,000 ML IV SCH ×4 (03:14→21:10)
[2017-04-29 04:51] LABS: BASOPHILS % (AUTO) 0.2 % (0.2-1.0); EOSINOPHILS % (AUTO) 0.1 % (0.9-2.9); HEMATOCRIT 28.1 % (42.0-54.0); HEMOGLOBIN 9.3 g/dL (13.5-18.0); LYMPHOCYTES # (AUTO) 1.2 X10^3/uL (1.3-2.9); LYMPHOCYTES % (AUTO) 14.7 % (21.0-51.0); MEAN CORPUSCULAR HEMOGLOBIN 27.6 pg (27.0-34.0); MEAN CORPUSCULAR HGB CONC 33.2 g/dL (33.0-35.0); MEAN CORPUSCULAR VOLUME 83.3 fL (80.0-100.0); MEAN PLATELET VOLUME 8.4 fL (7.4-11.0); MONOCYTES % (AUTO) 11.7 % (0.0-13.0); NEUTROPHILS # (AUTO) 6.2 x10^3/uL (2.2-4.8); NEUTROPHILS % (AUTO) 73.3 % (42.0-75.0); PLATELET COUNT 206 X10^3/uL (150.0-450.0); RED BLOOD COUNT 3.37 X10^6/uL (4.7-6.0); RED CELL DISTRIBUTION WIDTH 17.3 % (11.6-16.5); WHITE BLOOD COUNT 8.5 X10^3/uL (3.6-10.0)
[2017-04-29 04:53] LABS: LACTIC ACID 0.8 mmol/L (0.4-2.0)
[2017-04-29 05:17] LABS: ALANINE AMINOTRANSFERASE 29 Units/L (12-78); ALBUMIN 1.4 g/dL (3.4-5.0); ALKALINE PHOSPHATASE 184 Units/L (46-116); ASPARTATE AMINO TRANSFERASE 30 Units/L (15-37); BLOOD UREA NITROGEN 8 mg/dL (7-18); CALCIUM 6.9 mg/dL (8.5-10.1); CARBON DIOXIDE 30.3 mmol/L (21-32); CHLORIDE 110 mmol/L (98-107); GLUCOSE 72 mg/dL (65-99); SODIUM 145 mmol/L (136-145); TOTAL PROTEIN 5.1 g/dL (6.4-8.2); eGFR BLACK RACES > 60 (>60); eGFR NON BLACK RACES > 60 (>60)
[2017-04-29] MEDS ORDERED: POTASSIUM CHLORIDE LIQ 20 MEQ UDC PO PRN (05:39)
[2017-04-29] MEDS ORDERED: K-LYTE EFFERVESCENT PO PRN (05:39)
[2017-04-29] MEDS ORDERED: K-DUR TAB 20 MEQ PO PRN (05:39)
[2017-04-29] MEDS: FORTAZ or TAZICEF INJ 2 GM in NS 50 ML IV + SPIKE MINIBAG* 50 ML IV SCH ×3 (05:43→21:11)
[2017-04-29] MEDS: K-RIDER 10 MEQ/NS 100 ML 10 MEQ/100 ML BAG IV PRN ×6 (06:13→13:47)
[2017-04-29] MEDS: ALBUMIN HUMAN 25%- 100ML 200 ML IV SCH (09:05)
[2017-04-29] MEDS: VANCOMYCIN 1 GM PREMIX (ADDVANTAGE) 250 ML IV SCH ×2 (09:08→20:15)
[2017-04-29] MEDS: KEPPRA TAB 500 MG PO SCH ×2 (09:08→20:22)
[2017-04-29] MEDS: NS 500 ML IV 500 ML IV SCH (09:11)
[2017-04-29] MEDS ORDERED: PHARMACY CONSULT - TPN XX SCH (10:00)
[2017-04-29] MEDS ORDERED: HumuLIN R SUBCUT PRN (10:00)
[2017-04-29] MEDS: CLINIMIX 4.25 %/10 % 1,000 ML with MVI INJ (ADULT) 10 ML, TRACE ELEMENTS INJ 10 ML, POT... IV SCH ×10 (15:12→21:11)
[2017-04-29] MEDS ORDERED: NS 100 ML IV 0 ML IV ONE (15:16)
[2017-04-29] MEDS: TYLENOL SUPP 650 MG PR PRN (18:14)
[2017-04-29] MEDS: ZyrTEC TAB 10 MG PO SCH (20:22)
[2017-04-29] MEDS: ELAVIL PO SCH (20:22)
[2017-04-29] MEDS: MILK OF MAGNESIA PO SCH (20:22)
[2017-04-29] MEDS: KLONOPIN TAB 1 MG PO SCH (20:23)
[2017-04-29] MEDS: COGENTIN TAB 1 MG PO SCH (20:23)
[2017-04-29] MEDS: COLACE CAP 100 MG PO SCH (20:23)
[2017-04-29] MEDS: SENOKOT PO SCH (20:26)
--- NOTE | 2017-04-29 20:31 | PCM.PROG ---
Progress Note - Progress Note for Day of Date: 04/29/17 - Subjective Subjective: IS ALERT ON MORNING ROUNDS. HE IS LYING IN BED WITH HIS HYGIENE ASSISTANT AT BEDSIDE. HIS APPEARANCE IS BETTER THAN WHEN WE PREVIOUSLY SAW HIM. PATIENT'S HYGIENE ASSISTANT DOES NOT EXPRESS ANY CONCERNS UPON ROUNDS. VITALS THIS AM ARE 98.2-85-23-95%-84/53. STAFF REPORTS THAT PATIENT'S TEMERATURE DID REACHE 101.6 LAST NIGHT. CBC WNL EXCEPT RBC 3.37, HGB 9.3, HCT 28.1. CMP WNL EXCEPT POTASSIUM 2.6, CREATININE 0.60, CALCIUM 6.9, ALKALINE PHOSPHATASE 184, TOTAL PROTEIN 5.1, ALBUMIN 1.4. BLOOD CULTURES ARE PENDING. CHEST XRAY THAT WAS OBTAINED ON ADMISSION REPORTS CARDIOMEGALY WITHOUT CHF, NO INFILTRATES, AND CHRONICALLY ELEVATED HEMIDIAPHRAGM. WE WILL START TPN AND ALBUMIN. WE WILL CHECK KEPPRA LEVELS. WE PLAN TO RECHECK LABS AND XRAY AND FOLLOW UP WITH PATINT IN AM. - Past Medical Family Social History Past Med/Fam/Surg Hx: No changes since H&P Allergies: Allergies haloperidol [From Haldol] Allergy (Verified 03/08/17 18:41) - Review of Systems ROS: No change since H&P - Vital Signs and I&O's Vital Signs: Temperature 99.6 F Pulse Rate [Apical] 111 Respiratory Rate 24 Blood Pressure [Right Calf] 130/38 Blood Pressure [Right Arm] 114/67 Blood Pressure [Left Arm] 182/89 Blood Pressure 130/38 O2 Sat by Pulse Oximetry 100 Intake and Output: Intake & Output 04/27/17 04/28/17 04/29/17 04/30/17 11:59 11:59 11:59 11:59 Intake Total 3774 2036 Output Total 1600 325 Balance 2174 1711 - Physical Exam Oriented: Unable to test Eyes: Normal Ear: Normal Nose: Normal Throat: Normal Respiratory: Normal Cardiovascular: Normal : Normal Auscultation: Bowel Sounds: Normal Palpation: Normal Tenderness: Normal Skin: Normal Musculoskeletal: Normal Psychiatric: Normal Mood Description: Calm Affect: Normal Speech Pattern: Aphasic - Laboratory and Diagnostics Result Diagrams: 04/29/17 03:05 04/29/17 17:11 Labs: Laboratory WBC 8.5 X10^3/uL (3.6-10.0) 04/29/17 03:05 RBC 3.37 X10^6/uL (4.7-6.0) L 04/29/17 03:05 Hgb 9.3 g/dL (13.5-18.0) L D 04/29/17 03:05 Hct 28.1 % (42.0-54.0) L 04/29/17 03:05 MCV 83.3 fL (80.0-100.0) 04/29/17 03:05 MCH 27.6 pg (27.0-34.0) 04/29/17 03:05 MCHC 33.2 g/dL (33.0-35.0) 04/29/17 03:05 RDW 17.3 % (11.6-16.5) H 04/29/17 03:05 Plt Count 206 X10^3/uL (150.0-450.0) 04/29/17 03:05 MPV 8.4 fL (7.4-11.0) 04/29/17 03:05 Neut % 73.3 % (42.0-75.0) 04/29/17 03:05 Lymph % 14.7 % (21.0-51.0) L 04/29/17 03:05 [place] % 11.7 % (0.0-13.0) 04/29/17 03:05 Eos % 0.1 % (0.9-2.9) L 04/29/17 03:05 Baso % 0.2 % (0.2-1.0) 04/29/17 03:05 Neut # 6.2 x10^3/uL (2.2-4.8) H 04/29/17 03:05 Lymph # 1.2 X10^3/uL (1.3-2.9) L 04/29/17 03:05 [place] # 1.0 x10^3/uL (0.3-0.8) H 04/29/17 03:05 Eos # 0.0 x10^3/uL (0.0-0.2) 04/29/17 03:05 Baso # 0.0 X10^3/uL (0.0-0.1) 04/29/17 03:05 Absolute Nucleated RBC 0.1 /100WBC 04/29/17 03:05 Sodium 137 mmol/L (136-145) 04/28/17 14:10 Corrected Sodium TNP 04/28/17 14:10 Potassium 4.5 mmol/L (3.5-5.1) 04/29/17 17:11 Chloride 101 mmol/L (98-107) 04/28/17 14:10 Carbon Dioxide 30.7 mmol/L (21-32) 04/28/17 14:10 BUN 10 mg/dL (7-18) 04/28/17 14:10 Creatinine 0.68 mg/dL (0.70-1.30) L 04/28/17 14:10 Est GFR (MDRD) Af Amer > 60 (>60) 04/28/17 14:10 Est GFR (MDRD) Non-Af > 60 (>60) 04/28/17 14:10 Glucose 90 mg/dL (65-99) 04/28/17 14:10 Lactic Acid 2.4 mmol/L (0.4-2.0) H 04/28/17 14:10 Calcium 8.0 mg/dL (8.5-10.1) L 04/28/17 14:10 Corrected Calcium 9.5 mg/dL (8.5-10.1) 04/28/17 14:10 Magnesium 1.9 mg/dL (1.7-2.9) 04/29/17 03:05 Total Bilirubin 0.50 mg/dL (0.2-1.0) 04/28/17 14:10 AST 41 Units/L (15-37) H 04/28/17 14:10 ALT 43 Units/L (12-78) 04/28/17 14:10 Alkaline Phosphatase 256 Units/L (46-116) H 04/28/17 14:10 Total Protein 7.0 g/dL (6.4-8.2) 04/28/17 14:10 Albumin 2.1 g/dL (3.4-5.0) L 04/28/17 14:10 Globulin 4.9 g/dL (2.5-4.5) H 04/28/17 14:10 Albumin/Globulin Ratio 0.4 Ratio (1.1-2.1) L 04/28/17 14:10 Specimen Type Catherized urine 04/28/17 14:40 Urine Color Yellow (YELLOW) 04/28/17 14:40 Urine Appearance Hazy (CLEAR) 04/28/17 14:40 Urine pH 6.5 (5.0 - 8.0) 04/28/17 14:40 Ur Specific [place] 1.010 (1.000-1.030) 04/28/17 14:40 Urine Protein 2+ (NEGATIVE) 04/28/17 14:40 Urine Glucose (UA) Negative (NEGATIVE) 04/28/17 14:40 Urine Ketones Negative (NEGATIVE) 04/28/17 14:40 Urine Occult Blood 2+ (NEGATIVE) 04/28/17 14:40 Urine Nitrite Negative (NEGATIVE) 04/28/17 14:40 Urine Bilirubin Negative (NEGATIVE) 04/28/17 14:40 Urine Urobilinogen Normal (NORMAL) 04/28/17 14:40 Ur Leukocyte Esterase Negative (NEGATIVE) 04/28/17 14:40 Urine RBC 0-2 /HPF (NEGATIVE) 04/28/17 14:40 Urine WBC 3-5 /HPF (NEGATIVE) 04/28/17 14:40 Ur Squamous Epith Cells Rare /HPF (NEGATIVE) 04/28/17 14:40 Urine Bacteria Trace /HPF (NEGATIVE) 04/28/17 14:40 Ur Culture Indicated? No/not indicated 04/28/17 14:40 - Plan (1) Septic shock Status: Acute Plan: FORTAZ 2GM IV Q8H, VANCOMYCIN 1GM IV Q12H, CONTINUE TO MONITOR LABS AND VITALS (2) Fever Status: Acute Qualifiers: Fever type: unspecified Qualified Code(s): R50.9 - Fever, unspecified Plan: TYLENOL 650MG PO Q4H PRN, CHECK BLOOD CULTURES, CONTINUE TO MONITOR
[2017-04-29] MEDS ORDERED: [UNRECOGNIZED DRUG - OTHER] PO SCH (21:00)
[2017-04-29] MEDS: PERIACTIN TAB 4 MG PO SCH (21:09)
[2017-04-30] MEDS: CLINIMIX 4.25 %/10 % 1,000 ML with MVI INJ (ADULT) 10 ML, TRACE ELEMENTS INJ 10 ML, POT... IV SCH ×20 (02:38→21:06)
[2017-04-30] MEDS: NS 1000 ML 1,000 ML IV SCH ×3 (05:26→20:57)
[2017-04-30 06:03] LABS: ALANINE AMINOTRANSFERASE 39 Units/L (12-78); ALBUMIN 1.8 g/dL (3.4-5.0); ALKALINE PHOSPHATASE 205 Units/L (46-116); ASPARTATE AMINO TRANSFERASE 36 Units/L (15-37); BLOOD UREA NITROGEN 15 mg/dL (7-18); CALCIUM 7.4 mg/dL (8.5-10.1); CARBON DIOXIDE 30.1 mmol/L (21-32); CHLORIDE 109 mmol/L (98-107); COR CA(FOR HYPOALB) 9.2 mg/dL (8.5-10.1); CREATININE 0.59 mg/dL (0.70-1.30); GLUCOSE 108 mg/dL (65-99); SODIUM 143 mmol/L (136-145); TOTAL PROTEIN 5.4 g/dL (6.4-8.2); eGFR BLACK RACES > 60 (>60); eGFR NON BLACK RACES > 60 (>60)
[2017-04-30] MEDS: PERIACTIN TAB 4 MG PO SCH ×3 (06:06→21:06)
[2017-04-30] MEDS: FORTAZ or TAZICEF INJ 2 GM in NS 50 ML IV + SPIKE MINIBAG* 50 ML IV SCH ×3 (06:06→21:06)
[2017-04-30 06:15] LABS: BASOPHILS % (AUTO) 0.2 % (0.2-1.0); EOSINOPHILS # (AUTO) 0.1 x10^3/uL (0.0-0.2); EOSINOPHILS % (AUTO) 0.9 % (0.9-2.9); HEMATOCRIT 24.6 % (42.0-54.0); HEMOGLOBIN 8.3 g/dL (13.5-18.0); LYMPHOCYTES # (AUTO) 1.6 X10^3/uL (1.3-2.9); LYMPHOCYTES % (AUTO) 15.7 % (21.0-51.0); MEAN CORPUSCULAR HEMOGLOBIN 27.9 pg (27.0-34.0); MEAN CORPUSCULAR HGB CONC 33.7 g/dL (33.0-35.0); MEAN CORPUSCULAR VOLUME 82.7 fL (80.0-100.0); MEAN PLATELET VOLUME 8.1 fL (7.4-11.0); MONOCYTES # (AUTO) 0.9 x10^3/uL (0.3-0.8); MONOCYTES % (AUTO) 8.7 % (0.0-13.0); NEUTROPHILS # (AUTO) 7.8 x10^3/uL (2.2-4.8); NEUTROPHILS % (AUTO) 74.5 % (42.0-75.0); PLATELET COUNT 206 X10^3/uL (150.0-450.0); RED BLOOD COUNT 2.97 X10^6/uL (4.7-6.0); RED CELL DISTRIBUTION WIDTH 17.1 % (11.6-16.5); WHITE BLOOD COUNT 10.4 X10^3/uL (3.6-10.0)
--- NOTE | 2017-04-30 07:45 | RAD ---
HISTORY: Shortness of breath and sepsis Study: Single view of the chest. Comparison: 04/28/2017 Findings: Patient is significantly rotated which limits evaluation. No definite large consolidations. Osseous s tructures demonstrate no acute abnormality. IMPRESSION: 1. Markedly limited secondary to patient rotation. Not significantly changed from priors. Reported By:
[2017-04-30] MEDS: ALBUMIN HUMAN 25%- 100ML 200 ML IV SCH (08:28)
[2017-04-30] MEDS: SENOKOT PO SCH ×2 (08:32→20:43)
[2017-04-30] MEDS: KEPPRA TAB 500 MG PO SCH ×2 (08:32→20:41)
[2017-04-30 08:35] LABS: CREATININE 0.55 mg/dL (0.70-1.30)
[2017-04-30] MEDS: NS 500 ML IV 500 ML IV SCH (09:32)
[2017-04-30] MEDS: VANCOMYCIN 1 GM PREMIX (ADDVANTAGE) 250 ML IV SCH ×2 (09:32→20:57)
--- NOTE | 2017-04-30 13:10 | PCM.PROG ---
Progress Note - Progress Note for Day of Date: 04/30/17 - Subjective Subjective: IS ALERT ON MORNING ROUNDS. HE IS LYING IN BED WITH HIS TEXT TRANSCRIBER AT BEDSIDE. PATIENT'S TEXT TRANSCRIBER DOES NOT EXPRESS ANY CONCERNS UPON ROUNDS. SHE REPORTS THAT HE SEEMS TO BE FEELING BETTER. VITALS THIS AM ARE 98.8- 78-21-100%-103/64. CBC WNL EXCEPT WBC 10.4, RBC 2.97, HGB 8.3, HCT 24.6. CMP WNL EXCEPT CHLORIDE 109, CREATININE 0.59, GLUCOSE 108, CALCIUM 7.4, ALKALINE PHOSPHATASE 205, TOTAL PROTEIN 5.4, ALBUMIN 1.8. KEPPRA LEVELS ARE PENDING. PRELIMINARY BLOOD CULTURES REPORT GROWTH OF COAGULATE POSITIVE STAPH. HE IS ON VANCOMYCIN 1GM IV Q12H THAT SHOULD COVER THIS. CHEST XRAY REPORTS NO CHANGE FROM PREVIOUS READING. WE WILL CONTINUE WITH CURRENT PLAN OF CARE AND PLAN TO RECHECK LABS AND XRAY AND FOLLOW UP WITH PATINT IN AM. - Past Medical Family Social History Past Med/Fam/Surg Hx: No changes since H&P Allergies: Allergies haloperidol [From Haldol] Allergy (Verified 03/08/17 18:41) - Review of Systems ROS: No change since H&P - Vital Signs and I&O's Vital Signs: Temperature 100.7 F Pulse Rate [Apical] 100 Respiratory Rate 24 Blood Pressure [Right Calf] 130/38 Blood Pressure [Right Arm] 130/77 Blood Pressure [Left Arm] 182/89 Blood Pressure 130/38 O2 Sat by Pulse Oximetry 100 Intake and Output: Intake & Output 04/28/17 04/29/17 04/30/17 05/01/17 11:59 11:59 11:59 11:59 Intake Total 3774 4263 Output Total 1600 925 Balance 5647 5043 - Physical Exam Oriented: Unable to test Eyes: Normal Ear: Normal Nose: Normal Throat: Normal Respiratory: Normal Cardiovascular: Normal : Normal Auscultation: Bowel Sounds: Normal Palpation: Normal Tenderness: Normal Skin: Normal Musculoskeletal: Normal Psychiatric: Normal Mood Description: Calm Affect: Normal Speech Pattern: Aphasic - Laboratory and Diagnostics Result Diagrams: 04/30/17 04:40 04/30/17 08:16 Labs: 04/28/17 14:10 Blood Blood Culture - Preliminary 04/28/17 14:04 Blood Blood Culture - Preliminary Laboratory WBC 10.4 X10^3/uL (3.6-10.0) H 04/30/17 04:40 RBC 2.97 X10^6/uL (4.7-6.0) L 04/30/17 04:40 Hgb 8.3 g/dL (13.5-18.0) L 04/30/17 04:40 Hct 24.6 % (42.0-54.0) L 04/30/17 04:40 MCV 82.7 fL (80.0-100.0) 04/30/17 04:40 MCH 27.9 pg (27.0-34.0) 04/30/17 04:40 MCHC 33.7 g/dL (33.0-35.0) 04/30/17 04:40 RDW 17.1 % (11.6-16.5) H 04/30/17 04:40 Plt Count 206 X10^3/uL (150.0-450.0) 04/30/17 04:40 MPV 8.1 fL (7.4-11.0) 04/30/17 04:40 Neut % 74.5 % (42.0-75.0) 04/30/17 04:40 Lymph % 15.7 % (21.0-51.0) L 04/30/17 04:40 [place] % 8.7 % (0.0-13.0) 04/30/17 04:40 Eos % 0.9 % (0.9-2.9) 04/30/17 04:40 Baso % 0.2 % (0.2-1.0) 04/30/17 04:40 Neut # 7.8 x10^3/uL (2.2-4.8) H 04/30/17 04:40 Lymph # 1.6 X10^3/uL (1.3-2.9) 04/30/17 04:40 [place] # 0.9 x10^3/uL (0.3-0.8) H 04/30/17 04:40 Eos # 0.1 x10^3/uL (0.0-0.2) 04/30/17 04:40 Baso # 0.0 X10^3/uL (0.0-0.1) 04/30/17 04:40 Absolute Nucleated RBC 0.0 /100WBC 04/30/17 04:40 Sodium 143 mmol/L (136-145) 04/30/17 04:40 Corrected Sodium TNP 04/30/17 04:40 Potassium 3.7 mmol/L (3.5-5.1) 04/30/17 04:40 Chloride 109 mmol/L (98-107) H 04/30/17 04:40 Carbon Dioxide 30.1 mmol/L (21-32) 04/30/17 04:40 BUN 15 mg/dL (7-18) 04/30/17 04:40 Creatinine 0.55 mg/dL (0.70-1.30) L 04/30/17 08:16 Est GFR (MDRD) Af Amer > 60 (>60) 04/30/17 04:40 Est GFR (MDRD) Non-Af > 60 (>60) 04/30/17 04:40 Glucose 108 mg/dL (65-99) H 04/30/17 04:40 Lactic Acid 2.4 mmol/L (0.4-2.0) H 04/28/17 14:10 Calcium 7.4 mg/dL (8.5-10.1) L 04/30/17 04:40 Corrected Calcium 9.2 mg/dL (8.5-10.1) 04/30/17 04:40 Magnesium 1.9 mg/dL (1.7-2.9) 04/29/17 03:05 Total Bilirubin 0.30 mg/dL (0.2-1.0) 04/30/17 04:40 AST 36 Units/L (15-37) 04/30/17 04:40 ALT 39 Units/L (12-78) 04/30/17 04:40 Alkaline Phosphatase 205 Units/L (46-116) H 04/30/17 04:40 Total Protein 5.4 g/dL (6.4-8.2) L 04/30/17 04:40 Albumin 1.8 g/dL (3.4-5.0) L 04/30/17 04:40 Globulin 3.6 g/dL (2.5-4.5) 04/30/17 04:40 Albumin/Globulin Ratio 0.5 Ratio (1.1-2.1) L 04/30/17 04:40 Specimen Type Catherized urine 04/28/17 14:40 Urine Color Yellow (YELLOW) 04/28/17 14:40 Urine Appearance Hazy (CLEAR) 04/28/17 14:40 Urine pH 6.5 (5.0 - 8.0) 04/28/17 14:40 Ur Specific [place] 1.010 (1.000-1.030) 04/28/17 14:40 Urine Protein 2+ (NEGATIVE) 04/28/17 14:40 Urine Glucose (UA) Negative (NEGATIVE) 04/28/17 14:40 Urine Ketones Negative (NEGATIVE) 04/28/17 14:40 Urine Occult Blood 2+ (NEGATIVE) 04/28/17 14:40 Urine Nitrite Negative (NEGATIVE) 04/28/17 14:40 Urine Bilirubin Negative (NEGATIVE) 04/28/17 14:40 Urine Urobilinogen Normal (NORMAL) 04/28/17 14:40 Ur Leukocyte Esterase Negative (NEGATIVE) 04/28/17 14:40 Urine RBC 0-2 /HPF (NEGATIVE) 04/28/17 14:40 Urine WBC 3-5 /HPF (NEGATIVE) 04/28/17 14:40 Ur Squamous Epith Cells Rare /HPF (NEGATIVE) 04/28/17 14:40 Urine Bacteria Trace /HPF (NEGATIVE) 04/28/17 14:40 Ur Culture Indicated? No/not indicated 04/28/17 14:40 Vancomycin Trough 11.0 ug/mL (15-20) L 04/30/17 08:16 - Plan (1) Septic shock Status: Acute Plan: FORTAZ 2GM IV Q8H, VANCOMYCIN 1GM IV Q12H, CONTINUE TO MONITOR LABS AND VITALS (2) Fever Status: Acute Qualifiers: Fever type: unspecified Qualified Code(s): R50.9 - Fever, unspecified Plan: TYLENOL 650MG PO Q4H PRN, CHECK BLOOD CULTURES, CONTINUE TO MONITOR
[2017-04-30] MEDS: TYLENOL SUPP 650 MG PR PRN ×2 (13:27→23:35)
[2017-04-30] MEDS: TORADOL 15 MG VIAL IVP PRN ×2 (15:36→22:50)
[2017-04-30] MEDS: COLACE CAP 100 MG PO SCH (20:41)
[2017-04-30] MEDS: KLONOPIN TAB 1 MG PO SCH (20:41)
[2017-04-30] MEDS: ZyrTEC TAB 10 MG PO SCH (20:42)
[2017-04-30] MEDS: ELAVIL PO SCH (20:42)
[2017-04-30] MEDS: MILK OF MAGNESIA PO SCH (20:43)
[2017-04-30] MEDS: COGENTIN TAB 1 MG PO SCH (20:43)
[2017-05-01] MEDS: CLINIMIX 4.25 %/10 % 1,000 ML with MVI INJ (ADULT) 10 ML, TRACE ELEMENTS INJ 10 ML, POT... IV SCH ×20 (03:22→21:16)
[2017-05-01 04:54] LABS: ALANINE AMINOTRANSFERASE 37 Units/L (12-78); ALBUMIN 2.2 g/dL (3.4-5.0); ALKALINE PHOSPHATASE 214 Units/L (46-116); ASPARTATE AMINO TRANSFERASE 34 Units/L (15-37); BLOOD UREA NITROGEN 19 mg/dL (7-18); CALCIUM 7.6 mg/dL (8.5-10.1); CARBON DIOXIDE 28.4 mmol/L (21-32); CHLORIDE 107 mmol/L (98-107); CREATININE 0.51 mg/dL (0.70-1.30); GLUCOSE 84 mg/dL (65-99); SODIUM 140 mmol/L (136-145); TOTAL PROTEIN 5.9 g/dL (6.4-8.2); eGFR BLACK RACES > 60 (>60); eGFR NON BLACK RACES > 60 (>60)
[2017-05-01 05:03] LABS: BASOPHILS % (AUTO) 0.2 % (0.2-1.0); EOSINOPHILS # (AUTO) 0.1 x10^3/uL (0.0-0.2); EOSINOPHILS % (AUTO) 0.7 % (0.9-2.9); HEMATOCRIT 25.3 % (42.0-54.0); HEMOGLOBIN 8.4 g/dL (13.5-18.0); LYMPHOCYTES # (AUTO) 1.7 X10^3/uL (1.3-2.9); LYMPHOCYTES % (AUTO) 15.4 % (21.0-51.0); MEAN CORPUSCULAR HEMOGLOBIN 27.3 pg (27.0-34.0); MEAN CORPUSCULAR HGB CONC 33.2 g/dL (33.0-35.0); MEAN CORPUSCULAR VOLUME 82.2 fL (80.0-100.0); MEAN PLATELET VOLUME 8.1 fL (7.4-11.0); MONOCYTES # (AUTO) 0.9 x10^3/uL (0.3-0.8); MONOCYTES % (AUTO) 7.8 % (0.0-13.0); NEUTROPHILS # (AUTO) 8.6 x10^3/uL (2.2-4.8); NEUTROPHILS % (AUTO) 75.9 % (42.0-75.0); PLATELET COUNT 240 X10^3/uL (150.0-450.0); RED BLOOD COUNT 3.08 X10^6/uL (4.7-6.0); RED CELL DISTRIBUTION WIDTH 17.6 % (11.6-16.5); WHITE BLOOD COUNT 11.3 X10^3/uL (3.6-10.0)
[2017-05-01] MEDS: PERIACTIN TAB 4 MG PO SCH ×3 (05:18→21:34)
[2017-05-01] MEDS: NS 1000 ML 1,000 ML IV SCH ×3 (05:23→22:10)
[2017-05-01] MEDS: FORTAZ or TAZICEF INJ 2 GM in NS 50 ML IV + SPIKE MINIBAG* 50 ML IV SCH ×3 (05:23→21:33)
--- NOTE | 2017-05-01 08:00 | RAD ---
HISTORY: Sepsis Study: AP portable chest Comparison: April 30, 2017 Findings: The patient is rotated to the right. Positioning is less than optimal as the patient's chin obscures the right lung apex. The heart remains enlarged. No congestive heart failure is noted. Subsegmental a telectasis is present in the right lung base. The un obscured area of the right upper lobe is clear a s is the left upper lobe. Infiltrate is now identified in the left lower lobe suggestive of pneumonia . No definite pleural effusions are identified. The bony thorax is unremarkable. IMPRESSION: Limited examination for the reason noted above. Cardiomegaly without congestive heart failure Now visualized is left lower lobe infiltrate suggestive of pneumonia. Subsegmental atelectasis right lung base Reported By:
[2017-05-01] MEDS: VANCOMYCIN 1 GM PREMIX (ADDVANTAGE) 250 ML IV SCH ×2 (09:45→21:33)
[2017-05-01] MEDS: KEPPRA TAB 500 MG PO SCH ×2 (09:45→21:33)
[2017-05-01] MEDS: SENOKOT PO SCH ×2 (09:45→21:33)
[2017-05-01] MEDS: ALBUMIN HUMAN 25%- 100ML 200 ML IV SCH (09:46)
--- NOTE | 2017-05-01 10:32 | PCM.PROG ---
Progress Note - Progress Note for Day of Date: 05/01/17 - Subjective Subjective: IS ALERT, LYING IN BED ON MORNING ROUNDS. VITALS THIS AM ARE 98.7-26-96%-88-143/53. CBC WNL EXCEPT WBC 11.3, RBC 3.08, HGB 8.4, HCT 25.3. CMP WNL EXCEPT BUN 19, CREATININE 0.51, CALCIUM 7.6, ALK PHOS 214, TOTAL PROTEIN 5.9, ALBUMIN 2.2. KEPPRA LEVELS ARE PENDING. FINAL BLOOD CULTURES GREW MRSA. HE IS SENSITIVE TO VANCOMYCIN. WE WILL CONTINUE ON VANCOMYCIN 1GM IV Q12H. WE WILL CONTINUE WITH CURRENT PLAN OF CARE AND PLAN TO RECHECK LABS AND XRAY AND FOLLOW UP WITH PATINT IN AM. - Past Medical Family Social History Past Med/Fam/Surg Hx: No changes since H&P Allergies: Allergies haloperidol [From Haldol] Allergy (Verified 03/08/17 18:41) - Review of Systems ROS: No change since H&P - Vital Signs and I&O's Vital Signs: Temperature 98.7 F Pulse Rate [Apical] 88 Respiratory Rate 26 Blood Pressure [Right Calf] 143/53 Blood Pressure [Right Arm] 127/57 Blood Pressure [Left Arm] 182/89 Blood Pressure 130/38 O2 Sat by Pulse Oximetry 96 Intake and Output: Intake & Output 04/28/17 04/29/17 04/30/17 05/01/17 11:59 11:59 11:59 11:59 Intake Total 3774 4263 4913 Output Total 8597 435 7276 Balance 2174 6394 4048 - Physical Exam Oriented: Unable to test Eyes: Normal Ear: Normal Nose: Normal Throat: Normal Respiratory: Normal Cardiovascular: Normal : Normal Auscultation: Bowel Sounds: Normal Tenderness: Normal Skin: Normal Musculoskeletal: Normal Psychiatric: Normal Mood Description: Calm Affect: Normal Speech Pattern: Aphasic - Laboratory and Diagnostics Result Diagrams: 05/01/17 03:55 05/01/17 03:55 Labs: 04/28/17 14:10 Blood Blood Culture - Final Methicillin Resis Staph Aureus 04/28/17 14:04 Blood Blood Culture - Final Methicillin Resis Staph Aureus Laboratory WBC 11.3 X10^3/uL (3.6-10.0) H 05/01/17 03:55 RBC 3.08 X10^6/uL (4.7-6.0) L 05/01/17 03:55 Hgb 8.4 g/dL (13.5-18.0) L 05/01/17 03:55 Hct 25.3 % (42.0-54.0) L 05/01/17 03:55 MCV 82.2 fL (80.0-100.0) 05/01/17 03:55 MCH 27.3 pg (27.0-34.0) 05/01/17 03:55 MCHC 33.2 g/dL (33.0-35.0) 05/01/17 03:55 RDW 17.6 % (11.6-16.5) H 05/01/17 03:55 Plt Count 240 X10^3/uL (150.0-450.0) 05/01/17 03:55 MPV 8.1 fL (7.4-11.0) 05/01/17 03:55 Neut % 75.9 % (42.0-75.0) H 05/01/17 03:55 Lymph % 15.4 % (21.0-51.0) L 05/01/17 03:55 [place] % 7.8 % (0.0-13.0) 05/01/17 03:55 Eos % 0.7 % (0.9-2.9) L 05/01/17 03:55 Baso % 0.2 % (0.2-1.0) 05/01/17 03:55 Neut # 8.6 x10^3/uL (2.2-4.8) H 05/01/17 03:55 Lymph # 1.7 X10^3/uL (1.3-2.9) 05/01/17 03:55 [place] # 0.9 x10^3/uL (0.3-0.8) H 05/01/17 03:55 Eos # 0.1 x10^3/uL (0.0-0.2) 05/01/17 03:55 Baso # 0.0 X10^3/uL (0.0-0.1) 05/01/17 03:55 Absolute Nucleated RBC 0.0 /100WBC 05/01/17 03:55 Sodium 140 mmol/L (136-145) 05/01/17 03:55 Corrected Sodium TNP 05/01/17 03:55 Potassium 3.8 mmol/L (3.5-5.1) 05/01/17 03:55 Chloride 107 mmol/L (98-107) 05/01/17 03:55 Carbon Dioxide 28.4 mmol/L (21-32) 05/01/17 03:55 BUN 19 mg/dL (7-18) H 05/01/17 03:55 Creatinine 0.51 mg/dL (0.70-1.30) L 05/01/17 03:55 Est GFR (MDRD) Af Amer > 60 (>60) 05/01/17 03:55 Est GFR (MDRD) Non-Af > 60 (>60) 05/01/17 03:55 Glucose 84 mg/dL (65-99) 05/01/17 03:55 Lactic Acid 2.4 mmol/L (0.4-2.0) H 04/28/17 14:10 Calcium 7.6 mg/dL (8.5-10.1) L 05/01/17 03:55 Corrected Calcium 9.0 mg/dL (8.5-10.1) 05/01/17 03:55 Magnesium 1.9 mg/dL (1.7-2.9) 04/29/17 03:05 Total Bilirubin 0.50 mg/dL (0.2-1.0) 05/01/17 03:55 AST 34 Units/L (15-37) 05/01/17 03:55 ALT 37 Units/L (12-78) 05/01/17 03:55 Alkaline Phosphatase 214 Units/L (46-116) H 05/01/17 03:55 Total Protein 5.9 g/dL (6.4-8.2) L 05/01/17 03:55 Albumin 2.2 g/dL (3.4-5.0) L 05/01/17 03:55 Globulin 3.7 g/dL (2.5-4.5) 05/01/17 03:55 Albumin/Globulin Ratio 0.6 Ratio (1.1-2.1) L 05/01/17 03:55 Specimen Type Catherized urine 04/28/17 14:40 Urine Color Yellow (YELLOW) 04/28/17 14:40 Urine Appearance Hazy (CLEAR) 04/28/17 14:40 Urine pH 6.5 (5.0 - 8.0) 04/28/17 14:40 Ur Specific [place] 1.010 (1.000-1.030) 04/28/17 14:40 Urine Protein 2+ (NEGATIVE) 04/28/17 14:40 Urine Glucose (UA) Negative (NEGATIVE) 04/28/17 14:40 Urine Ketones Negative (NEGATIVE) 04/28/17 14:40 Urine Occult Blood 2+ (NEGATIVE) 04/28/17 14:40 Urine Nitrite Negative (NEGATIVE) 04/28/17 14:40 Urine Bilirubin Negative (NEGATIVE) 04/28/17 14:40 Urine Urobilinogen Normal (NORMAL) 04/28/17 14:40 Ur Leukocyte Esterase Negative (NEGATIVE) 04/28/17 14:40 Urine RBC 0-2 /HPF (NEGATIVE) 04/28/17 14:40 Urine WBC 3-5 /HPF (NEGATIVE) 04/28/17 14:40 Ur Squamous Epith Cells Rare /HPF (NEGATIVE) 04/28/17 14:40 Urine Bacteria Trace /HPF (NEGATIVE) 04/28/17 14:40 Ur Culture Indicated? No/not indicated 04/28/17 14:40 Vancomycin Trough 11.0 ug/mL (15-20) L 04/30/17 08:16 - Plan (1) Septic shock Status: Acute Plan: FORTAZ 2GM IV Q8H, VANCOMYCIN 1GM IV Q12H, CONTINUE TO MONITOR LABS AND VITALS (2) MRSA (methicillin resistant Staphylococcus aureus) Status: Acute Plan: CONTINUE VANCOMYCIN 1GM IV Q12H, CONTINUE TO MONITOR (3) Fever Status: Acute Qualifiers: Fever type: unspecified Qualified Code(s): R50.9 - Fever, unspecified Plan: TYLENOL 650MG PO Q4H PRN, CHECK BLOOD CULTURES, CONTINUE TO MONITOR
[2017-05-01] MEDS: NS 500 ML IV 500 ML IV SCH (12:02)
[2017-05-01] MEDS: MILK OF MAGNESIA PO SCH (21:31)
[2017-05-01] MEDS: ELAVIL PO SCH (21:32)
[2017-05-01] MEDS: ZyrTEC TAB 10 MG PO SCH (21:32)
[2017-05-01] MEDS: COGENTIN TAB 1 MG PO SCH (21:32)
[2017-05-01] MEDS: KLONOPIN TAB 1 MG PO SCH (21:33)
[2017-05-01] MEDS: COLACE CAP 100 MG PO SCH (21:33)
[2017-05-02] MEDS: CLINIMIX 4.25 %/10 % 1,000 ML with MVI INJ (ADULT) 10 ML, TRACE ELEMENTS INJ 10 ML, POT... IV SCH ×10 (04:03→14:27)
[2017-05-02] MEDS: NS 1000 ML 1,000 ML IV SCH (04:52)
[2017-05-02] MEDS: FORTAZ or TAZICEF INJ 2 GM in NS 50 ML IV + SPIKE MINIBAG* 50 ML IV SCH ×3 (05:03→22:38)
[2017-05-02] MEDS: PERIACTIN TAB 4 MG PO SCH ×4 (05:03→21:06)
[2017-05-02 05:11] LABS: BASOPHILS % (AUTO) 0.2 % (0.2-1.0); EOSINOPHILS # (AUTO) 0.1 x10^3/uL (0.0-0.2); EOSINOPHILS % (AUTO) 1.1 % (0.9-2.9); HEMATOCRIT 25.7 % (42.0-54.0); HEMOGLOBIN 8.4 g/dL (13.5-18.0); LYMPHOCYTES % (AUTO) 17.9 % (21.0-51.0); MEAN CORPUSCULAR HGB CONC 32.6 g/dL (33.0-35.0); MEAN CORPUSCULAR VOLUME 82.7 fL (80.0-100.0); MEAN PLATELET VOLUME 7.8 fL (7.4-11.0); MONOCYTES # (AUTO) 1.1 x10^3/uL (0.3-0.8); MONOCYTES % (AUTO) 9.6 % (0.0-13.0); NEUTROPHILS # (AUTO) 8.1 x10^3/uL (2.2-4.8); NEUTROPHILS % (AUTO) 71.2 % (42.0-75.0); PLATELET COUNT 258 X10^3/uL (150.0-450.0); RED BLOOD COUNT 3.11 X10^6/uL (4.7-6.0); RED CELL DISTRIBUTION WIDTH 17.7 % (11.6-16.5); WHITE BLOOD COUNT 11.4 X10^3/uL (3.6-10.0)
[2017-05-02 05:43] LABS: ALANINE AMINOTRANSFERASE 44 Units/L (12-78); ALBUMIN 2.2 g/dL (3.4-5.0); ALKALINE PHOSPHATASE 216 Units/L (46-116); ASPARTATE AMINO TRANSFERASE 44 Units/L (15-37); BLOOD UREA NITROGEN 20 mg/dL (7-18); CALCIUM 7.9 mg/dL (8.5-10.1); CARBON DIOXIDE 26.8 mmol/L (21-32); CHLORIDE 105 mmol/L (98-107); COR CA(FOR HYPOALB) 9.3 mg/dL (8.5-10.1); CREATININE 0.48 mg/dL (0.70-1.30); GLUCOSE 105 mg/dL (65-99); SODIUM 138 mmol/L (136-145); TOTAL PROTEIN 5.9 g/dL (6.4-8.2); eGFR BLACK RACES > 60 (>60); eGFR NON BLACK RACES > 60 (>60)
--- NOTE | 2017-05-02 07:12 | RAD ---
Chest, one view Indication: Shortness of breath Comparison: 05/01/2017 Findings: Cardiac silhouette enlargement is unchanged. There is slightly worsened opacity of the left lower lung with increased airspace disease of the right lung base. There are increased interstitial markings suggestive for mild pulmonary edema. Probable small right pleural effusion. No evidence for pneumothorax. Impression: Slightly worsened left lung base airspace disease and developing right lung base infiltrates suggesti ng multifocal pneumonia. Stable cardiomegaly with mild edema. Reported By:
[2017-05-02 08:12] LABS: CREATININE 0.51 mg/dL (0.70-1.30); VANCOMYCIN,TROUGH 15.7 ug/mL (15-20)
[2017-05-02] MEDS: SENOKOT PO SCH ×2 (08:18→21:05)
[2017-05-02] MEDS: ALBUMIN HUMAN 25%- 100ML 200 ML IV SCH (08:19)
[2017-05-02] MEDS: KEPPRA TAB 500 MG PO SCH ×2 (08:19→21:04)
[2017-05-02] MEDS: VANCOMYCIN 1 GM PREMIX (ADDVANTAGE) 250 ML IV SCH ×2 (09:36→21:04)
[2017-05-02] MEDS: NS 500 ML IV 500 ML IV SCH (11:03)
[2017-05-02] MEDS: TORADOL 15 MG VIAL IVP PRN (11:52)
[2017-05-02] MEDS: NORCO 5/325 MG TAB PO PRN (12:51)
[2017-05-02] MEDS ORDERED: ACCUNEB 1.25 MG NEBULE NEB PRN (13:30)
[2017-05-02] MEDS ORDERED: ACCUNEB 1.25 MG NEBULE NEB SCH (13:30)
[2017-05-02] MEDS: ACCUNEB 1.25 MG NEBULE NEB SCH (17:30)
[2017-05-02] MEDS: COGENTIN TAB 1 MG PO SCH (21:03)
[2017-05-02] MEDS: COLACE CAP 100 MG PO SCH (21:03)
[2017-05-02] MEDS: MILK OF MAGNESIA PO SCH (21:04)
[2017-05-02] MEDS: KLONOPIN TAB 1 MG PO SCH (21:04)
[2017-05-02] MEDS: ELAVIL PO SCH (21:04)
[2017-05-02] MEDS: ZyrTEC TAB 10 MG PO SCH (21:06)
[2017-05-03] MEDS: NS 1000 ML 1,000 ML IV SCH ×3 (02:45→09:13)
[2017-05-03] MEDS: BUTT CREAM (COMPOUND) TOP PRN ×3 (02:47→16:20)
[2017-05-03 06:15] LABS: BASOPHILS % (AUTO) 0.2 % (0.2-1.0); EOSINOPHILS # (AUTO) 0.2 x10^3/uL (0.0-0.2); EOSINOPHILS % (AUTO) 1.7 % (0.9-2.9); HEMOGLOBIN 8.4 g/dL (13.5-18.0); LYMPHOCYTES # (AUTO) 1.5 X10^3/uL (1.3-2.9); LYMPHOCYTES % (AUTO) 13.7 % (21.0-51.0); MEAN CORPUSCULAR HEMOGLOBIN 27.5 pg (27.0-34.0); MEAN CORPUSCULAR HGB CONC 33.7 g/dL (33.0-35.0); MEAN CORPUSCULAR VOLUME 81.7 fL (80.0-100.0); MEAN PLATELET VOLUME 7.5 fL (7.4-11.0); MONOCYTES # (AUTO) 0.9 x10^3/uL (0.3-0.8); MONOCYTES % (AUTO) 8.9 % (0.0-13.0); NEUTROPHILS % (AUTO) 75.5 % (42.0-75.0); PLATELET COUNT 297 X10^3/uL (150.0-450.0); RED BLOOD COUNT 3.06 X10^6/uL (4.7-6.0); RED CELL DISTRIBUTION WIDTH 17.9 % (11.6-16.5); WHITE BLOOD COUNT 10.6 X10^3/uL (3.6-10.0)
[2017-05-03 06:22] LABS: ALANINE AMINOTRANSFERASE 97 Units/L (12-78); ALBUMIN 2.4 g/dL (3.4-5.0); ALKALINE PHOSPHATASE 239 Units/L (46-116); ASPARTATE AMINO TRANSFERASE 103 Units/L (15-37); BLOOD UREA NITROGEN 18 mg/dL (7-18); CALCIUM 8.1 mg/dL (8.5-10.1); CARBON DIOXIDE 28.4 mmol/L (21-32); CHLORIDE 105 mmol/L (98-107); COR CA(FOR HYPOALB) 9.4 mg/dL (8.5-10.1); CREATININE 0.43 mg/dL (0.70-1.30); GLUCOSE 86 mg/dL (65-99); SODIUM 138 mmol/L (136-145); TOTAL PROTEIN 6.1 g/dL (6.4-8.2); eGFR BLACK RACES > 60 (>60); eGFR NON BLACK RACES > 60 (>60)
[2017-05-03] MEDS: FORTAZ or TAZICEF INJ 2 GM in NS 50 ML IV + SPIKE MINIBAG* 50 ML IV SCH ×2 (06:26→21:05)
[2017-05-03] MEDS: PERIACTIN TAB 4 MG PO SCH ×2 (06:28→20:59)
[2017-05-03] MEDS: ACCUNEB 1.25 MG NEBULE NEB SCH (09:01)
[2017-05-03] MEDS: CLINIMIX 4.25 %/10 % 1,000 ML with MVI INJ (ADULT) 10 ML, TRACE ELEMENTS INJ 10 ML, POT... IV SCH ×15 (09:12→21:05)
[2017-05-03] MEDS: VANCOMYCIN 1 GM PREMIX (ADDVANTAGE) 250 ML IV SCH ×2 (09:13→21:04)
[2017-05-03] MEDS: SENOKOT PO SCH ×2 (09:13→21:06)
[2017-05-03] MEDS: ALBUMIN HUMAN 25%- 100ML 200 ML IV SCH (09:13)
[2017-05-03] MEDS: KEPPRA TAB 500 MG PO SCH ×2 (09:14→20:59)
[2017-05-03 20:42] LABS: CREATININE 0.5 mg/dL (0.70-1.30); VANCOMYCIN,TROUGH 11.8 ug/mL (15-20)
[2017-05-03] MEDS: COLACE CAP 100 MG PO SCH (20:58)
[2017-05-03] MEDS: ELAVIL PO SCH (20:59)
[2017-05-03] MEDS: KLONOPIN TAB 1 MG PO SCH (20:59)
[2017-05-03] MEDS: TYLENOL 325 MG TAB PO PRN (21:00)
[2017-05-03] MEDS: ZyrTEC TAB 10 MG PO SCH (21:00)
[2017-05-03] MEDS: COGENTIN TAB 1 MG PO SCH (21:03)
[2017-05-03] MEDS: MILK OF MAGNESIA PO SCH (21:05)
[2017-05-04] MEDS: NS 1000 ML 1,000 ML IV SCH ×6 (02:25→21:44)
[2017-05-04] MEDS: PERIACTIN TAB 4 MG PO SCH ×4 (05:44→21:44)
[2017-05-04] MEDS: FORTAZ or TAZICEF INJ 2 GM in NS 50 ML IV + SPIKE MINIBAG* 50 ML IV SCH ×2 (05:44→08:50)
--- NOTE | 2017-05-04 06:40 | RAD ---
HISTORY: Shortness of breath, sepsis Study: AP portable chest Comparison: May 02, 2017 Findings: Positioning is less than optimal with the patient's chin obscuring the medial lung apices bilaterally . The heart remains enlarged. No congestive heart failure is noted. There has been improvement in the bilateral lower lobe infiltrates being followed. The right upper lung field is clear. There is now s ome infiltrate in the left upper lobe. The bony thorax is unremarkable. IMPRESSION: Improving bilateral lower lobe infiltrates Left upper lobe infiltrate Cardiomegaly without congestive heart failure Reported By:
[2017-05-04 07:05] LABS: ALANINE AMINOTRANSFERASE 82 Units/L (12-78); ALBUMIN 2.6 g/dL (3.4-5.0); ALKALINE PHOSPHATASE 206 Units/L (46-116); ASPARTATE AMINO TRANSFERASE 65 Units/L (15-37); BLOOD UREA NITROGEN 14 mg/dL (7-18); CARBON DIOXIDE 29.7 mmol/L (21-32); CHLORIDE 111 mmol/L (98-107); COR CA(FOR HYPOALB) 9.1 mg/dL (8.5-10.1); CREATININE 0.66 mg/dL (0.70-1.30); GLUCOSE 96 mg/dL (65-99); SODIUM 147 mmol/L (136-145); TOTAL PROTEIN 6.9 g/dL (6.4-8.2); eGFR BLACK RACES > 60 (>60); eGFR NON BLACK RACES > 60 (>60)
[2017-05-04] MEDS ORDERED: PHARMACY CONSULT - VANCOMYCIN XX SCH (07:30)
[2017-05-04 07:31] LABS: BASOPHILS % (AUTO) 0.3 % (0.2-1.0); EOSINOPHILS # (AUTO) 0.1 x10^3/uL (0.0-0.2); EOSINOPHILS % (AUTO) 1.5 % (0.9-2.9); HEMATOCRIT 25.6 % (42.0-54.0); HEMOGLOBIN 8.6 g/dL (13.5-18.0); LYMPHOCYTES # (AUTO) 1.6 X10^3/uL (1.3-2.9); LYMPHOCYTES % (AUTO) 18.7 % (21.0-51.0); MEAN CORPUSCULAR HEMOGLOBIN 27.7 pg (27.0-34.0); MEAN CORPUSCULAR HGB CONC 33.6 g/dL (33.0-35.0); MEAN CORPUSCULAR VOLUME 82.4 fL (80.0-100.0); MEAN PLATELET VOLUME 7.7 fL (7.4-11.0); MONOCYTES # (AUTO) 0.8 x10^3/uL (0.3-0.8); MONOCYTES % (AUTO) 9.6 % (0.0-13.0); NEUTROPHILS % (AUTO) 69.9 % (42.0-75.0); PLATELET COUNT 290 X10^3/uL (150.0-450.0); RED BLOOD COUNT 3.11 X10^6/uL (4.7-6.0); RED CELL DISTRIBUTION WIDTH 17.6 % (11.6-16.5); WHITE BLOOD COUNT 8.6 X10^3/uL (3.6-10.0)
[2017-05-04] MEDS: NS 500 ML IV 500 ML IV SCH ×2 (08:50→12:48)
[2017-05-04] MEDS: ALBUMIN HUMAN 25%- 100ML 200 ML IV SCH (08:52)
[2017-05-04] MEDS: KEPPRA TAB 500 MG PO SCH ×2 (08:52→20:09)
[2017-05-04] MEDS: SENOKOT PO SCH ×2 (08:53→20:14)
[2017-05-04] MEDS: VANCOMYCIN 1 GM PREMIX (ADDVANTAGE) 250 ML IV SCH (08:53)
--- NOTE | 2017-05-04 08:53 | PCM.PROG ---
Progress Note - Progress Note for Day of Date: 05/04/17 - Subjective Subjective: WAS ADMITTED ON 04/28. HE IS BEING TREATED FOR SEPTIC SHOCK, FEVER, AND MRSA IN BLOOD CULTURES. HE IS LYING IN BED WITH EYES OPEN ON MORNING ROUNDS. PATIENT'S CAREGIVER IS AT BEDSIDE. NURSE IS IN ROOM FEEDING PATIENT BREAKFAST. HE APPEARS TO BE MORE ALERT THAN WHEN WE LAST SAW HIM. VITALS THIS AM ARE 97.9-71-21-100%-139/55. WBC WNL, IT HAS BEEN ELEVATED. RBC 3.11, HGB 8.6, HCT 25.6. CMP WNL EXCEPT SODIUM 147, CHLORIDE 111, CREATININE 0.66, CALCIUM 8.0, AST 65, ALT 82, ALKALINE PHOSPHATASE 206, ALBUMIN 2.6. CHEST XRAY REPORTS IMPROVING BILATERAL LOWER LOBE INFILTRATES, LEFT UPPER LOBE INFILTRATE, AND CARDIOMEGALY WITHOUT CHF. WE WILL DISCUSS ANTIBIOTIC THERAPY WITH PHARMACY AND OBTAIN THEIR RECOMMENDATIONS. WE WILL CONTINUE TO TRY TO OBATAIN A SPUTUM CULTURE. WE PLAN TO RECHECK LABS AND FOLLOW UP WITH PATIENT IN AM. - Past Medical Family Social History Past Med/Fam/Surg Hx: No changes since H&P Allergies: Allergies haloperidol [From Haldol] Allergy (Verified 03/08/17 18:41) - Review of Systems ROS: No change since H&P - Vital Signs and I&O's Vital Signs: Temperature 97.9 F Pulse Rate [Apical] 71 Pulse Rate 92 Respiratory Rate 21 Blood Pressure [Right Calf] 139/55 Blood Pressure [Right Arm] 127/57 Blood Pressure [Left Arm] 182/89 Blood Pressure 130/38 O2 Sat by Pulse Oximetry 100 Intake and Output: Intake & Output 05/01/17 05/02/17 05/03/17 05/04/17 11:59 11:59 11:59 11:59 Intake Total 4913 5155 4921 3691 Output Total 1725 1900 1300 5100 Balance 3185 7042 7928 -3018 - Physical Exam Oriented: Unable to test Eyes: Normal Ear: Normal Nose: Normal Throat: Normal Respiratory: Normal Cardiovascular: Normal : Normal Auscultation: Bowel Sounds: Normal Palpation: Normal Tenderness: Normal Skin: Normal Musculoskeletal: Normal Psychiatric: Normal Mood Description: Calm Affect: Normal Speech Pattern: Aphasic - Laboratory and Diagnostics Result Diagrams: 05/04/17 06:30 05/04/17 06:30 Labs: 04/28/17 14:10 Blood Blood Culture - Final Methicillin Resis Staph Aureus 04/28/17 14:04 Blood Blood Culture - Final Methicillin Resis Staph Aureus Laboratory WBC 8.6 X10^3/uL (3.6-10.0) 05/04/17 06:30 RBC 3.11 X10^6/uL (4.7-6.0) L 05/04/17 06:30 Hgb 8.6 g/dL (13.5-18.0) L 05/04/17 06:30 Hct 25.6 % (42.0-54.0) L 05/04/17 06:30 MCV 82.4 fL (80.0-100.0) 05/04/17 06:30 MCH 27.7 pg (27.0-34.0) 05/04/17 06:30 MCHC 33.6 g/dL (33.0-35.0) 05/04/17 06:30 RDW 17.6 % (11.6-16.5) H 05/04/17 06:30 Plt Count 290 X10^3/uL (150.0-450.0) 05/04/17 06:30 MPV 7.7 fL (7.4-11.0) 05/04/17 06:30 Neut % 69.9 % (42.0-75.0) 05/04/17 06:30 Lymph % 18.7 % (21.0-51.0) L 05/04/17 06:30 [place] % 9.6 % (0.0-13.0) 05/04/17 06:30 Eos % 1.5 % (0.9-2.9) 05/04/17 06:30 Baso % 0.3 % (0.2-1.0) 05/04/17 06:30 Neut # 6.0 x10^3/uL (2.2-4.8) H 05/04/17 06:30 Lymph # 1.6 X10^3/uL (1.3-2.9) 05/04/17 06:30 [place] # 0.8 x10^3/uL (0.3-0.8) 05/04/17 06:30 Eos # 0.1 x10^3/uL (0.0-0.2) 05/04/17 06:30 Baso # 0.0 X10^3/uL (0.0-0.1) 05/04/17 06:30 Absolute Nucleated RBC 0.1 /100WBC 05/04/17 06:30 Sodium 147 mmol/L (136-145) H 05/04/17 06:30 Corrected Sodium TNP 05/04/17 06:30 Potassium 3.8 mmol/L (3.5-5.1) 05/04/17 06:30 Chloride 111 mmol/L (98-107) H 05/04/17 06:30 Carbon Dioxide 29.7 mmol/L (21-32) 05/04/17 06:30 BUN 14 mg/dL (7-18) 05/04/17 06:30 Creatinine 0.66 mg/dL (0.70-1.30) L 05/04/17 06:30 Est GFR (MDRD) Af Amer > 60 (>60) 05/04/17 06:30 Est GFR (MDRD) Non-Af > 60 (>60) 05/04/17 06:30 Glucose 96 mg/dL (65-99) 05/04/17 06:30 Lactic Acid 2.4 mmol/L (0.4-2.0) H 04/28/17 14:10 Calcium 8.0 mg/dL (8.5-10.1) L 05/04/17 06:30 Corrected Calcium 9.1 mg/dL (8.5-10.1) 05/04/17 06:30 Magnesium 1.9 mg/dL (1.7-2.9) 04/29/17 03:05 Total Bilirubin 0.60 mg/dL (0.2-1.0) 05/04/17 06:30 AST 65 Units/L (15-37) H 05/04/17 06:30 ALT 82 Units/L (12-78) H 05/04/17 06:30 Alkaline Phosphatase 206 Units/L (46-116) H 05/04/17 06:30 Total Protein 6.9 g/dL (6.4-8.2) 05/04/17 06:30 Albumin 2.6 g/dL (3.4-5.0) L 05/04/17 06:30 Globulin 4.3 g/dL (2.5-4.5) 05/04/17 06:30 Albumin/Globulin Ratio 0.6 Ratio (1.1-2.1) L 05/04/17 06:30 Specimen Type Catherized urine 04/28/17 14:40 Urine Color Yellow (YELLOW) 04/28/17 14:40 Urine Appearance Hazy (CLEAR) 04/28/17 14:40 Urine pH 6.5 (5.0 - 8.0) 04/28/17 14:40 Ur Specific [place] 1.010 (1.000-1.030) 04/28/17 14:40 Urine Protein 2+ (NEGATIVE) 04/28/17 14:40 Urine Glucose (UA) Negative (NEGATIVE) 04/28/17 14:40 Urine Ketones Negative (NEGATIVE) 04/28/17 14:40 Urine Occult Blood 2+ (NEGATIVE) 04/28/17 14:40 Urine Nitrite Negative (NEGATIVE) 04/28/17 14:40 Urine Bilirubin Negative (NEGATIVE) 04/28/17 14:40 Urine Urobilinogen Normal (NORMAL) 04/28/17 14:40 Ur Leukocyte Esterase Negative (NEGATIVE) 04/28/17 14:40 Urine RBC 0-2 /HPF (NEGATIVE) 04/28/17 14:40 Urine WBC 3-5 /HPF (NEGATIVE) 04/28/17 14:40 Ur Squamous Epith Cells Rare /HPF (NEGATIVE) 04/28/17 14:40 Urine Bacteria Trace /HPF (NEGATIVE) 04/28/17 14:40 Ur Culture Indicated? No/not indicated 04/28/17 14:40 Vancomycin Trough 11.8 ug/mL (15-20) L 05/03/17 20:23 Levetiracetam 25 ug/mL (12-46) 04/29/17 09:53 - Plan (1) Septic shock Status: Acute Plan: FORTAZ 2GM IV Q8H, VANCOMYCIN 1GM IV Q12H, CONTINUE TO MONITOR LABS AND VITALS (2) MRSA (methicillin resistant Staphylococcus aureus) Status: Acute Plan: CONTINUE VANCOMYCIN 1GM IV Q12H, CONTINUE TO MONITOR (3) Fever Status: Acute Qualifiers: Fever type: unspecified Qualified Code(s): R50.9 - Fever, unspecified Plan: TYLENOL 650MG PO Q4H PRN, CHECK BLOOD CULTURES, CONTINUE TO MONITOR (4) Hypoalbuminemia Status: Acute Plan: ALBUMIN DAILY, TPN, CONTINUE TO MONITOR (5) Hypokalemia Status: Acute Plan: POTASSIUM SUPPLEMENTS, CONTINUE TO MONITOR (6) History of seizure disorder Status: Chronic Plan: CONTINUE KEPPRA, CONTINUE TO MONITOR
[2017-05-04] MEDS: TEFLARO 600 MG in NS 50 ML IV + SPIKE MINIBAG* 50 ML IV SCH ×2 (10:07→20:08)
[2017-05-04] MEDS: CLINIMIX 4.25 %/10 % 1,000 ML with MVI INJ (ADULT) 10 ML, TRACE ELEMENTS INJ 10 ML, POT... IV SCH ×5 (10:10)
[2017-05-04] MEDS: SNACK - Diabetic Appropriate PO SCH ×2 (12:48→20:39)
[2017-05-04] MEDS: TYLENOL 325 MG TAB PO PRN (16:26)
[2017-05-04] MEDS: COGENTIN TAB 1 MG PO SCH (20:09)
[2017-05-04] MEDS: ZyrTEC TAB 10 MG PO SCH (20:09)
[2017-05-04] MEDS: BACTRIM DS TAB PO SCH (20:09)
[2017-05-04] MEDS: KLONOPIN TAB 1 MG PO SCH (20:09)
[2017-05-04] MEDS: COLACE CAP 100 MG PO SCH (20:09)
[2017-05-04] MEDS: ELAVIL PO SCH (20:09)
[2017-05-04] MEDS: MILK OF MAGNESIA PO SCH (20:10)
[2017-05-05 05:23] LABS: BASOPHILS # (AUTO) 0.1 X10^3/uL (0.0-0.1); BASOPHILS % (AUTO) 0.6 % (0.2-1.0); EOSINOPHILS # (AUTO) 0.1 x10^3/uL (0.0-0.2); EOSINOPHILS % (AUTO) 1.5 % (0.9-2.9); HEMATOCRIT 26.6 % (42.0-54.0); HEMOGLOBIN 8.8 g/dL (13.5-18.0); LYMPHOCYTES # (AUTO) 2.1 X10^3/uL (1.3-2.9); LYMPHOCYTES % (AUTO) 25.4 % (21.0-51.0); MEAN CORPUSCULAR HEMOGLOBIN 27.2 pg (27.0-34.0); MEAN CORPUSCULAR HGB CONC 33.1 g/dL (33.0-35.0); MEAN CORPUSCULAR VOLUME 82.1 fL (80.0-100.0); MEAN PLATELET VOLUME 7.7 fL (7.4-11.0); MONOCYTES # (AUTO) 0.7 x10^3/uL (0.3-0.8); MONOCYTES % (AUTO) 8.1 % (0.0-13.0); NEUTROPHILS # (AUTO) 5.4 x10^3/uL (2.2-4.8); NEUTROPHILS % (AUTO) 64.4 % (42.0-75.0); PLATELET COUNT 323 X10^3/uL (150.0-450.0); RED BLOOD COUNT 3.24 X10^6/uL (4.7-6.0); RED CELL DISTRIBUTION WIDTH 17.6 % (11.6-16.5); WHITE BLOOD COUNT 8.4 X10^3/uL (3.6-10.0)
[2017-05-05 05:44] LABS: ALANINE AMINOTRANSFERASE 88 Units/L (12-78); ALKALINE PHOSPHATASE 210 Units/L (46-116); ASPARTATE AMINO TRANSFERASE 66 Units/L (15-37); BLOOD UREA NITROGEN 12 mg/dL (7-18); CALCIUM 8.6 mg/dL (8.5-10.1); CARBON DIOXIDE 28.4 mmol/L (21-32); CHLORIDE 108 mmol/L (98-107); COR CA(FOR HYPOALB) 9.4 mg/dL (8.5-10.1); CREATININE 0.49 mg/dL (0.70-1.30); GLUCOSE 82 mg/dL (65-99); SODIUM 144 mmol/L (136-145); TOTAL PROTEIN 6.6 g/dL (6.4-8.2); eGFR BLACK RACES > 60 (>60); eGFR NON BLACK RACES > 60 (>60)
[2017-05-05] MEDS: NS 1000 ML 1,000 ML IV SCH ×4 (05:52→22:44)
[2017-05-05] MEDS: PERIACTIN TAB 4 MG PO SCH ×3 (05:53→21:03)
--- NOTE | 2017-05-05 06:11 | RAD ---
HISTORY: Sepsis Study: AP portable chest Comparison: May 04, 2017 Findings: The patient is rotated to the right. The heart is enlarged. No definite congestive heart failure is n oted. Continued improvement is noted in the right lower lobe infiltrate being followed. The right upp er lung field is clear. Left upper lung field is clear. No chain identified in the left lower lobe in filtrate being followed. No pleural effusions are identified. The bony thorax is unremarkable. IMPRESSION: Cardiomegaly without congestive heart failure Continued improvement right lower lobe infiltrate Improvement left upper lobe infiltrate No change left lower lobe infiltrate Reported By:
[2017-05-05] MEDS: BACTRIM DS TAB PO SCH ×2 (07:59→21:02)
[2017-05-05] MEDS: KEPPRA TAB 500 MG PO SCH ×2 (07:59→21:02)
[2017-05-05] MEDS: TEFLARO 600 MG in NS 50 ML IV + SPIKE MINIBAG* 50 ML IV SCH ×2 (08:00→21:04)
[2017-05-05] MEDS: ALBUMIN HUMAN 25%- 100ML 200 ML IV SCH (08:00)
[2017-05-05] MEDS: SENOKOT PO SCH ×2 (08:00→21:02)
[2017-05-05] MEDS: CLINIMIX 4.25 %/10 % 1,000 ML with MVI INJ (ADULT) 10 ML, TRACE ELEMENTS INJ 10 ML, POT... IV SCH ×15 (09:44→22:22)
[2017-05-05] MEDS: NS 500 ML IV 500 ML IV SCH (09:44)
--- NOTE | 2017-05-05 11:24 | PCM.PROG ---
Progress Note - Progress Note for Day of Date: 05/05/17 - Subjective Subjective: IS BEING TREATED FOR SEPTIC SHOCK, FEVER, AND MRSA IN BLOOD CULTURES. HE IS LYING IN BED WITH EYES OPEN ON MORNING ROUNDS. PATIENT'S CAREGIVER IS AT BEDSIDE FEEDING PATIENT BREAKFAST. VITALS THIS AM ARE 99.1-89-27 -100%-125/58. CBC WNL EXCEPT RBC 3.24, HGB 8.8, HCT 26.6. CMP WNL EXCEPT CHLORIDE 108, CREATININE 0.49, CALCIUM 8.6, AST 66, ALT 88, ALKALINE PHOSPHATASE 210, ALBUMIN 3.0. CHEST XRAY REPORTS CARDIOMEGALY WITHOUT CHF, CONTINUED IMPROVEMENT RLL INFILTRATE, IMPROVEMENT LINDSEY INFILTRATE, NO CHANGE LLL INFILTRATE. WE DISCUSSED ANTIBIOTICS WITH PHARMACY. WE DISCONTINUED FORTAZ AND LEVAQUIN AND STARTED PATIENT ON TEFLARO 600MG IV Q12H AND BACTRIM DS 1 TAB BID. A SPUTUM CULTURE WAS OBTAINED. PRELIMINARY RESULTS REPORT GRAM NEGATIVE RODS AND STAPHS WITH SCANT NORMAL MALINDA AT DAY 1. WE PLAN TO RECHECK LABS AND FOLLOW UP WITH PATIENT IN AM. - Past Medical Family Social History Past Med/Fam/Surg Hx: No changes since H&P Allergies: Allergies haloperidol [From Haldol] Allergy (Verified 03/08/17 18:41) - Review of Systems ROS: No change since H&P - Vital Signs and I&O's Vital Signs: Temperature 99.1 F Pulse Rate [Apical] 89 Pulse Rate 92 Respiratory Rate 27 Blood Pressure [Right Calf] 125/58 Blood Pressure [Right Arm] 127/57 Blood Pressure [Left Arm] 182/89 Blood Pressure 130/38 O2 Sat by Pulse Oximetry 100 Intake and Output: Intake & Output 05/02/17 05/03/17 05/04/17 05/05/17 11:59 11:59 11:59 11:59 Intake Total 5155 4921 3691 3494 Output Total 1900 1300 5100 1900 Balance 3255 3621 -8545 1594 - Physical Exam Oriented: Unable to test Eyes: Normal Ear: Normal Nose: Normal Throat: Normal Respiratory: Normal Cardiovascular: Normal : Normal Auscultation: Bowel Sounds: Normal Palpation: Normal Tenderness: Normal Skin: Normal Musculoskeletal: Normal Psychiatric: Normal Mood Description: Calm Affect: Normal Speech Pattern: Aphasic - Laboratory and Diagnostics Result Diagrams: 05/05/17 05:11 05/05/17 05:11 Labs: 05/04/17 10:23 Sputum - Expectorated Sputum Sputum Culture - Preliminary 05/04/17 10:23 Sputum - Expectorated Sputum - Final 04/28/17 14:10 Blood Blood Culture - Final Methicillin Resis Staph Aureus 04/28/17 14:04 Blood Blood Culture - Final Methicillin Resis Staph Aureus Laboratory WBC 8.4 X10^3/uL (3.6-10.0) 05/05/17 05:11 RBC 3.24 X10^6/uL (4.7-6.0) L 05/05/17 05:11 Hgb 8.8 g/dL (13.5-18.0) L 05/05/17 05:11 Hct 26.6 % (42.0-54.0) L 05/05/17 05:11 MCV 82.1 fL (80.0-100.0) 05/05/17 05:11 MCH 27.2 pg (27.0-34.0) 05/05/17 05:11 MCHC 33.1 g/dL (33.0-35.0) 05/05/17 05:11 RDW 17.6 % (11.6-16.5) H 05/05/17 05:11 Plt Count 323 X10^3/uL (150.0-450.0) 05/05/17 05:11 MPV 7.7 fL (7.4-11.0) 05/05/17 05:11 Neut % 64.4 % (42.0-75.0) 05/05/17 05:11 Lymph % 25.4 % (21.0-51.0) 05/05/17 05:11 [place] % 8.1 % (0.0-13.0) 05/05/17 05:11 Eos % 1.5 % (0.9-2.9) 05/05/17 05:11 Baso % 0.6 % (0.2-1.0) 05/05/17 05:11 Neut # 5.4 x10^3/uL (2.2-4.8) H 05/05/17 05:11 Lymph # 2.1 X10^3/uL (1.3-2.9) 05/05/17 05:11 [place] # 0.7 x10^3/uL (0.3-0.8) 05/05/17 05:11 Eos # 0.1 x10^3/uL (0.0-0.2) 05/05/17 05:11 Baso # 0.1 X10^3/uL (0.0-0.1) 05/05/17 05:11 Absolute Nucleated RBC 0.1 /100WBC 05/05/17 05:11 Sodium 144 mmol/L (136-145) 05/05/17 05:11 Corrected Sodium TNP 05/05/17 05:11 Potassium 3.8 mmol/L (3.5-5.1) 05/05/17 05:11 Chloride 108 mmol/L (98-107) H 05/05/17 05:11 Carbon Dioxide 28.4 mmol/L (21-32) 05/05/17 05:11 BUN 12 mg/dL (7-18) 05/05/17 05:11 Creatinine 0.49 mg/dL (0.70-1.30) L 05/05/17 05:11 Est GFR (MDRD) Af Amer > 60 (>60) 05/05/17 05:11 Est GFR (MDRD) Non-Af > 60 (>60) 05/05/17 05:11 Glucose 82 mg/dL (65-99) 05/05/17 05:11 Lactic Acid 2.4 mmol/L (0.4-2.0) H 04/28/17 14:10 Calcium 8.6 mg/dL (8.5-10.1) 05/05/17 05:11 Corrected Calcium 9.4 mg/dL (8.5-10.1) 05/05/17 05:11 Magnesium 1.9 mg/dL (1.7-2.9) 04/29/17 03:05 Total Bilirubin 0.50 mg/dL (0.2-1.0) 05/05/17 05:11 AST 66 Units/L (15-37) H 05/05/17 05:11 ALT 88 Units/L (12-78) H 05/05/17 05:11 Alkaline Phosphatase 210 Units/L (46-116) H 05/05/17 05:11 Total Protein 6.6 g/dL (6.4-8.2) 05/05/17 05:11 Albumin 3.0 g/dL (3.4-5.0) L 05/05/17 05:11 Globulin 3.6 g/dL (2.5-4.5) 05/05/17 05:11 Albumin/Globulin Ratio 0.8 Ratio (1.1-2.1) L 05/05/17 05:11 Specimen Type Catherized urine 04/28/17 14:40 Urine Color Yellow (YELLOW) 04/28/17 14:40 Urine Appearance Hazy (CLEAR) 04/28/17 14:40 Urine pH 6.5 (5.0 - 8.0) 04/28/17 14:40 Ur Specific [place] 1.010 (1.000-1.030) 04/28/17 14:40 Urine Protein 2+ (NEGATIVE) 04/28/17 14:40 Urine Glucose (UA) Negative (NEGATIVE) 04/28/17 14:40 Urine Ketones Negative (NEGATIVE) 04/28/17 14:40 Urine Occult Blood 2+ (NEGATIVE) 04/28/17 14:40 Urine Nitrite Negative (NEGATIVE) 04/28/17 14:40 Urine Bilirubin Negative (NEGATIVE) 04/28/17 14:40 Urine Urobilinogen Normal (NORMAL) 04/28/17 14:40 Ur Leukocyte Esterase Negative (NEGATIVE) 04/28/17 14:40 Urine RBC 0-2 /HPF (NEGATIVE) 04/28/17 14:40 Urine WBC 3-5 /HPF (NEGATIVE) 04/28/17 14:40 Ur Squamous Epith Cells Rare /HPF (NEGATIVE) 04/28/17 14:40 Urine Bacteria Trace /HPF (NEGATIVE) 04/28/17 14:40 Ur Culture Indicated? No/not indicated 04/28/17 14:40 Vancomycin Trough 11.8 ug/mL (15-20) L 05/03/17 20:23 Levetiracetam 25 ug/mL (12-46) 04/29/17 09:53 - Plan (1) Septic shock Status: Acute Plan: FORTAZ 2GM IV Q8H, VANCOMYCIN 1GM IV Q12H, CONTINUE TO MONITOR LABS AND VITALS (2) MRSA (methicillin resistant Staphylococcus aureus) Status: Acute Plan: CONTINUE TEFLARO 600MG IV Q12H AND BACTRIM DS 1 TAB BID, CONTINUE TO MONITOR (3) Fever Status: Acute Qualifiers: Fever type: unspecified Qualified Code(s): R50.9 - Fever, unspecified Plan: TYLENOL 650MG PO Q4H PRN, CHECK BLOOD CULTURES, CONTINUE TO MONITOR (4) Hypoalbuminemia Status: Acute Plan: ALBUMIN DAILY, TPN, CONTINUE TO MONITOR (5) Hypokalemia Status: Acute Plan: POTASSIUM SUPPLEMENTS, CONTINUE TO MONITOR (6) History of seizure disorder Status: Chronic Plan: CONTINUE KEPPRA, CONTINUE TO MONITOR
[2017-05-05] MEDS: TYLENOL 325 MG TAB PO PRN (14:48)
[2017-05-05] MEDS: ELAVIL PO SCH (21:03)
[2017-05-05] MEDS: ZyrTEC TAB 10 MG PO SCH (21:03)
[2017-05-05] MEDS: COLACE CAP 100 MG PO SCH (21:03)
[2017-05-05] MEDS: SNACK - Diabetic Appropriate PO SCH (21:03)
[2017-05-05] MEDS: KLONOPIN TAB 1 MG PO SCH (21:03)
[2017-05-05] MEDS: MILK OF MAGNESIA PO SCH (21:03)
[2017-05-05] MEDS: COGENTIN TAB 1 MG PO SCH (21:03)
[2017-05-06 05:23] LABS: BASOPHILS # (AUTO) 0.1 X10^3/uL (0.0-0.1); BASOPHILS % (AUTO) 0.8 % (0.2-1.0); EOSINOPHILS # (AUTO) 0.1 x10^3/uL (0.0-0.2); EOSINOPHILS % (AUTO) 1.2 % (0.9-2.9); HEMATOCRIT 24.2 % (42.0-54.0); HEMOGLOBIN 8.2 g/dL (13.5-18.0); LYMPHOCYTES # (AUTO) 1.7 X10^3/uL (1.3-2.9); MEAN CORPUSCULAR HEMOGLOBIN 27.6 pg (27.0-34.0); MEAN CORPUSCULAR VOLUME 81.2 fL (80.0-100.0); MEAN PLATELET VOLUME 7.7 fL (7.4-11.0); MONOCYTES # (AUTO) 0.8 x10^3/uL (0.3-0.8); MONOCYTES % (AUTO) 9.9 % (0.0-13.0); NEUTROPHILS # (AUTO) 5.7 x10^3/uL (2.2-4.8); NEUTROPHILS % (AUTO) 68.1 % (42.0-75.0); PLATELET COUNT 345 X10^3/uL (150.0-450.0); RED BLOOD COUNT 2.98 X10^6/uL (4.7-6.0); RED CELL DISTRIBUTION WIDTH 17.9 % (11.6-16.5); WHITE BLOOD COUNT 8.4 X10^3/uL (3.6-10.0)
[2017-05-06 05:30] LABS: ASPARTATE AMINO TRANSFERASE < 6 Units/L (15-37)
[2017-05-06 05:40] LABS: ALANINE AMINOTRANSFERASE 74 Units/L (12-78); ALKALINE PHOSPHATASE 212 Units/L (46-116); BLOOD UREA NITROGEN 10 mg/dL (7-18); CALCIUM 8.3 mg/dL (8.5-10.1); CARBON DIOXIDE 27.9 mmol/L (21-32); CHLORIDE 107 mmol/L (98-107); COR CA(FOR HYPOALB) 9.1 mg/dL (8.5-10.1); CREATININE 0.55 mg/dL (0.70-1.30); SODIUM 141 mmol/L (136-145); TOTAL PROTEIN 6.5 g/dL (6.4-8.2); eGFR BLACK RACES > 60 (>60); eGFR NON BLACK RACES > 60 (>60)
[2017-05-06 05:50] LABS: GLUCOSE 83 mg/dL (65-99)
[2017-05-06] MEDS: NS 1000 ML 1,000 ML IV SCH ×3 (06:17→14:38)
[2017-05-06] MEDS: PERIACTIN TAB 4 MG PO SCH ×3 (06:17→21:39)
[2017-05-06] MEDS: TEFLARO 600 MG in NS 50 ML IV + SPIKE MINIBAG* 50 ML IV SCH ×2 (08:25→21:41)
[2017-05-06] MEDS: BACTRIM DS TAB PO SCH ×2 (08:26→21:36)
[2017-05-06] MEDS: KEPPRA TAB 500 MG PO SCH ×2 (08:27→21:44)
[2017-05-06] MEDS: ALBUMIN HUMAN 25%- 100ML 200 ML IV SCH (08:27)
[2017-05-06] MEDS: SENOKOT PO SCH ×2 (08:28→21:43)
--- NOTE | 2017-05-06 08:39 | RAD ---
Chest, one view Indication: Sepsis Comparison: May 05, 2017 Findings: There is stable cardiomegaly. Bibasilar infiltrates appear essentially unchanged since yest erday's exam. There is a new left pleural effusion. The upper lung yeboah remain clear. No pneumothor ax. Impression: Stable bibasilar infiltrates with new left pleural effusion. Reported By:
--- NOTE | 2017-05-06 09:50 | PCM.PROG ---
Progress Note - Progress Note for Day of Date: 05/06/17 - Subjective Subjective: IS IN BED WITH EYES CLOSED ON MORNING ROUNDS. HE AWAKENS TO VERBAL STIMULI. HIS CAREGIVER IS AT BEDSIDE. VITALS THIS AM ARE 98.8-78-25- 100%-151/65. CBC WNL EXCEPT RBC 2.98, HGB 8.2, HCT 24.2. CMP WNL EXCEPT CREATININE 0.55, CALCIUM 8.3, AST <6, ALKALINE PHOSPHATASE 212, ALBUMIN 3.0. CHEST XRAY REPORTS STABLE BIBASILAR INFILTRATES WITH NEW LEFT PLEURAL EFFUSION. PRELIMINARY SPUTUM CULTURE RESULTS REPORT GRAM NEGATIVE RODS AND STAPHS WITH SCANT NORMAL MALINDA AT DAY 1. WE PLAN TO KEEP PATIENT UNTIL FINAL CULTURE REPORT IS BACK AND THEN DISCONTINUE HOME ON ANTIBIOTICS. WE PLAN TO RECHECK LABS AND FOLLOW UP WITH PATIENT IN AM. - Past Medical Family Social History Past Med/Fam/Surg Hx: No changes since H&P Allergies: Allergies haloperidol [From Haldol] Allergy (Verified 03/08/17 18:41) - Review of Systems ROS: No change since H&P - Vital Signs and I&O's Vital Signs: Temperature 99.8 F Pulse Rate [Apical] 90 Pulse Rate 92 Respiratory Rate 31 Blood Pressure [Right Calf] 160/69 Blood Pressure [Right Arm] 127/57 Blood Pressure [Left Arm] 182/89 Blood Pressure 130/38 O2 Sat by Pulse Oximetry 100 Intake and Output: Intake & Output 05/03/17 05/04/17 05/05/17 05/06/17 11:59 11:59 11:59 11:59 Intake Total 4921 3691 3494 4037 Output Total 1300 5100 1900 2545 Balance 3621 -1409 1594 1492 - Physical Exam Oriented: Unable to test Eyes: Normal Ear: Normal Nose: Normal Throat: Normal Respiratory: Normal Cardiovascular: Normal : Normal Auscultation: Bowel Sounds: Normal Palpation: Normal Tenderness: Normal Skin: Normal Musculoskeletal: Normal Psychiatric: Normal Mood Description: Calm Affect: Normal Speech Pattern: Aphasic - Laboratory and Diagnostics Result Diagrams: 05/06/17 05:00 05/06/17 05:00 Labs: 05/04/17 10:23 Sputum - Expectorated Sputum Sputum Culture - Final Enterobacter Aerogenes 05/04/17 10:23 Sputum - Expectorated Sputum - Final 04/28/17 14:10 Blood Blood Culture - Final Methicillin Resis Staph Aureus 04/28/17 14:04 Blood Blood Culture - Final Methicillin Resis Staph Aureus Laboratory WBC 8.4 X10^3/uL (3.6-10.0) 05/06/17 05:00 RBC 2.98 X10^6/uL (4.7-6.0) L 05/06/17 05:00 Hgb 8.2 g/dL (13.5-18.0) L 05/06/17 05:00 Hct 24.2 % (42.0-54.0) L 05/06/17 05:00 MCV 81.2 fL (80.0-100.0) 05/06/17 05:00 MCH 27.6 pg (27.0-34.0) 05/06/17 05:00 MCHC 34.0 g/dL (33.0-35.0) 05/06/17 05:00 RDW 17.9 % (11.6-16.5) H 05/06/17 05:00 Plt Count 345 X10^3/uL (150.0-450.0) 05/06/17 05:00 MPV 7.7 fL (7.4-11.0) 05/06/17 05:00 Neut % 68.1 % (42.0-75.0) 05/06/17 05:00 Lymph % 20.0 % (21.0-51.0) L 05/06/17 05:00 [place] % 9.9 % (0.0-13.0) 05/06/17 05:00 Eos % 1.2 % (0.9-2.9) 05/06/17 05:00 Baso % 0.8 % (0.2-1.0) 05/06/17 05:00 Neut # 5.7 x10^3/uL (2.2-4.8) H 05/06/17 05:00 Lymph # 1.7 X10^3/uL (1.3-2.9) 05/06/17 05:00 [place] # 0.8 x10^3/uL (0.3-0.8) 05/06/17 05:00 Eos # 0.1 x10^3/uL (0.0-0.2) 05/06/17 05:00 Baso # 0.1 X10^3/uL (0.0-0.1) 05/06/17 05:00 Absolute Nucleated RBC 0.1 /100WBC 05/06/17 05:00 Sodium 141 mmol/L (136-145) 05/06/17 05:00 Corrected Sodium TNP 05/06/17 05:00 Potassium 3.8 mmol/L (3.5-5.1) 05/06/17 05:00 Chloride 107 mmol/L (98-107) 05/06/17 05:00 Carbon Dioxide 27.9 mmol/L (21-32) 05/06/17 05:00 BUN 10 mg/dL (7-18) 05/06/17 05:00 Creatinine 0.55 mg/dL (0.70-1.30) L 05/06/17 05:00 Est GFR (MDRD) Af Amer > 60 (>60) 05/06/17 05:00 Est GFR (MDRD) Non-Af > 60 (>60) 05/06/17 05:00 Glucose 83 mg/dL (65-99) 05/06/17 05:00 Lactic Acid 2.4 mmol/L (0.4-2.0) H 04/28/17 14:10 Calcium 8.3 mg/dL (8.5-10.1) L 05/06/17 05:00 Corrected Calcium 9.1 mg/dL (8.5-10.1) 05/06/17 05:00 Magnesium 1.9 mg/dL (1.7-2.9) 04/29/17 03:05 Total Bilirubin 0.40 mg/dL (0.2-1.0) 05/06/17 05:00 AST < 6 Units/L (15-37) L 05/06/17 05:00 ALT 74 Units/L (12-78) 05/06/17 05:00 Alkaline Phosphatase 212 Units/L (46-116) H 05/06/17 05:00 Total Protein 6.5 g/dL (6.4-8.2) 05/06/17 05:00 Albumin 3.0 g/dL (3.4-5.0) L 05/06/17 05:00 Globulin 3.5 g/dL (2.5-4.5) 05/06/17 05:00 Albumin/Globulin Ratio 0.9 Ratio (1.1-2.1) L 05/06/17 05:00 Specimen Type Catherized urine 04/28/17 14:40 Urine Color Yellow (YELLOW) 04/28/17 14:40 Urine Appearance Hazy (CLEAR) 04/28/17 14:40 Urine pH 6.5 (5.0 - 8.0) 04/28/17 14:40 Ur Specific [place] 1.010 (1.000-1.030) 04/28/17 14:40 Urine Protein 2+ (NEGATIVE) 04/28/17 14:40 Urine Glucose (UA) Negative (NEGATIVE) 04/28/17 14:40 Urine Ketones Negative (NEGATIVE) 04/28/17 14:40 Urine Occult Blood 2+ (NEGATIVE) 04/28/17 14:40 Urine Nitrite Negative (NEGATIVE) 04/28/17 14:40 Urine Bilirubin Negative (NEGATIVE) 04/28/17 14:40 Urine Urobilinogen Normal (NORMAL) 04/28/17 14:40 Ur Leukocyte Esterase Negative (NEGATIVE) 04/28/17 14:40 Urine RBC 0-2 /HPF (NEGATIVE) 04/28/17 14:40 Urine WBC 3-5 /HPF (NEGATIVE) 04/28/17 14:40 Ur Squamous Epith Cells Rare /HPF (NEGATIVE) 04/28/17 14:40 Urine Bacteria Trace /HPF (NEGATIVE) 04/28/17 14:40 Ur Culture Indicated? No/not indicated 04/28/17 14:40 Vancomycin Trough 11.8 ug/mL (15-20) L 05/03/17 20:23 Levetiracetam 25 ug/mL (12-46) 04/29/17 09:53 - Plan (1) Septic shock Status: Acute Plan: FORTAZ 2GM IV Q8H, VANCOMYCIN 1GM IV Q12H, CONTINUE TO MONITOR LABS AND VITALS (2) MRSA (methicillin resistant Staphylococcus aureus) Status: Acute Plan: CONTINUE TEFLARO 600MG IV Q12H AND BACTRIM DS 1 TAB BID, CONTINUE TO MONITOR (3) Fever Status: Acute Qualifiers: Fever type: unspecified Qualified Code(s): R50.9 - Fever, unspecified Plan: TYLENOL 650MG PO Q4H PRN, CHECK BLOOD CULTURES, CONTINUE TO MONITOR (4) Hypoalbuminemia Status: Acute Plan: ALBUMIN DAILY, TPN, CONTINUE TO MONITOR (5) Hypokalemia Status: Acute Plan: POTASSIUM SUPPLEMENTS, CONTINUE TO MONITOR (6) History of seizure disorder Status: Chronic Plan: CONTINUE KEPPRA, CONTINUE TO MONITOR
[2017-05-06] MEDS: CLINIMIX 4.25 %/10 % 1,000 ML with MVI INJ (ADULT) 10 ML, TRACE ELEMENTS INJ 10 ML, POT... IV SCH ×10 (10:09→21:40)
[2017-05-06] MEDS: TORADOL 15 MG VIAL IVP PRN ×2 (10:10→19:58)
[2017-05-06] MEDS: NS 500 ML IV 500 ML IV SCH (10:33)
[2017-05-06] MEDS: COGENTIN TAB 1 MG PO SCH (21:39)
[2017-05-06] MEDS: ZyrTEC TAB 10 MG PO SCH (21:41)
[2017-05-06] MEDS: MILK OF MAGNESIA PO SCH (21:43)
[2017-05-06] MEDS: ELAVIL PO SCH (21:43)
[2017-05-06] MEDS: COLACE CAP 100 MG PO SCH (21:43)
[2017-05-06] MEDS: KLONOPIN TAB 1 MG PO SCH (21:44)
[2017-05-06] MEDS: SNACK - Diabetic Appropriate PO SCH (21:45)
[2017-05-07 06:09] LABS: BASOPHILS # (AUTO) 0.1 X10^3/uL (0.0-0.1); BASOPHILS % (AUTO) 0.9 % (0.2-1.0); EOSINOPHILS # (AUTO) 0.1 x10^3/uL (0.0-0.2); EOSINOPHILS % (AUTO) 1.8 % (0.9-2.9); HEMOGLOBIN 7.9 g/dL (13.5-18.0); LYMPHOCYTES % (AUTO) 24.3 % (21.0-51.0); MEAN CORPUSCULAR HGB CONC 32.8 g/dL (33.0-35.0); MEAN CORPUSCULAR VOLUME 82.1 fL (80.0-100.0); MEAN PLATELET VOLUME 7.9 fL (7.4-11.0); MONOCYTES # (AUTO) 0.7 x10^3/uL (0.3-0.8); MONOCYTES % (AUTO) 9.1 % (0.0-13.0); NEUTROPHILS # (AUTO) 5.3 x10^3/uL (2.2-4.8); NEUTROPHILS % (AUTO) 63.9 % (42.0-75.0); PLATELET COUNT 367 X10^3/uL (150.0-450.0); RED BLOOD COUNT 2.92 X10^6/uL (4.7-6.0); RED CELL DISTRIBUTION WIDTH 17.5 % (11.6-16.5); WHITE BLOOD COUNT 8.2 X10^3/uL (3.6-10.0)
[2017-05-07] MEDS: PERIACTIN TAB 4 MG PO SCH ×2 (06:12→14:42)
[2017-05-07] MEDS: NS 1000 ML 1,000 ML IV SCH ×2 (06:13→14:43)
[2017-05-07 06:27] LABS: ALANINE AMINOTRANSFERASE 57 Units/L (12-78); ALKALINE PHOSPHATASE 190 Units/L (46-116); ASPARTATE AMINO TRANSFERASE 32 Units/L (15-37); BLOOD UREA NITROGEN 14 mg/dL (7-18); CALCIUM 8.2 mg/dL (8.5-10.1); CARBON DIOXIDE 24.6 mmol/L (21-32); CHLORIDE 108 mmol/L (98-107); GLUCOSE 99 mg/dL (65-99); SODIUM 139 mmol/L (136-145); TOTAL PROTEIN 6.5 g/dL (6.4-8.2); eGFR BLACK RACES > 60 (>60); eGFR NON BLACK RACES > 60 (>60)
[2017-05-07 06:49] LABS: PLATELET MORPHOLOGY COMMENT NORMAL (NORMAL)
--- NOTE | 2017-05-07 06:50 | RAD ---
HISTORY: Sepsis Study: AP portable chest Comparison: May 06, 2017 Findings: The patient is rotated to the left. The heart is enlarged. No definite congestive heart failure is no dominic. There has been slight improvement in the right basilar lung infiltrate being followed. The left lung infiltrates are unchanged. No pleural effusions are identified. The bony thorax is unremarkable. IMPRESSION: Cardiomegaly without congestive heart failure Slight improvement right basilar lung infiltrate No change left perihilar infiltrate Reported By:
[2017-05-07] MEDS: KEPPRA TAB 500 MG PO SCH (08:15)
[2017-05-07] MEDS: SENOKOT PO SCH (08:15)
[2017-05-07] MEDS: BACTRIM DS TAB PO SCH (08:15)
[2017-05-07] MEDS: ALBUMIN HUMAN 25%- 100ML 200 ML IV SCH (08:16)
[2017-05-07] MEDS: TEFLARO 600 MG in NS 50 ML IV + SPIKE MINIBAG* 50 ML IV SCH (08:17)
[2017-05-07] MEDS: CLINIMIX 4.25 %/10 % 1,000 ML with MVI INJ (ADULT) 10 ML, TRACE ELEMENTS INJ 10 ML, POT... IV SCH ×5 (10:17)
[2017-05-07] MEDS: NS 500 ML IV 500 ML IV SCH (10:18)
[2017-05-07] MEDS: NORCO 5/325 MG TAB PO PRN (14:42)
[2017-05-07 15:44] VITALS: BP 181/80
== END 2017-05-07 15:35 | disposition hospice, home (50) | DRG 871 ==
LOC: ICU 11:55
PROVIDERS: ADMIT Internal Medicine; ATTEND Internal Medicine
DX: A41.02 Sepsis due to Methicillin resistant Staphylococcus aureus (principal); R65.21 Severe sepsis with septic shock; J18.8 Other pneumonia, unspecified organism; G40.909 Epilepsy, unspecified, not intractable, without status epilepticus; I95.89 Other hypotension; R50.9 Fever, unspecified; R27.8 Other lack of coordination; I51.7 Cardiomegaly; E88.09 Other disorders of plasma-protein metabolism, not elsewhere classified; E87.6 Hypokalemia; J90 Pleural effusion, not elsewhere classified; B95.2 Enterococcus as the cause of diseases classified elsewhere; R13.11 Dysphagia, oral phase; F79 Unspecified intellectual disabilities
CPT/HCPCS: 36415; 71010; 80053; 80177; 80202; 81001; 82565; 83605; 83735; 84132; 85025; 87040; 87070; 87077; 87186; 87205; 94640; A4222; B4189; P9047; J0712; J0713; J3370; J3480; J3490; J7613

== ENCOUNTER 2019-01-27 13:34 | Inpatient (IN) ==
[2019-01-27] MEDS ORDERED: NORCO 5/325 MG TAB PO PRN (18:08)
[2019-01-27] MEDS: PATIENT'S HOME MEDICATION PO SCH ×9 (21:05→21:12)
[2019-01-28] MEDS: PATIENT'S HOME MEDICATION PO SCH ×14 (05:28→21:15)
[2019-01-28] MEDS ORDERED: PATIENT'S HOME MEDICATION PO SCH (09:00)
[2019-01-29] MEDS: PATIENT'S HOME MEDICATION PO SCH ×14 (06:39→21:01)
[2019-01-29] MEDS ORDERED: BUTT CREAM (COMPOUND) TOP PRN (10:00)
--- NOTE | 2019-01-29 18:02 | DR.H&P ---
H&P - History & Physical for Day of: H&P Date: 01/29/19 - Chief Complaint Chief Complaint: RESPIT CARE - History of Present Illness History of Present Illness: IS A 58 YEAR OLD PATIENT OF OURS. PATIENT IS MR AND IS CURRENTLY UNDER THE CARE OF [facility]. HE HAS A MEDICAL HISTORY SIGNIFICANT FOR SEIZURES, ANXIETY, AND IS APHASIC. HE WAS ADMITTED FOR RESPIT CARE. WE PLAN TO RESUME HIS HOME MEDICATIONS ON ADMISSION AND MONITOR. LABS. - Past Medical History Past Medical History: Anxiety, Seizures Additional Medical History: Mental Retardation, Parkinson's, Mood Disorders - Past Surgical History Surgical History: Ortho Surgery - Family History Family Medical History: Coronary Artery Disease - Medications Home Medications: haloperidol [From Haldol] Allergy (Verified 03/08/17 18:41) CONTINUE taking the following medications cetirizine 10 mg PO QDAY 01/27/19 [History] lorazepam 0.5 mg PO Q6HR PRN 01/27/19 [History] - Review of Systems Constitutional: No Symptoms Reported Eyes: No Symptoms Reported ENT: No Symptoms Reported Respiratory: No Symptoms Reported Cardiovascular: No Symptoms Reported Gastrointestinal: No Symptoms Reported Genitourinary: No Symptoms Reported Musculoskeletal: No Symptoms Reported Skin: No Symptoms Reported Neurological: No Symptoms Reported - Physical Exam Vital Signs: Temperature 99.1 F Pulse Rate [Left Brachial] 89 Respiratory Rate 18 Blood Pressure [Right Calf] 181/80 Blood Pressure [Right Arm] 111/55 Blood Pressure [Left Arm] 97/52 Blood Pressure 181/80 O2 Sat by Pulse Oximetry 96 Oriented: Person Eyes: Normal Ear: Normal Nose: Normal Throat: Normal Respiratory: Diminished Throughout Cardiovascular: Normal : Normal Auscultation: Bowel Sounds: Normal Palpation: Normal Tenderness: Normal Skin: Normal Musculoskeletal: Normal Psychiatric: Normal Mood Description: Calm Affect: Normal Speech Pattern: Aphasic - Allergies Allergies/Adverse Reactions: Allergies Allergy/AdvReac Type Severity Reaction Status Date / Time haloperidol [From Haldol] Allergy Verified 03/08/17 18:41
--- NOTE | 2019-01-29 18:16 | PCM.PROG ---
Progress Note - Progress Note for Day of Date of Exam: 01/28/19 - Subjective Subjective: WAS ADMITTED FOR RESPIT CARE UNDER [facility]. TODAY, HE IS ALERT, LYING IN BED ON MORNING ROUNDS. HE IS APHASIC, BUT DOES MOVE TO VERBAL STIMULI. ON EXAMINATION, HEART IS REGULAR IN RATE AND RHYTHM. BILATERAL LUNGS ARE NOTED WITH DIMINISHED LUNG SOUNDS THROUGHOUT. ABDOMEN IS ROUND, SOFT, AND NON-TENDER WITH NORMAL BOWEL SOUNDS NOTED IN ALL QUADRANTS. HIS VITALS THIS MORNING ARE 98.3-96-18-94%-101/49. HIS HOME MEDICATIONS WERE RESUMED. WE WILL MONITOR LABS AND CONTINUE CURRENT PLAN OF CARE TODAY. [facility] WILL CONTINUE TO MONITOR PATIENT WELL. - Past Medical Family Social History Past Med/Fam/Surg Hx: No changes since H&P Allergies: Allergies haloperidol [From Haldol] Allergy (Verified 03/08/17 18:41) - Review of Systems ROS: No change since H&P - Vital Signs and I&O's Vital Signs: Temperature 99.1 F Pulse Rate [Left Brachial] 89 Respiratory Rate 18 Blood Pressure [Right Calf] 181/80 Blood Pressure [Right Arm] 111/55 Blood Pressure [Left Arm] 97/52 Blood Pressure 181/80 O2 Sat by Pulse Oximetry 96 Intake and Output: Intake & Output 01/27/19 01/28/19 01/29/19 01/30/19 11:59 11:59 11:59 11:59 Intake Total 50 / 50 180 / 180 Output Total 600 / 600 900 / 900 Balance -550 / -550 -720 / -720 - Physical Exam Oriented: Person Eyes: Normal Ear: Normal Nose: Normal Throat: Normal Respiratory: Generalized, Diminished Cardiovascular: Normal : Normal Auscultation: Bowel Sounds: Normal Palpation: Normal Tenderness: Normal Skin: Normal Musculoskeletal: Normal Psychiatric: Normal Mood Description: Calm Affect: Normal Speech Pattern: Aphasic
--- NOTE | 2019-01-29 18:20 | PCM.PROG ---
Progress Note - Progress Note for Day of Date of Exam: 01/29/19 - Subjective Subjective: WAS ADMITTED FOR RESPIT CARE UNDER [facility]. TODAY, HE IS ALERT, LYING IN BED ON MORNING ROUNDS. HE IS APHASIC, BUT DOES MOVE TO VERBAL STIMULI. ON EXAMINATION, HEART IS REGULAR IN RATE AND RHYTHM. BILATERAL LUNGS ARE NOTED WITH DIMINISHED LUNG SOUNDS THROUGHOUT. ABDOMEN IS ROUND, SOFT, AND NON-TENDER WITH NORMAL BOWEL SOUNDS NOTED IN ALL QUADRANTS. HIS VITALS THIS MORNING ARE 99.1-89-18-96%-97/52. HIS HOME MEDICATIONS WERE RESUMED. WE WILL MONITOR LABS AND CONTINUE CURRENT PLAN OF CARE TODAY. [facility] WILL CONTINUE TO MONITOR PATIENT. - Past Medical Family Social History Past Med/Fam/Surg Hx: No changes since H&P Allergies: Allergies haloperidol [From Haldol] Allergy (Verified 03/08/17 18:41) - Review of Systems ROS: No change since H&P - Vital Signs and I&O's Vital Signs: Temperature 99.1 F Pulse Rate [Left Brachial] 89 Respiratory Rate 18 Blood Pressure [Right Calf] 181/80 Blood Pressure [Right Arm] 111/55 Blood Pressure [Left Arm] 97/52 Blood Pressure 181/80 O2 Sat by Pulse Oximetry 96 Intake and Output: Intake & Output 01/27/19 01/28/19 01/29/19 01/30/19 11:59 11:59 11:59 11:59 Intake Total 50 / 50 180 / 180 Output Total 600 / 600 900 / 900 Balance -550 / -550 -720 / -720 - Physical Exam Oriented: Person Eyes: Normal Ear: Normal Nose: Normal Throat: Normal Respiratory: Generalized, Diminished Cardiovascular: Normal : Normal Auscultation: Bowel Sounds: Normal Tenderness: Normal Skin: Normal Musculoskeletal: Normal Psychiatric: Normal Mood Description: Calm Affect: Normal Speech Pattern: Aphasic
[2019-01-30 04:50] LABS: BASOPHILS % (AUTO) 0.5 % (0.2-1.0); EOSINOPHILS # (AUTO) 0.1 x10^3/uL (0.0-0.2); EOSINOPHILS % (AUTO) 1.2 % (0.9-2.9); HEMATOCRIT 32.1 % (42.0-54.0); HEMOGLOBIN 10.6 g/dL (13.5-18.0); LYMPHOCYTES # (AUTO) 1.9 X10^3/uL (1.3-2.9); LYMPHOCYTES % (AUTO) 29.8 % (21.0-51.0); MEAN CORPUSCULAR HEMOGLOBIN 28.3 pg (27.0-34.0); MEAN CORPUSCULAR HGB CONC 33.2 g/dL (33.0-35.0); MEAN CORPUSCULAR VOLUME 85.3 fL (80.0-100.0); MEAN PLATELET VOLUME 7.7 fL (7.4-11.0); MONOCYTES # (AUTO) 0.7 x10^3/uL (0.3-0.8); NEUTROPHILS # (AUTO) 3.8 x10^3/uL (2.2-4.8); NEUTROPHILS % (AUTO) 58.5 % (42.0-75.0); PLATELET COUNT 172 X10^3/uL (150.0-450.0); RED BLOOD COUNT 3.76 X10^6/uL (4.7-6.0); RED CELL DISTRIBUTION WIDTH 15.6 % (11.6-16.5); WHITE BLOOD COUNT 6.5 X10^3/uL (3.6-10.0)
[2019-01-30 05:03] LABS: ALANINE AMINOTRANSFERASE 15 Units/L (12-78); ALBUMIN 2.1 g/dL (3.4-5.0); ALKALINE PHOSPHATASE 122 Units/L (46-116); ASPARTATE AMINO TRANSFERASE 14 Units/L (15-37); BLOOD UREA NITROGEN 15 mg/dL (7-18); CALCIUM 8.6 mg/dL (8.5-10.1); CARBON DIOXIDE 27.8 mmol/L (21-32); CHLORIDE 106 mmol/L (98-107); COR CA(FOR HYPOALB) 10.1 mg/dL (8.5-10.1); CREATININE 0.73 mg/dL (0.70-1.30); SODIUM 139 mmol/L (136-145); TOTAL PROTEIN 6.7 g/dL (6.4-8.2); eGFR NON BLACK RACES > 60 (>60)
[2019-01-30] MEDS: PATIENT'S HOME MEDICATION PO SCH ×14 (05:59→21:12)
[2019-01-30 09:59] VITALS: BMI 16.5
[2019-01-30] MEDS: TYLENOL ELIXIR 325 MG UDC PO PRN (18:05)
[2019-01-30] MEDS ORDERED: ROCEPHIN VIAL 1 GRAM IM ONE (19:17)
[2019-01-30] MEDS ORDERED: XYLOCAINE 1 % (PLAIN) ONE (19:38)
[2019-01-31] MEDS: PATIENT'S HOME MEDICATION PO SCH ×14 (05:17→21:19)
[2019-01-31] MEDS: TYLENOL ELIXIR 325 MG UDC PO PRN ×2 (11:31→21:19)
--- NOTE | 2019-01-31 11:40 | PCM.PROG ---
Progress Note - Progress Note for Day of Date of Exam: 01/30/19 - Subjective Subjective: WAS ADMITTED FOR RESPIT CARE UNDER [facility]. TODAY, HE IS ALERT, LYING IN BED ON MORNING ROUNDS. HE IS APHASIC, BUT DOES MOVE TO VERBAL STIMULI. ON EXAMINATION, HEART IS REGULAR IN RATE AND RHYTHM. BILATERAL LUNGS ARE NOTED WITH DIMINISHED LUNG SOUNDS THROUGHOUT. ABDOMEN IS ROUND, SOFT, AND NON-TENDER WITH NORMAL BOWEL SOUNDS NOTED IN ALL QUADRANTS. HIS VITALS THIS MORNING ARE 99.7-83-18-96%-95/50. HE HAS BEEN RUNNING A LOW GRADE FEVER SINCE YESTERDAY. LABS WERE OBTAINED THIS MORNING. ABNORMAL LAB VALUES INCLUDE THE FOLLOWING: RBC 3.76, HGB 10.6, HCT 32.1, AST 14, ALK PHOS 122, ALBUMIN 2.4, GLOBULIN 4.6. WE WILL OBTAIN A URINALYSIS TODAY. OTHERWISE, WE WILL MONITOR LABS AND CONTINUE CURRENT PLAN OF CARE. [facility] WILL CONTINUE TO MONITOR PATIENT. - Past Medical Family Social History Past Med/Fam/Surg Hx: No changes since H&P Allergies: Allergies haloperidol [From Haldol] Allergy (Verified 03/08/17 18:41) - Review of Systems ROS: No change since H&P - Vital Signs and I&O's Vital Signs: Temperature 98.0 F Pulse Rate [Left Brachial] 73 Respiratory Rate 18 Blood Pressure [Right Calf] 181/80 Blood Pressure [Right Arm] 111/55 Blood Pressure [Left Arm] 88/51 Blood Pressure 181/80 O2 Sat by Pulse Oximetry 93 Intake and Output: Intake & Output 01/28/19 01/29/19 01/30/19 01/31/19 11:59 11:59 11:59 11:59 Intake Total 50 / 50 180 / 180 160 / 160 434 / 434 Output Total 600 / 600 900 / 900 400 / 400 450 / 450 Balance -550 / -550 -720 / -720 -240 / -240 -16 / -16 - Physical Exam Oriented: Person Eyes: Normal Ear: Normal Nose: Normal Throat: Normal Respiratory: Generalized, Diminished Cardiovascular: Normal : Normal Auscultation: Bowel Sounds: Normal Tenderness: Normal Skin: Normal Musculoskeletal: Normal Psychiatric: Normal Mood Description: Calm Affect: Normal Speech Pattern: Aphasic - Laboratory and Diagnostics Result Diagrams: 01/30/19 04:00 01/30/19 04:00 Labs: Laboratory WBC 6.5 X10^3/uL (3.6-10.0) 01/30/19 04:00 RBC 3.76 X10^6/uL (4.7-6.0) L 01/30/19 04:00 Hgb 10.6 g/dL (13.5-18.0) L 01/30/19 04:00 Hct 32.1 % (42.0-54.0) L 01/30/19 04:00 MCV 85.3 fL (80.0-100.0) 01/30/19 04:00 MCH 28.3 pg (27.0-34.0) 01/30/19 04:00 MCHC 33.2 g/dL (33.0-35.0) 01/30/19 04:00 RDW 15.6 % (11.6-16.5) 01/30/19 04:00 Plt Count 172 X10^3/uL (150.0-450.0) 01/30/19 04:00 MPV 7.7 fL (7.4-11.0) 01/30/19 04:00 Neut % (Auto) 58.5 % (42.0-75.0) 01/30/19 04:00 Lymph % (Auto) 29.8 % (21.0-51.0) 01/30/19 04:00 [place] % (Auto) 10.0 % (0.0-13.0) 01/30/19 04:00 Eos % (Auto) 1.2 % (0.9-2.9) 01/30/19 04:00 Baso % (Auto) 0.5 % (0.2-1.0) 01/30/19 04:00 Neut # (Auto) 3.8 x10^3/uL (2.2-4.8) 01/30/19 04:00 Lymph # (Auto) 1.9 X10^3/uL (1.3-2.9) 01/30/19 04:00 Daniels # (Auto) 0.7 x10^3/uL (0.3-0.8) 01/30/19 04:00 Eos # (Auto) 0.1 x10^3/uL (0.0-0.2) 01/30/19 04:00 Baso # (Auto) 0.0 X10^3/uL (0.0-0.1) 01/30/19 04:00 Absolute Nucleated RBC 0.1 /100WBC 01/30/19 04:00 Sodium 139 mmol/L (136-145) 01/30/19 04:00 Corrected Sodium TNP 01/30/19 04:00 Potassium 4.1 mmol/L (3.5-5.1) 01/30/19 04:00 Chloride 106 mmol/L (98-107) 01/30/19 04:00 Carbon Dioxide 27.8 mmol/L (21-32) 01/30/19 04:00 BUN 15 mg/dL (7-18) 01/30/19 04:00 Creatinine 0.73 mg/dL (0.70-1.30) 01/30/19 04:00 Est GFR (MDRD) Af Amer > 60 (>60) 01/30/19 04:00 Est GFR (MDRD) Non-Af > 60 (>60) 01/30/19 04:00 Glucose 76 mg/dL (65-99) 01/30/19 04:00 Calcium 8.6 mg/dL (8.5-10.1) 01/30/19 04:00 Corrected Calcium 10.1 mg/dL (8.5-10.1) 01/30/19 04:00 Total Bilirubin 0.40 mg/dL (0.2-1.0) 01/30/19 04:00 AST 14 Units/L (15-37) L 01/30/19 04:00 ALT 15 Units/L (12-78) 01/30/19 04:00 Alkaline Phosphatase 122 Units/L (46-116) H 01/30/19 04:00 Total Protein 6.7 g/dL (6.4-8.2) 01/30/19 04:00 Albumin 2.1 g/dL (3.4-5.0) L 01/30/19 04:00 Globulin 4.6 g/dL (2.5-4.5) H 01/30/19 04:00 Albumin/Globulin Ratio 0.5 Ratio (1.1-2.1) L 01/30/19 04:00 - Plan (1) Fever Status: Acute Qualifiers: Fever type: unspecified Qualified Code(s): R50.9 - Fever, unspecified Plan: OBTAIN URINALYSIS, CONTINUE TO MONITOR
--- NOTE | 2019-01-31 11:45 | PCM.PROG ---
Progress Note - Progress Note for Day of Date of Exam: 01/31/19 - Subjective Subjective: WAS ADMITTED FOR RESPIT CARE UNDER [facility]. TODAY, HE IS ALERT, LYING IN BED ON MORNING ROUNDS. HE IS APHASIC, BUT DOES MOVE TO VERBAL STIMULI. ON EXAMINATION, HEART IS REGULAR IN RATE AND RHYTHM. BILATERAL LUNGS ARE NOTED WITH DIMINISHED LUNG SOUNDS THROUGHOUT. ABDOMEN IS ROUND, SOFT, AND NON-TENDER WITH NORMAL BOWEL SOUNDS NOTED IN ALL QUADRANTS. HIS VITALS THIS MORNING ARE 98.0-73-18-93%-88/51. HE CONTINUED TO BE FEBRILE THROUGHOUT THE NIGHT. WE GAVE HIM A ONE TIME DOSE OF ROCEPHIN 1GM IM. WE ORDERED FOR A URINALYSIS TO BE OBTAINED, BUT IT HAS NOT BEEN COLLECTED AT THIS TIME. OTHERWISE, WE WILL MONITOR LABS AND CONTINUE CURRENT PLAN OF CARE. [facility] WILL CONTINUE TO MONITOR PATIENT TODAY. - Past Medical Family Social History Past Med/Fam/Surg Hx: No changes since H&P Allergies: Allergies haloperidol [From Haldol] Allergy (Verified 03/08/17 18:41) - Review of Systems ROS: No change since H&P - Vital Signs and I&O's Vital Signs: Temperature 98.0 F Pulse Rate [Left Brachial] 73 Respiratory Rate 18 Blood Pressure [Right Calf] 181/80 Blood Pressure [Right Arm] 111/55 Blood Pressure [Left Arm] 88/51 Blood Pressure 181/80 O2 Sat by Pulse Oximetry 93 Intake and Output: Intake & Output 01/28/19 01/29/19 01/30/19 01/31/19 11:59 11:59 11:59 11:59 Intake Total 50 / 50 180 / 180 160 / 160 434 / 434 Output Total 600 / 600 900 / 900 400 / 400 450 / 450 Balance -550 / -550 -720 / -720 -240 / -240 -16 / -16 - Physical Exam Oriented: Person Eyes: Normal Ear: Normal Nose: Normal Throat: Normal Respiratory: Generalized, Diminished Cardiovascular: Normal : Normal Auscultation: Bowel Sounds: Normal Tenderness: Normal Skin: Normal Musculoskeletal: Normal Psychiatric: Normal Mood Description: Calm Affect: Normal Speech Pattern: Aphasic - Laboratory and Diagnostics Result Diagrams: 01/30/19 04:00 01/30/19 04:00 Labs: Laboratory WBC 6.5 X10^3/uL (3.6-10.0) 01/30/19 04:00 RBC 3.76 X10^6/uL (4.7-6.0) L 01/30/19 04:00 Hgb 10.6 g/dL (13.5-18.0) L 01/30/19 04:00 Hct 32.1 % (42.0-54.0) L 01/30/19 04:00 MCV 85.3 fL (80.0-100.0) 01/30/19 04:00 MCH 28.3 pg (27.0-34.0) 01/30/19 04:00 MCHC 33.2 g/dL (33.0-35.0) 01/30/19 04:00 RDW 15.6 % (11.6-16.5) 01/30/19 04:00 Plt Count 172 X10^3/uL (150.0-450.0) 01/30/19 04:00 MPV 7.7 fL (7.4-11.0) 01/30/19 04:00 Neut % (Auto) 58.5 % (42.0-75.0) 01/30/19 04:00 Lymph % (Auto) 29.8 % (21.0-51.0) 01/30/19 04:00 [place] % (Auto) 10.0 % (0.0-13.0) 01/30/19 04:00 Eos % (Auto) 1.2 % (0.9-2.9) 01/30/19 04:00 Baso % (Auto) 0.5 % (0.2-1.0) 01/30/19 04:00 Neut # (Auto) 3.8 x10^3/uL (2.2-4.8) 01/30/19 04:00 Lymph # (Auto) 1.9 X10^3/uL (1.3-2.9) 01/30/19 04:00 [place] # (Auto) 0.7 x10^3/uL (0.3-0.8) 01/30/19 04:00 Eos # (Auto) 0.1 x10^3/uL (0.0-0.2) 01/30/19 04:00 Baso # (Auto) 0.0 X10^3/uL (0.0-0.1) 01/30/19 04:00 Absolute Nucleated RBC 0.1 /100WBC 01/30/19 04:00 Sodium 139 mmol/L (136-145) 01/30/19 04:00 Corrected Sodium TNP 01/30/19 04:00 Potassium 4.1 mmol/L (3.5-5.1) 01/30/19 04:00 Chloride 106 mmol/L (98-107) 01/30/19 04:00 Carbon Dioxide 27.8 mmol/L (21-32) 01/30/19 04:00 BUN 15 mg/dL (7-18) 01/30/19 04:00 Creatinine 0.73 mg/dL (0.70-1.30) 01/30/19 04:00 Est GFR (MDRD) Af Amer > 60 (>60) 01/30/19 04:00 Est GFR (MDRD) Non-Af > 60 (>60) 01/30/19 04:00 Glucose 76 mg/dL (65-99) 01/30/19 04:00 Calcium 8.6 mg/dL (8.5-10.1) 01/30/19 04:00 Corrected Calcium 10.1 mg/dL (8.5-10.1) 01/30/19 04:00 Total Bilirubin 0.40 mg/dL (0.2-1.0) 01/30/19 04:00 AST 14 Units/L (15-37) L 01/30/19 04:00 ALT 15 Units/L (12-78) 01/30/19 04:00 Alkaline Phosphatase 122 Units/L (46-116) H 01/30/19 04:00 Total Protein 6.7 g/dL (6.4-8.2) 01/30/19 04:00 Albumin 2.1 g/dL (3.4-5.0) L 01/30/19 04:00 Globulin 4.6 g/dL (2.5-4.5) H 01/30/19 04:00 Albumin/Globulin Ratio 0.5 Ratio (1.1-2.1) L 01/30/19 04:00 - Plan (1) Fever Status: Acute Qualifiers: Fever type: unspecified Qualified Code(s): R50.9 - Fever, unspecified Plan: OBTAIN URINALYSIS, CONTINUE TO MONITOR
[2019-01-31] MEDS ORDERED: PHARMACY CONSULT - DOSE _____ XX SCH (12:00)
[2019-01-31] MEDS ORDERED: STERILE WATER IRRIGATION ONE (15:14)
[2019-02-01] MEDS: PATIENT'S HOME MEDICATION PO SCH ×6 (05:20→14:32)
[2019-02-01 08:19] VITALS: BP 85/46
[2019-02-01] MEDS: TYLENOL ELIXIR 325 MG UDC PO PRN ×2 (09:25→14:32)
--- NOTE | 2019-02-01 10:37 | RAD ---
History: Respiratory distress Study: AP chest Comparison: May 07, 2017 Findings: The heart size is prominent with a tortuous aorta. There is limited inspiration of the lungs with mild chronic appearing interstitial lung disease. No effusion is suggested. No significant bony abnormality is demonstrated. Impression: No definite acute cardiopulmonary disease Reported By:
[2019-02-01 13:15] LABS: BILIRUBIN,URINE NEGATIVE (NEGATIVE); BLOOD/HEMOGLOBIN,URINE 3+ (NEGATIVE); GLUCOSE, URINE NEGATIVE (NEGATIVE); KETONES,URINE NEGATIVE (NEGATIVE); LEUKOCYTE ESTERASE ,URINE 3+ (NEGATIVE); NITRITES,URINE NEGATIVE (NEGATIVE); PROTEIN,URINE 2+ (NEGATIVE); UROBILINOGEN,URINE 2+ (NORMAL)
[2019-02-01 13:19] LABS: APPEARANCE,URINE HAZY (CLEAR); COLOR,URINE DARK YELLOW (YELLOW)
[2019-02-01 13:40] LABS: AMORPHOUS SEDIMENT,UR TRACE /HPF (NEGATIVE); BACTERIA,URINE NEGATIVE /HPF (NEGATIVE); SQUAMOUS EPITHELIAL CELL,UR RARE /HPF (NEGATIVE)
[2019-02-01 13:41] LABS: MUCUS,URINE MANY /HPF (NEGATIVE)
== END 2019-02-01 14:00 | disposition short-term general hospital (02) | DRG 92 ==
LOC: MED/SURG 13:40
PROVIDERS: ADMIT Internal Medicine; ATTEND Internal Medicine
DX: F78 Other intellectual disabilities; R00.0 Tachycardia, unspecified; F41.8 Other specified anxiety disorders; G20 Parkinson's disease; G40.89 Other seizures; Z51.5 Encounter for palliative care; R47.01 Aphasia
CPT/HCPCS: J0696

== ENCOUNTER 2019-02-01 14:00 | Inpatient (IN) ==
[2019-02-01] MEDS: ROCEPHIN VIAL 1 GRAM IVP SCH (17:12)
[2019-02-01] MEDS: NS 1000 ML 1,000 ML IV SCH (17:13)
[2019-02-01 17:19] VITALS: BMI 16.4
[2019-02-01] MEDS: KEPPRA TAB 500 MG PO SCH (20:19)
[2019-02-01] MEDS: KLONOPIN TAB 1 MG PO SCH (20:19)
[2019-02-01] MEDS: ELAVIL PO SCH (20:20)
[2019-02-01] MEDS: COGENTIN TAB 1 MG PO SCH (20:21)
[2019-02-02 05:33] LABS: BASOPHILS % (AUTO) 0.7 % (0.2-1.0); EOSINOPHILS # (AUTO) 0.1 x10^3/uL (0.0-0.2); EOSINOPHILS % (AUTO) 2.5 % (0.9-2.9); HEMATOCRIT 28.8 % (42.0-54.0); HEMOGLOBIN 9.6 g/dL (13.5-18.0); LYMPHOCYTES # (AUTO) 1.6 X10^3/uL (1.3-2.9); MEAN CORPUSCULAR HEMOGLOBIN 28.6 pg (27.0-34.0); MEAN CORPUSCULAR HGB CONC 33.5 g/dL (33.0-35.0); MEAN CORPUSCULAR VOLUME 85.4 fL (80.0-100.0); MEAN PLATELET VOLUME 8.3 fL (7.4-11.0); MONOCYTES # (AUTO) 0.6 x10^3/uL (0.3-0.8); MONOCYTES % (AUTO) 11.4 % (0.0-13.0); NEUTROPHILS # (AUTO) 2.7 x10^3/uL (2.2-4.8); NEUTROPHILS % (AUTO) 53.4 % (42.0-75.0); PLATELET COUNT 143 X10^3/uL (150.0-450.0); RED BLOOD COUNT 3.37 X10^6/uL (4.7-6.0); RED CELL DISTRIBUTION WIDTH 15.8 % (11.6-16.5); WHITE BLOOD COUNT 5.1 X10^3/uL (3.6-10.0)
[2019-02-02] MEDS: NS 1000 ML 1,000 ML IV SCH ×2 (05:34→09:36)
[2019-02-02 05:45] LABS: ALANINE AMINOTRANSFERASE 18 Units/L (12-78); ALBUMIN 1.9 g/dL (3.4-5.0); ALKALINE PHOSPHATASE 101 Units/L (46-116); ASPARTATE AMINO TRANSFERASE 17 Units/L (15-37); BLOOD UREA NITROGEN 15 mg/dL (7-18); CALCIUM 8.2 mg/dL (8.5-10.1); CARBON DIOXIDE 26.2 mmol/L (21-32); CHLORIDE 109 mmol/L (98-107); COR CA(FOR HYPOALB) 9.9 mg/dL (8.5-10.1); CREATININE 0.68 mg/dL (0.70-1.30); SODIUM 142 mmol/L (136-145); TOTAL PROTEIN 6.2 g/dL (6.4-8.2); eGFR NON BLACK RACES > 60 (>60)
[2019-02-02] MEDS ORDERED: BUTT CREAM (COMPOUND) TOP PRN (08:13)
[2019-02-02] MEDS ORDERED: PERIACTIN TAB 4 MG PO PRN (08:13)
[2019-02-02] MEDS: ZyrTEC TAB 10 MG PO SCH (09:17)
[2019-02-02] MEDS: KEPPRA TAB 500 MG PO SCH ×2 (09:17→20:44)
[2019-02-02] MEDS: ROCEPHIN VIAL 1 GRAM IVP SCH (09:18)
[2019-02-02] MEDS: VITAMIN B-6 PO SCH (09:25)
[2019-02-02] MEDS: SENOKOT PO SCH ×2 (09:25→20:42)
[2019-02-02] MEDS: TYLENOL ELIXIR 325 MG UDC PO PRN ×2 (11:30→20:44)
[2019-02-02] MEDS: ALBUMIN HUMAN 25%- 100 ML 100 ML IV SCH (11:46)
--- NOTE | 2019-02-02 11:47 | DR.H&P ---
H&P - History & Physical for Day of: H&P Date: 02/01/19 - Chief Complaint Chief Complaint: FEVER, UTI - History of Present Illness History of Present Illness: IS A 58 YEAR OLD PATIENT OF OURS WHO HAS BEEN IN THE HOSPITAL UNDER [facility] FOR RESPIT CARE. HE IS MR AND IS USUALLY CARED FOR IN THE HOME WITH THIS FAMILY. DURING HIS VISIT, HE HAS BEEN FEBRILE. A URINALYSIS WAS OBTAINED AND REVEALED WBC TNTC, RBC 10-20, LEUKOCYTES 3+, BACTERIA NEGATIVE, OCCULT BLOOD 3+. URINE AND BLOOD CULTURES WERE OBTAINED AND ARE PENDING. HE WAS GIVEN A DOSE OF ROCEPHIN 1GM IM ON 01/30/19. WE CHANGED PATIENT FROM RESPIT CARE TO AN INPATIENT TODAY FOR URINARY TRACT INFECTION, FAILED PREVIOUS TREATMENT. WE WILL START ROCEPHIN 1G IV DAILY, IV FLUIDS, AND WILL RESUME HIS HOME MEDICATIONS. WE WILL FOLLOW UP WITH AM LABS AND CONTINUE TO MONITOR. - Past Medical History Past Medical History: Anxiety, Seizures Additional Medical History: Mental Retardation, Parkinson's, Mood Disorders - Past Surgical History Surgical History: Ortho Surgery - Family History Family Medical History: Coronary Artery Disease - Social History Alcohol Use: None Drug Use: None - Medications Home Medications: haloperidol [From Haldol] Allergy (Verified 03/08/17 18:41) - Review of Systems Constitutional: Fever, Weakness Eyes: No Symptoms Reported ENT: No Symptoms Reported Respiratory: No Symptoms Reported Cardiovascular: No Symptoms Reported Gastrointestinal: No Symptoms Reported Genitourinary: No Symptoms Reported Musculoskeletal: No Symptoms Reported Skin: No Symptoms Reported Neurological: Weakness - Physical Exam Vital Signs: Temperature 99.2 F Pulse Rate [Left] 82 Respiratory Rate 20 Blood Pressure [Right Calf] 181/80 Blood Pressure [Right Arm] 111/55 Blood Pressure [Left Arm] 96/71 Blood Pressure 85/46 O2 Sat by Pulse Oximetry 95 Oriented: Not Oriented Eyes: Normal Ear: Normal Nose: Normal Throat: Normal Respiratory: Diminished Throughout Cardiovascular: Normal : Normal Auscultation: Bowel Sounds: Normal Palpation: Normal Tenderness: Suprapubic, Mild. negative: Rebound, Guarding, Rigidity Skin: Normal Musculoskeletal: Normal Psychiatric: Normal Mood Description: Calm Affect: Normal Speech Pattern: Clear - Assessment/Plan (1) UTI (urinary tract infection) Qualifiers: Urinary tract infection type: acute cystitis Hematuria presence: without hematuria Qualified Code(s): N30.00 - Acute cystitis without hematuria Status: Acute Plan: ROCEPHIN 1G IV DAILY, IV FLUIDS, CONTINUE TO MONITOR (2) Fever Qualifiers: Fever type: unspecified Qualified Code(s): R50.9 - Fever, unspecified Status: Acute Plan: IV ANTIBIOTICS, BLOOD CULTURES, CONTINUE TO MONITOR (3) Mental retardation Status: Chronic (4) Mood disorder Status: Chronic Plan: CONTINUE HOME MEDS, CONTINUE TO MONITOR (5) Seizure disorder Status: Chronic Plan: CONTINUE HOME MEDS, CONTINUE TO MONITOR - Allergies Allergies/Adverse Reactions: Allergies Allergy/AdvReac Type Severity Reaction Status Date / Time haloperidol [From Haldol] Allergy Verified 03/08/17 18:41
[2019-02-02] MEDS: TYLENOL SUPP 650 MG PR PRN ×2 (14:55→17:20)
[2019-02-02] MEDS ORDERED: TYLENOL SUPP 650 MG ONE (15:00)
[2019-02-02] MEDS: KLONOPIN TAB 1 MG PO SCH (20:43)
[2019-02-02] MEDS: COGENTIN TAB 1 MG PO SCH (20:44)
[2019-02-02] MEDS: ELAVIL PO SCH (20:44)
[2019-02-03] MEDS: NS 1000 ML 1,000 ML IV SCH ×4 (00:46→21:14)
[2019-02-03 05:35] LABS: BASOPHILS % (AUTO) 0.7 % (0.2-1.0); EOSINOPHILS # (AUTO) 0.1 x10^3/uL (0.0-0.2); EOSINOPHILS % (AUTO) 2.6 % (0.9-2.9); HEMATOCRIT 26.4 % (42.0-54.0); HEMOGLOBIN 8.9 g/dL (13.5-18.0); LYMPHOCYTES % (AUTO) 40.1 % (21.0-51.0); MEAN CORPUSCULAR HEMOGLOBIN 29.2 pg (27.0-34.0); MEAN CORPUSCULAR HGB CONC 33.8 g/dL (33.0-35.0); MEAN CORPUSCULAR VOLUME 86.5 fL (80.0-100.0); MEAN PLATELET VOLUME 7.9 fL (7.4-11.0); MONOCYTES # (AUTO) 0.6 x10^3/uL (0.3-0.8); MONOCYTES % (AUTO) 11.6 % (0.0-13.0); NEUTROPHILS # (AUTO) 2.2 x10^3/uL (2.2-4.8); PLATELET COUNT 119 X10^3/uL (150.0-450.0); RED BLOOD COUNT 3.05 X10^6/uL (4.7-6.0)
[2019-02-03 05:50] LABS: ALANINE AMINOTRANSFERASE 20 Units/L (12-78); ALBUMIN 2.1 g/dL (3.4-5.0); ALKALINE PHOSPHATASE 97 Units/L (46-116); ASPARTATE AMINO TRANSFERASE 19 Units/L (15-37); BLOOD UREA NITROGEN 11 mg/dL (7-18); CALCIUM 8.1 mg/dL (8.5-10.1); CARBON DIOXIDE 23.4 mmol/L (21-32); CHLORIDE 112 mmol/L (98-107); COR CA(FOR HYPOALB) 9.6 mg/dL (8.5-10.1); CREATININE 0.57 mg/dL (0.70-1.30); SODIUM 142 mmol/L (136-145); TOTAL PROTEIN 5.9 g/dL (6.4-8.2); eGFR NON BLACK RACES > 60 (>60)
[2019-02-03] MEDS: KEPPRA TAB 500 MG PO SCH ×2 (08:43→21:13)
[2019-02-03] MEDS: SENOKOT PO SCH ×2 (08:43→21:12)
[2019-02-03] MEDS: ZyrTEC TAB 10 MG PO SCH (08:43)
[2019-02-03] MEDS: ALBUMIN HUMAN 25%- 100 ML 100 ML IV SCH (08:44)
[2019-02-03] MEDS: VITAMIN B-6 PO SCH (08:44)
[2019-02-03] MEDS: ROCEPHIN VIAL 1 GRAM IVP SCH (08:44)
[2019-02-03] MEDS ORDERED: PHARMACY CONSULT - DOSE _____ XX SCH (13:00)
[2019-02-03] MEDS: LEVAQUIN PREMIX IV 750 MG 750 MG/150 ML BAG IV SCH (15:10)
[2019-02-03] MEDS: ELAVIL PO SCH (21:12)
[2019-02-03] MEDS: NORCO 5/325 MG TAB PO PRN (21:12)
[2019-02-03] MEDS: COGENTIN TAB 1 MG PO SCH (21:13)
[2019-02-03] MEDS: KLONOPIN TAB 1 MG PO SCH (21:13)
[2019-02-03] MEDS: ATIVAN TAB 1 MG PO PRN (21:13)
[2019-02-03] MEDS: TYLENOL ELIXIR 325 MG UDC PO PRN (21:14)
--- NOTE | 2019-02-03 21:59 | PCM.PROG ---
Progress Note - Progress Note for Day of Date of Exam: 02/02/19 - Subjective Subjective: IS BEING TREATED FOR A URINARY TRACT INFECTION, FAILED OUTPATIENT TREATMENT, AND FEVER. TODAY, HE IS LYING IN BED WITH EYES CLOSED ON MORNING ROUNDS. ON EXAMINATION, HEART IS REGULAR IN RATE AND RHYTHM. BILATERAL LUNGS ARE NOTED WITH DIMINISHED LUNG SOUNDS THROUGHOUT. ABDOMEN IS ROUND, SOFT, AND NON-TENDER WITH NORMAL BOWEL SOUNDS NOTED IN ALL QUADRANTS. HIS VITALS THIS MORNING ARE 99.2-82-20-95%-96/71. LABS WERE OBTAINED. ABNORMAL LAB VALUES INCLUDE THE FOLLOWING: RBC 3.37, HGB 9.6, HCT 28.8, CHLORIDE 109, CREATININE 0.68, CALCIUM 8.2, TOTAL PROTEIN 6.2, ALBUMIN 1.9. URINE AND BLOOD CULTURES ARE PENDING. HE IS CURRENTLY RECEIVING ROCEPHIN 1G IV DAILY. WE WILL CONTINUE WITH CURRENT PLAN OF CARE TODAY. OTHERWISE, WE PLAN TO FOLLOW UP WITH AM LABS AND CONTINUE TO MONITOR. - Past Medical Family Social History Past Med/Fam/Surg Hx: No changes since H&P Allergies: Allergies haloperidol [From Haldol] Allergy (Verified 03/08/17 18:41) - Review of Systems ROS: No change since H&P - Vital Signs and I&O's Vital Signs: Temperature 101.3 F Pulse Rate [Left] 97 Respiratory Rate 20 Blood Pressure [Right Calf] 181/80 Blood Pressure [Right Arm] 107/53 Blood Pressure [Left Arm] 108/54 Blood Pressure 85/46 O2 Sat by Pulse Oximetry 96 Intake and Output: Intake & Output 02/01/19 02/02/19 02/03/19 02/04/19 11:59 11:59 11:59 11:59 Intake Total 892 / 892 1275 / 1275 600 / 600 Balance 892 / 892 1275 / 1275 600 / 600 - Physical Exam Oriented: Not Oriented Eyes: Normal Ear: Normal Nose: Normal Throat: Normal Cardiovascular: Normal : Normal Auscultation: Bowel Sounds: Normal Palpation: Normal Tenderness: Suprapubic, Mild. negative: Rebound, Guarding, Rigidity Skin: Normal Musculoskeletal: Normal Psychiatric: Normal Mood Description: Calm Affect: Normal Speech Pattern: Aphasic - Laboratory and Diagnostics Result Diagrams: 02/03/19 05:10 02/03/19 05:10 Labs: Laboratory WBC 5.0 X10^3/uL (3.6-10.0) 02/03/19 05:10 RBC 3.05 X10^6/uL (4.7-6.0) L 02/03/19 05:10 Hgb 8.9 g/dL (13.5-18.0) L 02/03/19 05:10 Hct 26.4 % (42.0-54.0) L 02/03/19 05:10 MCV 86.5 fL (80.0-100.0) 02/03/19 05:10 MCH 29.2 pg (27.0-34.0) 02/03/19 05:10 MCHC 33.8 g/dL (33.0-35.0) 02/03/19 05:10 RDW 16.0 % (11.6-16.5) 02/03/19 05:10 Plt Count 119 X10^3/uL (150.0-450.0) L 02/03/19 05:10 MPV 7.9 fL (7.4-11.0) 02/03/19 05:10 Neut % (Auto) 45.0 % (42.0-75.0) 02/03/19 05:10 Lymph % (Auto) 40.1 % (21.0-51.0) 02/03/19 05:10 [place] % (Auto) 11.6 % (0.0-13.0) 02/03/19 05:10 Eos % (Auto) 2.6 % (0.9-2.9) 02/03/19 05:10 Baso % (Auto) 0.7 % (0.2-1.0) 02/03/19 05:10 Neut # (Auto) 2.2 x10^3/uL (2.2-4.8) 02/03/19 05:10 Lymph # (Auto) 2.0 X10^3/uL (1.3-2.9) 02/03/19 05:10 [place] # (Auto) 0.6 x10^3/uL (0.3-0.8) 02/03/19 05:10 Eos # (Auto) 0.1 x10^3/uL (0.0-0.2) 02/03/19 05:10 Baso # (Auto) 0.0 X10^3/uL (0.0-0.1) 02/03/19 05:10 Absolute Nucleated RBC 0.1 /100WBC 02/03/19 05:10 Sodium 142 mmol/L (136-145) 02/03/19 05:10 Corrected Sodium TNP 02/03/19 05:10 Potassium 3.6 mmol/L (3.5-5.1) 02/03/19 05:10 Chloride 112 mmol/L (98-107) H 02/03/19 05:10 Carbon Dioxide 23.4 mmol/L (21-32) 02/03/19 05:10 BUN 11 mg/dL (7-18) 02/03/19 05:10 Creatinine 0.57 mg/dL (0.70-1.30) L 02/03/19 05:10 Est GFR (MDRD) Af Amer > 60 (>60) 02/03/19 05:10 Est GFR (MDRD) Non-Af > 60 (>60) 02/03/19 05:10 Glucose 74 mg/dL (65-99) 02/03/19 05:10 Calcium 8.1 mg/dL (8.5-10.1) L 02/03/19 05:10 Corrected Calcium 9.6 mg/dL (8.5-10.1) 02/03/19 05:10 Total Bilirubin 0.30 mg/dL (0.2-1.0) 02/03/19 05:10 AST 19 Units/L (15-37) 02/03/19 05:10 ALT 20 Units/L (12-78) 02/03/19 05:10 Alkaline Phosphatase 97 Units/L (46-116) 02/03/19 05:10 Total Protein 5.9 g/dL (6.4-8.2) L 02/03/19 05:10 Albumin 2.1 g/dL (3.4-5.0) L 02/03/19 05:10 Globulin 3.8 g/dL (2.5-4.5) 02/03/19 05:10 Albumin/Globulin Ratio 0.6 Ratio (1.1-2.1) L 02/03/19 05:10 - Plan (1) UTI (urinary tract infection) Status: Acute Qualifiers: Urinary tract infection type: acute cystitis Hematuria presence: without hematuria Qualified Code(s): N30.00 - Acute cystitis without hematuria Plan: ROCEPHIN 1G IV DAILY, IV FLUIDS, CONTINUE TO MONITOR (2) Fever Status: Acute Qualifiers: Fever type: unspecified Qualified Code(s): R50.9 - Fever, unspecified Plan: IV ANTIBIOTICS, BLOOD CULTURES, CONTINUE TO MONITOR (3) Mental retardation Status: Chronic (4) Mood disorder Status: Chronic Plan: CONTINUE HOME MEDS, CONTINUE TO MONITOR (5) Seizure disorder Status: Chronic Plan: CONTINUE HOME MEDS, CONTINUE TO MONITOR
[2019-02-04 05:42] LABS: BASOPHILS # (AUTO) 0.1 X10^3/uL (0.0-0.1); BASOPHILS % (AUTO) 1.1 % (0.2-1.0); EOSINOPHILS # (AUTO) 0.2 x10^3/uL (0.0-0.2); EOSINOPHILS % (AUTO) 2.8 % (0.9-2.9); HEMATOCRIT 26.7 % (42.0-54.0); HEMOGLOBIN 8.9 g/dL (13.5-18.0); LYMPHOCYTES # (AUTO) 2.1 X10^3/uL (1.3-2.9); LYMPHOCYTES % (AUTO) 37.3 % (21.0-51.0); MEAN CORPUSCULAR HEMOGLOBIN 28.7 pg (27.0-34.0); MEAN CORPUSCULAR HGB CONC 33.5 g/dL (33.0-35.0); MEAN CORPUSCULAR VOLUME 85.8 fL (80.0-100.0); MEAN PLATELET VOLUME 8.3 fL (7.4-11.0); MONOCYTES # (AUTO) 0.6 x10^3/uL (0.3-0.8); NEUTROPHILS # (AUTO) 2.6 x10^3/uL (2.2-4.8); NEUTROPHILS % (AUTO) 47.8 % (42.0-75.0); PLATELET COUNT 132 X10^3/uL (150.0-450.0); RED BLOOD COUNT 3.11 X10^6/uL (4.7-6.0); WHITE BLOOD COUNT 5.5 X10^3/uL (3.6-10.0)
[2019-02-04 06:02] LABS: ALANINE AMINOTRANSFERASE 21 Units/L (12-78); ALBUMIN 2.2 g/dL (3.4-5.0); ALKALINE PHOSPHATASE 89 Units/L (46-116); ASPARTATE AMINO TRANSFERASE 22 Units/L (15-37); BLOOD UREA NITROGEN 8 mg/dL (7-18); CALCIUM 8.3 mg/dL (8.5-10.1); CARBON DIOXIDE 26.5 mmol/L (21-32); CHLORIDE 111 mmol/L (98-107); COR CA(FOR HYPOALB) 9.7 mg/dL (8.5-10.1); CREATININE 0.59 mg/dL (0.70-1.30); SODIUM 143 mmol/L (136-145); TOTAL PROTEIN 6.1 g/dL (6.4-8.2); eGFR NON BLACK RACES > 60 (>60)
[2019-02-04] MEDS: LEVAQUIN PREMIX IV 750 MG 750 MG/150 ML BAG IV SCH (08:45)
[2019-02-04] MEDS: ALBUMIN HUMAN 25%- 100 ML 100 ML IV SCH (08:45)
[2019-02-04] MEDS: VITAMIN B-6 PO SCH (08:47)
[2019-02-04] MEDS: KEPPRA TAB 500 MG PO SCH ×2 (08:47→21:32)
[2019-02-04] MEDS: ROCEPHIN VIAL 1 GRAM IVP SCH (08:47)
[2019-02-04] MEDS: SENOKOT PO SCH ×2 (08:47→21:32)
[2019-02-04] MEDS: ZyrTEC TAB 10 MG PO SCH (08:48)
[2019-02-04] MEDS: NS 1000 ML 1,000 ML IV SCH ×2 (16:21→20:30)
[2019-02-04] MEDS: ELAVIL PO SCH (21:32)
[2019-02-04] MEDS: COGENTIN TAB 1 MG PO SCH (21:32)
[2019-02-04] MEDS: KLONOPIN TAB 1 MG PO SCH (21:32)
[2019-02-05] MEDS: NS 1000 ML 1,000 ML IV SCH ×3 (02:01→22:18)
[2019-02-05 06:25] LABS: BASOPHILS % (AUTO) 0.6 % (0.2-1.0); EOSINOPHILS # (AUTO) 0.2 x10^3/uL (0.0-0.2); EOSINOPHILS % (AUTO) 2.5 % (0.9-2.9); HEMATOCRIT 27.3 % (42.0-54.0); HEMOGLOBIN 9.2 g/dL (13.5-18.0); LYMPHOCYTES # (AUTO) 2.5 X10^3/uL (1.3-2.9); LYMPHOCYTES % (AUTO) 42.5 % (21.0-51.0); MEAN CORPUSCULAR HEMOGLOBIN 28.8 pg (27.0-34.0); MEAN CORPUSCULAR HGB CONC 33.7 g/dL (33.0-35.0); MEAN CORPUSCULAR VOLUME 85.5 fL (80.0-100.0); MEAN PLATELET VOLUME 8.2 fL (7.4-11.0); MONOCYTES # (AUTO) 0.7 x10^3/uL (0.3-0.8); MONOCYTES % (AUTO) 11.3 % (0.0-13.0); NEUTROPHILS # (AUTO) 2.6 x10^3/uL (2.2-4.8); NEUTROPHILS % (AUTO) 43.1 % (42.0-75.0); PLATELET COUNT 145 X10^3/uL (150.0-450.0); RED BLOOD COUNT 3.19 X10^6/uL (4.7-6.0); RED CELL DISTRIBUTION WIDTH 16.1 % (11.6-16.5)
[2019-02-05 06:45] LABS: ALANINE AMINOTRANSFERASE 20 Units/L (12-78); ALBUMIN 2.6 g/dL (3.4-5.0); ALKALINE PHOSPHATASE 93 Units/L (46-116); ASPARTATE AMINO TRANSFERASE 18 Units/L (15-37); BLOOD UREA NITROGEN 8 mg/dL (7-18); CALCIUM 8.5 mg/dL (8.5-10.1); CARBON DIOXIDE 25.5 mmol/L (21-32); CHLORIDE 109 mmol/L (98-107); COR CA(FOR HYPOALB) 9.6 mg/dL (8.5-10.1); CREATININE 0.57 mg/dL (0.70-1.30); SODIUM 141 mmol/L (136-145); TOTAL PROTEIN 6.4 g/dL (6.4-8.2); eGFR NON BLACK RACES > 60 (>60)
[2019-02-05] MEDS: LEVAQUIN PREMIX IV 750 MG 750 MG/150 ML BAG IV SCH (09:36)
[2019-02-05] MEDS: ALBUMIN HUMAN 25%- 100 ML 100 ML IV SCH (09:36)
[2019-02-05] MEDS: CIPRO IV 400 MG PREMIX* 400 MG/200 ML IV.SOLN. IV SCH ×3 (09:36→21:56)
[2019-02-05] MEDS: VITAMIN B-6 PO SCH (09:38)
[2019-02-05] MEDS: KEPPRA TAB 500 MG PO SCH ×2 (09:38→21:56)
[2019-02-05] MEDS: SENOKOT PO SCH ×2 (09:38→21:56)
[2019-02-05] MEDS: ZyrTEC TAB 10 MG PO SCH (09:38)
[2019-02-05] MEDS: NORCO 5/325 MG TAB PO PRN (09:45)
[2019-02-05] MEDS: COGENTIN TAB 1 MG PO SCH (21:56)
[2019-02-05] MEDS: KLONOPIN TAB 1 MG PO SCH (21:56)
[2019-02-05] MEDS: ELAVIL PO SCH (21:56)
--- NOTE | 2019-02-05 23:08 | PCM.PROG ---
Progress Note - Progress Note for Day of Date of Exam: 02/03/19 - Subjective Subjective: IS BEING TREATED FOR A URINARY TRACT INFECTION, FAILED OUTPATIENT TREATMENT, AND FEVER. TODAY, HE IS LYING IN BED WITH EYES CLOSED ON MORNING ROUNDS. ON EXAMINATION, HEART IS REGULAR IN RATE AND RHYTHM. BILATERAL LUNGS ARE NOTED WITH DIMINISHED LUNG SOUNDS THROUGHOUT. ABDOMEN IS ROUND, SOFT, AND NON-TENDER WITH NORMAL BOWEL SOUNDS NOTED IN ALL QUADRANTS. HIS VITALS THIS MORNING ARE 97.6-63-20-99%-115/59. LABS WERE OBTAINED. ABNORMAL LAB VALUES INCLUDE THE FOLLOWING: RBC 3.11, HGB 8.9, HCT 26.7, PLT COUNT 132, CHLORIDE 112, CREATININE 0.57, CALCIUM 8.1, TOTAL PROTEIN 5.9, ALBUMIN 2.1. URINE AND BLOOD CULTURES ARE PENDING. HE IS CURRENTLY RECEIVING ROCEPHIN 1G IV DAILY. WE WILL CONTINUE WITH CURRENT PLAN OF CARE TODAY. OTHERWISE, WE PLAN TO FOLLOW UP WITH AM LABS AND CONTINUE TO MONITOR. - Past Medical Family Social History Past Med/Fam/Surg Hx: No changes since H&P Allergies: Allergies haloperidol [From Haldol] Allergy (Verified 03/08/17 18:41) - Review of Systems ROS: No change since H&P - Vital Signs and I&O's Vital Signs: Temperature 98.8 F Pulse Rate [Right Brachial] 76 Pulse Rate [Left] 69 Respiratory Rate 20 Blood Pressure [Right Calf] 181/80 Blood Pressure [Right Arm] 90/42 Blood Pressure [Left Arm] 108/54 Blood Pressure 85/46 O2 Sat by Pulse Oximetry 97 Intake and Output: Intake & Output 02/03/19 02/04/19 02/05/19 02/06/19 11:59 11:59 11:59 11:59 Intake Total 1275 / 1275 1320 / 1320 950 / 950 1760 / 1760 Balance 1275 / 1275 1320 / 1320 950 / 950 1760 / 1760 - Physical Exam Oriented: Not Oriented Eyes: Normal Ear: Normal Nose: Normal Throat: Normal Cardiovascular: Normal : Normal Auscultation: Bowel Sounds: Normal Palpation: Normal Tenderness: Suprapubic, Mild. negative: Rebound, Guarding, Rigidity Skin: Normal Musculoskeletal: Normal Psychiatric: Normal Mood Description: Calm Affect: Normal Speech Pattern: Aphasic - Laboratory and Diagnostics Result Diagrams: 02/05/19 05:20 02/05/19 05:20 Labs: 02/02/19 14:40 Blood Blood Culture - Final Enterococcus Faecalis 02/02/19 14:35 Blood Blood Culture - Final Enterococcus Faecalis Laboratory WBC 6.0 X10^3/uL (3.6-10.0) 02/05/19 05:20 RBC 3.19 X10^6/uL (4.7-6.0) L 02/05/19 05:20 Hgb 9.2 g/dL (13.5-18.0) L 02/05/19 05:20 Hct 27.3 % (42.0-54.0) L 02/05/19 05:20 MCV 85.5 fL (80.0-100.0) 02/05/19 05:20 MCH 28.8 pg (27.0-34.0) 02/05/19 05:20 MCHC 33.7 g/dL (33.0-35.0) 02/05/19 05:20 RDW 16.1 % (11.6-16.5) 02/05/19 05:20 Plt Count 145 X10^3/uL (150.0-450.0) L 02/05/19 05:20 MPV 8.2 fL (7.4-11.0) 02/05/19 05:20 Neut % (Auto) 43.1 % (42.0-75.0) 02/05/19 05:20 Lymph % (Auto) 42.5 % (21.0-51.0) 02/05/19 05:20 [place] % (Auto) 11.3 % (0.0-13.0) 02/05/19 05:20 Eos % (Auto) 2.5 % (0.9-2.9) 02/05/19 05:20 Baso % (Auto) 0.6 % (0.2-1.0) 02/05/19 05:20 Neut # (Auto) 2.6 x10^3/uL (2.2-4.8) 02/05/19 05:20 Lymph # (Auto) 2.5 X10^3/uL (1.3-2.9) 02/05/19 05:20 [place] # (Auto) 0.7 x10^3/uL (0.3-0.8) 02/05/19 05:20 Eos # (Auto) 0.2 x10^3/uL (0.0-0.2) 02/05/19 05:20 Baso # (Auto) 0.0 X10^3/uL (0.0-0.1) 02/05/19 05:20 Absolute Nucleated RBC 0.0 /100WBC 02/05/19 05:20 Sodium 141 mmol/L (136-145) 02/05/19 05:20 Corrected Sodium TNP 02/05/19 05:20 Potassium 4.0 mmol/L (3.5-5.1) 02/05/19 05:20 Chloride 109 mmol/L (98-107) H 02/05/19 05:20 Carbon Dioxide 25.5 mmol/L (21-32) 02/05/19 05:20 BUN 8 mg/dL (7-18) 02/05/19 05:20 Creatinine 0.57 mg/dL (0.70-1.30) L 02/05/19 05:20 Est GFR (MDRD) Af Amer > 60 (>60) 02/05/19 05:20 Est GFR (MDRD) Non-Af > 60 (>60) 02/05/19 05:20 Glucose 75 mg/dL (65-99) 02/05/19 05:20 Calcium 8.5 mg/dL (8.5-10.1) 02/05/19 05:20 Corrected Calcium 9.6 mg/dL (8.5-10.1) 02/05/19 05:20 Total Bilirubin 0.30 mg/dL (0.2-1.0) 02/05/19 05:20 AST 18 Units/L (15-37) 02/05/19 05:20 ALT 20 Units/L (12-78) 02/05/19 05:20 Alkaline Phosphatase 93 Units/L (46-116) 02/05/19 05:20 Total Protein 6.4 g/dL (6.4-8.2) 02/05/19 05:20 Albumin 2.6 g/dL (3.4-5.0) L 02/05/19 05:20 Globulin 3.8 g/dL (2.5-4.5) 02/05/19 05:20 Albumin/Globulin Ratio 0.7 Ratio (1.1-2.1) L 02/05/19 05:20 - Plan (1) UTI (urinary tract infection) Status: Acute Qualifiers: Urinary tract infection type: acute cystitis Hematuria presence: without hematuria Qualified Code(s): N30.00 - Acute cystitis without hematuria Plan: ROCEPHIN 1G IV DAILY, IV FLUIDS, CONTINUE TO MONITOR (2) Fever Status: Acute Qualifiers: Fever type: unspecified Qualified Code(s): R50.9 - Fever, unspecified Plan: IV ANTIBIOTICS, BLOOD CULTURES, CONTINUE TO MONITOR (3) Mental retardation Status: Chronic (4) Mood disorder Status: Chronic Plan: CONTINUE HOME MEDS, CONTINUE TO MONITOR (5) Seizure disorder Status: Chronic Plan: CONTINUE HOME MEDS, CONTINUE TO MONITOR
[2019-02-06] MEDS: NS 1000 ML 1,000 ML IV SCH ×2 (02:22→20:53)
[2019-02-06 06:08] LABS: BASOPHILS % (AUTO) 0.6 % (0.2-1.0); EOSINOPHILS # (AUTO) 0.2 x10^3/uL (0.0-0.2); EOSINOPHILS % (AUTO) 2.9 % (0.9-2.9); HEMATOCRIT 25.9 % (42.0-54.0); HEMOGLOBIN 8.8 g/dL (13.5-18.0); LYMPHOCYTES % (AUTO) 37.4 % (21.0-51.0); MEAN CORPUSCULAR HEMOGLOBIN 28.6 pg (27.0-34.0); MEAN CORPUSCULAR HGB CONC 33.9 g/dL (33.0-35.0); MEAN CORPUSCULAR VOLUME 84.3 fL (80.0-100.0); MEAN PLATELET VOLUME 7.8 fL (7.4-11.0); MONOCYTES # (AUTO) 0.6 x10^3/uL (0.3-0.8); MONOCYTES % (AUTO) 10.2 % (0.0-13.0); NEUTROPHILS # (AUTO) 2.7 x10^3/uL (2.2-4.8); NEUTROPHILS % (AUTO) 48.9 % (42.0-75.0); PLATELET COUNT 156 X10^3/uL (150.0-450.0); RED BLOOD COUNT 3.08 X10^6/uL (4.7-6.0); RED CELL DISTRIBUTION WIDTH 16.2 % (11.6-16.5); WHITE BLOOD COUNT 5.4 X10^3/uL (3.6-10.0)
[2019-02-06 06:31] LABS: ALBUMIN 2.8 g/dL (3.4-5.0); ASPARTATE AMINO TRANSFERASE 15 Units/L (15-37); BLOOD UREA NITROGEN 6 mg/dL (7-18); CHLORIDE 109 mmol/L (98-107); SODIUM 143 mmol/L (136-145); eGFR NON BLACK RACES > 60 (>60)
[2019-02-06 06:47] LABS: ALANINE AMINOTRANSFERASE 20 Units/L (12-78); ALKALINE PHOSPHATASE 90 Units/L (46-116); CALCIUM 8.8 mg/dL (8.5-10.1); CARBON DIOXIDE 26.1 mmol/L (21-32); COR CA(FOR HYPOALB) 9.8 mg/dL (8.5-10.1); CREATININE 0.64 mg/dL (0.70-1.30); TOTAL PROTEIN 6.5 g/dL (6.4-8.2)
[2019-02-06] MEDS: ATIVAN TAB 1 MG PO PRN (09:24)
[2019-02-06] MEDS: SENOKOT PO SCH ×2 (09:25→20:54)
[2019-02-06] MEDS: LEVAQUIN PREMIX IV 750 MG 750 MG/150 ML BAG IV SCH (09:25)
[2019-02-06] MEDS: VITAMIN B-6 PO SCH (09:25)
[2019-02-06] MEDS: ALBUMIN HUMAN 25%- 100 ML 100 ML IV SCH (09:25)
[2019-02-06] MEDS: KEPPRA TAB 500 MG PO SCH ×2 (09:25→20:54)
[2019-02-06] MEDS: CIPRO IV 400 MG PREMIX* 400 MG/200 ML IV.SOLN. IV SCH ×2 (09:25→20:54)
[2019-02-06] MEDS: ZyrTEC TAB 10 MG PO SCH (09:25)
--- NOTE | 2019-02-06 19:17 | PCM.PROG ---
Progress Note - Progress Note for Day of Date of Exam: 02/04/19 - Subjective Subjective: IS BEING TREATED FOR SEPSIS, URINARY TRACT INFECTION, FAILED OUTPATIENT TREATMENT, AND FEVER. TODAY, HE IS LYING IN BED WITH EYES CLOSED ON MORNING ROUNDS. ON EXAMINATION, HEART IS REGULAR IN RATE AND RHYTHM. BILATERAL LUNGS ARE NOTED WITH DIMINISHED LUNG SOUNDS THROUGHOUT. ABDOMEN IS ROUND, SOFT, AND NON-TENDER WITH NORMAL BOWEL SOUNDS NOTED IN ALL QUADRANTS. HIS VITALS THIS MORNING ARE 98.1-60-20-94%-88/46. LABS WERE OBTAINED. ABNORMAL LAB VALUES INCLUDE THE FOLLOWING: RBC 3.11, HGB 8.9, HCT 26.7, PLT COUNT 132, CHLORIDE 111, CREATININE 0.59, CALCIUM 8.3, TOTAL PROTEIN 6.1, ALBUMIN 2.2. BLOOD CULTURES REPORT GROWTH OF ENTEROCOCCUS FAECALIS. HE IS CURRENTLY RECEIVING ROCEPHIN 1G IV DAILY. WE WILL DISCONTINUE THE ROCEPHIN AND START CIPRO 400MG IV Q12H. OTHERWISE, WE WILL CONTINUE WITH CURRENT PLAN OF CARE TODAY. WE PLAN TO FOLLOW UP WITH AM LABS AND CONTINUE TO MONITOR. - Past Medical Family Social History Past Med/Fam/Surg Hx: No changes since H&P Allergies: Allergies haloperidol [From Haldol] Allergy (Verified 03/08/17 18:41) - Review of Systems ROS: No change since H&P - Vital Signs and I&O's Vital Signs: Temperature 98.5 F Pulse Rate [Right Brachial] 71 Pulse Rate [Left] 69 Respiratory Rate 18 Blood Pressure [Right Calf] 181/80 Blood Pressure [Right Arm] 108/56 Blood Pressure [Left Arm] 108/54 Blood Pressure 85/46 O2 Sat by Pulse Oximetry 97 Intake and Output: Intake & Output 02/04/19 02/05/19 02/06/19 02/07/19 11:59 11:59 11:59 11:59 Intake Total 1320 / 1320 950 / 950 2450 / 2450 1500 / 1500 Balance 1320 / 1320 950 / 950 2450 / 2450 1500 / 1500 - Physical Exam Oriented: Not Oriented Eyes: Normal Ear: Normal Nose: Normal Throat: Normal Cardiovascular: Normal : Normal Auscultation: Bowel Sounds: Normal Palpation: Normal Tenderness: Suprapubic, Mild. negative: Rebound, Guarding, Rigidity Skin: Normal Musculoskeletal: Normal Psychiatric: Normal Mood Description: Calm Affect: Normal Speech Pattern: Aphasic - Laboratory and Diagnostics Result Diagrams: 02/06/19 05:35 02/06/19 05:35 Labs: 02/02/19 14:40 Blood Blood Culture - Final Enterococcus Faecalis 02/02/19 14:35 Blood Blood Culture - Final Enterococcus Faecalis Laboratory WBC 5.4 X10^3/uL (3.6-10.0) 02/06/19 05:35 RBC 3.08 X10^6/uL (4.7-6.0) L 02/06/19 05:35 Hgb 8.8 g/dL (13.5-18.0) L 02/06/19 05:35 Hct 25.9 % (42.0-54.0) L 02/06/19 05:35 MCV 84.3 fL (80.0-100.0) 02/06/19 05:35 MCH 28.6 pg (27.0-34.0) 02/06/19 05:35 MCHC 33.9 g/dL (33.0-35.0) 02/06/19 05:35 RDW 16.2 % (11.6-16.5) 02/06/19 05:35 Plt Count 156 X10^3/uL (150.0-450.0) 02/06/19 05:35 MPV 7.8 fL (7.4-11.0) 02/06/19 05:35 Neut % (Auto) 48.9 % (42.0-75.0) 02/06/19 05:35 Lymph % (Auto) 37.4 % (21.0-51.0) 02/06/19 05:35 [place] % (Auto) 10.2 % (0.0-13.0) 02/06/19 05:35 Eos % (Auto) 2.9 % (0.9-2.9) 02/06/19 05:35 Baso % (Auto) 0.6 % (0.2-1.0) 02/06/19 05:35 Neut # (Auto) 2.7 x10^3/uL (2.2-4.8) 02/06/19 05:35 Lymph # (Auto) 2.0 X10^3/uL (1.3-2.9) 02/06/19 05:35 [place] # (Auto) 0.6 x10^3/uL (0.3-0.8) 02/06/19 05:35 Eos # (Auto) 0.2 x10^3/uL (0.0-0.2) 02/06/19 05:35 Baso # (Auto) 0.0 X10^3/uL (0.0-0.1) 02/06/19 05:35 Absolute Nucleated RBC 0.1 /100WBC 02/06/19 05:35 Sodium 143 mmol/L (136-145) 02/06/19 05:35 Corrected Sodium TNP 02/06/19 05:35 Potassium 3.6 mmol/L (3.5-5.1) 02/06/19 05:35 Chloride 109 mmol/L (98-107) H 02/06/19 05:35 Carbon Dioxide 26.1 mmol/L (21-32) 02/06/19 05:35 BUN 6 mg/dL (7-18) L 02/06/19 05:35 Creatinine 0.64 mg/dL (0.70-1.30) L 02/06/19 05:35 Est GFR (MDRD) Af Amer > 60 (>60) 02/06/19 05:35 Est GFR (MDRD) Non-Af > 60 (>60) 02/06/19 05:35 Glucose 82 mg/dL (65-99) 02/06/19 05:35 Calcium 8.8 mg/dL (8.5-10.1) 02/06/19 05:35 Corrected Calcium 9.8 mg/dL (8.5-10.1) 02/06/19 05:35 Total Bilirubin 0.40 mg/dL (0.2-1.0) 02/06/19 05:35 AST 15 Units/L (15-37) 02/06/19 05:35 ALT 20 Units/L (12-78) 02/06/19 05:35 Alkaline Phosphatase 90 Units/L (46-116) 02/06/19 05:35 Total Protein 6.5 g/dL (6.4-8.2) 02/06/19 05:35 Albumin 2.8 g/dL (3.4-5.0) L 02/06/19 05:35 Globulin 3.7 g/dL (2.5-4.5) 02/06/19 05:35 Albumin/Globulin Ratio 0.8 Ratio (1.1-2.1) L 02/06/19 05:35 - Plan (1) UTI (urinary tract infection) Status: Acute Qualifiers: Urinary tract infection type: acute cystitis Hematuria presence: without hematuria Qualified Code(s): N30.00 - Acute cystitis without hematuria Plan: CIPRO 400MG IV Q12H, IV FLUIDS, CONTINUE TO MONITOR (2) Fever Status: Acute Qualifiers: Fever type: unspecified Qualified Code(s): R50.9 - Fever, unspecified Plan: IV ANTIBIOTICS, BLOOD CULTURES, CONTINUE TO MONITOR (3) Mental retardation Status: Chronic (4) Mood disorder Status: Chronic Plan: CONTINUE HOME MEDS, CONTINUE TO MONITOR (5) Seizure disorder Status: Chronic Plan: CONTINUE HOME MEDS, CONTINUE TO MONITOR
[2019-02-06] MEDS: ELAVIL PO SCH (20:54)
[2019-02-06] MEDS: KLONOPIN TAB 1 MG PO SCH (20:54)
[2019-02-06] MEDS: COGENTIN TAB 1 MG PO SCH (20:54)
--- NOTE | 2019-02-06 21:48 | PCM.PROG ---
Progress Note - Progress Note for Day of Date of Exam: 02/05/19 - Subjective Subjective: IS BEING TREATED FOR SEPSIS, URINARY TRACT INFECTION, FAILED OUTPATIENT TREATMENT, AND FEVER. TODAY, HE IS LYING IN BED WITH EYES CLOSED ON MORNING ROUNDS. ON EXAMINATION, HEART IS REGULAR IN RATE AND RHYTHM. BILATERAL LUNGS ARE NOTED WITH DIMINISHED LUNG SOUNDS THROUGHOUT. ABDOMEN IS ROUND, SOFT, AND NON-TENDER WITH NORMAL BOWEL SOUNDS NOTED IN ALL QUADRANTS. HIS VITALS THIS MORNING ARE 97.8-61-18-96%-105/52. LABS WERE OBTAINED. ABNORMAL LAB VALUES INCLUDE THE FOLLOWING: RBC 3.19, HGB 9.2, HCT 27.3, PLT COUNT 145, CHLORIDE 109, CREATININE 0.57, ALBUMIN 2.6. BLOOD CULTURES REPORT GROWTH OF ENTEROCOCCUS FAECALIS. HE IS CURRENTLY RECEIVING CIPRO 400MG IV Q12H. [facility] PLANS TO ADMIT PATIENT TO [facility] DUE TO THE FACT THAT THEY ARE UNABLE TO MEET HIS NEEDS ANYMORE. THIS IS PENDING APPROVAL. WE WILL CONTINUE WITH CURRENT PLAN OF CARE TODAY. WE PLAN TO FOLLOW UP WITH AM LABS AND CONTINUE TO MONITOR. - Past Medical Family Social History Past Med/Fam/Surg Hx: No changes since H&P Allergies: Allergies haloperidol [From Haldol] Allergy (Verified 03/08/17 18:41) - Review of Systems ROS: No change since H&P - Vital Signs and I&O's Vital Signs: Temperature 98.5 F Pulse Rate [Right Brachial] 71 Pulse Rate [Left] 69 Respiratory Rate 18 Blood Pressure [Right Calf] 181/80 Blood Pressure [Right Arm] 108/56 Blood Pressure [Left Arm] 108/54 Blood Pressure 85/46 O2 Sat by Pulse Oximetry 97 Intake and Output: Intake & Output 02/04/19 02/05/19 02/06/19 02/07/19 11:59 11:59 11:59 11:59 Intake Total 1320 / 1320 950 / 950 2450 / 2450 1500 / 1500 Balance 1320 / 1320 950 / 950 2450 / 2450 1500 / 1500 - Physical Exam Oriented: Not Oriented Eyes: Normal Ear: Normal Nose: Normal Throat: Normal Cardiovascular: Normal : Normal Auscultation: Bowel Sounds: Normal Tenderness: Suprapubic, Mild. negative: Rebound, Guarding, Rigidity Skin: Normal Musculoskeletal: Normal Psychiatric: Normal Mood Description: Calm Affect: Normal Speech Pattern: Aphasic - Laboratory and Diagnostics Result Diagrams: 02/06/19 05:35 02/06/19 05:35 Labs: 02/02/19 14:40 Blood Blood Culture - Final Enterococcus Faecalis 02/02/19 14:35 Blood Blood Culture - Final Enterococcus Faecalis Laboratory WBC 5.4 X10^3/uL (3.6-10.0) 02/06/19 05:35 RBC 3.08 X10^6/uL (4.7-6.0) L 02/06/19 05:35 Hgb 8.8 g/dL (13.5-18.0) L 02/06/19 05:35 Hct 25.9 % (42.0-54.0) L 02/06/19 05:35 MCV 84.3 fL (80.0-100.0) 02/06/19 05:35 MCH 28.6 pg (27.0-34.0) 02/06/19 05:35 MCHC 33.9 g/dL (33.0-35.0) 02/06/19 05:35 RDW 16.2 % (11.6-16.5) 02/06/19 05:35 Plt Count 156 X10^3/uL (150.0-450.0) 02/06/19 05:35 MPV 7.8 fL (7.4-11.0) 02/06/19 05:35 Neut % (Auto) 48.9 % (42.0-75.0) 02/06/19 05:35 Lymph % (Auto) 37.4 % (21.0-51.0) 02/06/19 05:35 [place] % (Auto) 10.2 % (0.0-13.0) 02/06/19 05:35 Eos % (Auto) 2.9 % (0.9-2.9) 02/06/19 05:35 Baso % (Auto) 0.6 % (0.2-1.0) 02/06/19 05:35 Neut # (Auto) 2.7 x10^3/uL (2.2-4.8) 02/06/19 05:35 Lymph # (Auto) 2.0 X10^3/uL (1.3-2.9) 02/06/19 05:35 [place] # (Auto) 0.6 x10^3/uL (0.3-0.8) 02/06/19 05:35 Eos # (Auto) 0.2 x10^3/uL (0.0-0.2) 02/06/19 05:35 Baso # (Auto) 0.0 X10^3/uL (0.0-0.1) 02/06/19 05:35 Absolute Nucleated RBC 0.1 /100WBC 02/06/19 05:35 Sodium 143 mmol/L (136-145) 02/06/19 05:35 Corrected Sodium TNP 02/06/19 05:35 Potassium 3.6 mmol/L (3.5-5.1) 02/06/19 05:35 Chloride 109 mmol/L (98-107) H 02/06/19 05:35 Carbon Dioxide 26.1 mmol/L (21-32) 02/06/19 05:35 BUN 6 mg/dL (7-18) L 02/06/19 05:35 Creatinine 0.64 mg/dL (0.70-1.30) L 02/06/19 05:35 Est GFR (MDRD) Af Amer > 60 (>60) 02/06/19 05:35 Est GFR (MDRD) Non-Af > 60 (>60) 02/06/19 05:35 Glucose 82 mg/dL (65-99) 02/06/19 05:35 Calcium 8.8 mg/dL (8.5-10.1) 02/06/19 05:35 Corrected Calcium 9.8 mg/dL (8.5-10.1) 02/06/19 05:35 Total Bilirubin 0.40 mg/dL (0.2-1.0) 02/06/19 05:35 AST 15 Units/L (15-37) 02/06/19 05:35 ALT 20 Units/L (12-78) 02/06/19 05:35 Alkaline Phosphatase 90 Units/L (46-116) 02/06/19 05:35 Total Protein 6.5 g/dL (6.4-8.2) 02/06/19 05:35 Albumin 2.8 g/dL (3.4-5.0) L 02/06/19 05:35 Globulin 3.7 g/dL (2.5-4.5) 02/06/19 05:35 Albumin/Globulin Ratio 0.8 Ratio (1.1-2.1) L 02/06/19 05:35 - Plan (1) UTI (urinary tract infection) Status: Acute Qualifiers: Urinary tract infection type: acute cystitis Hematuria presence: without hematuria Qualified Code(s): N30.00 - Acute cystitis without hematuria Plan: CIPRO 400MG IV Q12H, IV FLUIDS, CONTINUE TO MONITOR (2) Fever Status: Acute Qualifiers: Fever type: unspecified Qualified Code(s): R50.9 - Fever, unspecified Plan: IV ANTIBIOTICS, BLOOD CULTURES, CONTINUE TO MONITOR (3) Mental retardation Status: Chronic (4) Mood disorder Status: Chronic Plan: CONTINUE HOME MEDS, CONTINUE TO MONITOR (5) Seizure disorder Status: Chronic Plan: CONTINUE HOME MEDS, CONTINUE TO MONITOR
[2019-02-07 06:11] LABS: BASOPHILS % (AUTO) 0.5 % (0.2-1.0); EOSINOPHILS # (AUTO) 0.2 x10^3/uL (0.0-0.2); EOSINOPHILS % (AUTO) 3.2 % (0.9-2.9); HEMATOCRIT 26.6 % (42.0-54.0); LYMPHOCYTES # (AUTO) 2.2 X10^3/uL (1.3-2.9); LYMPHOCYTES % (AUTO) 44.5 % (21.0-51.0); MEAN CORPUSCULAR HEMOGLOBIN 28.6 pg (27.0-34.0); MEAN CORPUSCULAR HGB CONC 34.1 g/dL (33.0-35.0); MEAN PLATELET VOLUME 7.7 fL (7.4-11.0); MONOCYTES # (AUTO) 0.5 x10^3/uL (0.3-0.8); NEUTROPHILS % (AUTO) 40.8 % (42.0-75.0); PLATELET COUNT 176 X10^3/uL (150.0-450.0); RED BLOOD COUNT 3.16 X10^6/uL (4.7-6.0); RED CELL DISTRIBUTION WIDTH 16.1 % (11.6-16.5); WHITE BLOOD COUNT 4.9 X10^3/uL (3.6-10.0)
[2019-02-07] MEDS: NS 1000 ML 1,000 ML IV SCH ×2 (06:14→22:26)
[2019-02-07 06:31] LABS: ALANINE AMINOTRANSFERASE 19 Units/L (12-78); ALKALINE PHOSPHATASE 88 Units/L (46-116); ASPARTATE AMINO TRANSFERASE 15 Units/L (15-37); BLOOD UREA NITROGEN 5 mg/dL (7-18); CALCIUM 8.9 mg/dL (8.5-10.1); CARBON DIOXIDE 26.3 mmol/L (21-32); CHLORIDE 108 mmol/L (98-107); COR CA(FOR HYPOALB) 9.7 mg/dL (8.5-10.1); SODIUM 142 mmol/L (136-145); TOTAL PROTEIN 6.5 g/dL (6.4-8.2); eGFR NON BLACK RACES > 60 (>60)
[2019-02-07] MEDS: LEVAQUIN PREMIX IV 750 MG 750 MG/150 ML BAG IV SCH (09:25)
[2019-02-07] MEDS: ALBUMIN HUMAN 25%- 100 ML 100 ML IV SCH (09:25)
[2019-02-07] MEDS: VITAMIN B-6 PO SCH (09:28)
[2019-02-07] MEDS: KEPPRA TAB 500 MG PO SCH ×2 (09:28→20:52)
[2019-02-07] MEDS: SENOKOT PO SCH ×2 (09:28→20:53)
[2019-02-07] MEDS: ZyrTEC TAB 10 MG PO SCH (09:29)
--- NOTE | 2019-02-07 19:15 | PCM.PROG ---
Progress Note - Progress Note for Day of Date of Exam: 02/06/19 - Subjective Subjective: IS BEING TREATED FOR SEPSIS, URINARY TRACT INFECTION, FAILED OUTPATIENT TREATMENT, AND FEVER. TODAY, HE IS LYING IN BED WITH EYES CLOSED ON MORNING ROUNDS. HE HAS BEEN AFEBRILE. ON EXAMINATION, HEART IS REGULAR IN RATE AND RHYTHM. BILATERAL LUNGS ARE NOTED WITH DIMINISHED LUNG SOUNDS THROUGHOUT. ABDOMEN IS ROUND, SOFT, AND NON-TENDER WITH NORMAL BOWEL SOUNDS NOTED IN ALL QUADRANTS. HIS VITALS THIS MORNING ARE 97.6-78-18-95%-105/50. LABS WERE OBTAINED. ABNORMAL LAB VALUES INCLUDE THE FOLLOWING: RBC 3.08, HGB 8.8, HCT 25.9, CHLORIDE 109, BUN 6, CREATININE 0.64, ALBUMIN 2.8. BLOOD CULTURES REPORT GROWTH OF ENTEROCOCCUS FAECALIS. HE IS CURRENTLY RECEIVING CIPRO 400MG IV Q12H. [facility] PLANS TO ADMIT PATIENT TO [facility] DUE TO THE FACT THAT THEY ARE UNABLE TO MEET HIS NEEDS ANYMORE. THIS IS PENDING APPROVAL. WE WILL CONTINUE WITH CURRENT PLAN OF CARE TODAY. WE PLAN TO FOLLOW UP WITH AM LABS AND CONTINUE TO MONITOR. - Past Medical Family Social History Past Med/Fam/Surg Hx: No changes since H&P Allergies: Allergies haloperidol [From Haldol] Allergy (Verified 03/08/17 18:41) - Review of Systems ROS: No change since H&P - Vital Signs and I&O's Vital Signs: Temperature 98 F Pulse Rate [Right Brachial] 80 Pulse Rate [Left] 69 Respiratory Rate 18 Blood Pressure [Right Calf] 181/80 Blood Pressure [Right Arm] 108/44 Blood Pressure [Left Arm] 108/54 Blood Pressure 85/46 O2 Sat by Pulse Oximetry 97 Intake and Output: Intake & Output 02/05/19 02/06/19 02/07/19 02/08/19 11:59 11:59 11:59 11:59 Intake Total 950 / 950 2450 / 2450 2720 / 2720 360 / 360 Balance 950 / 950 2450 / 2450 2720 / 2720 360 / 360 - Physical Exam Oriented: Not Oriented Eyes: Normal Ear: Normal Nose: Normal Throat: Normal Cardiovascular: Normal : Normal Auscultation: Bowel Sounds: Normal Tenderness: Suprapubic, Mild. negative: Rebound, Guarding, Rigidity Skin: Normal Musculoskeletal: Normal Psychiatric: Normal Mood Description: Calm Affect: Normal Speech Pattern: Aphasic - Laboratory and Diagnostics Result Diagrams: 02/07/19 05:45 02/07/19 05:45 Labs: 02/02/19 14:40 Blood Blood Culture - Final Enterococcus Faecalis 02/02/19 14:35 Blood Blood Culture - Final Enterococcus Faecalis Laboratory WBC 4.9 X10^3/uL (3.6-10.0) 02/07/19 05:45 RBC 3.16 X10^6/uL (4.7-6.0) L 02/07/19 05:45 Hgb 9.0 g/dL (13.5-18.0) L 02/07/19 05:45 Hct 26.6 % (42.0-54.0) L 02/07/19 05:45 MCV 84.0 fL (80.0-100.0) 02/07/19 05:45 MCH 28.6 pg (27.0-34.0) 02/07/19 05:45 MCHC 34.1 g/dL (33.0-35.0) 02/07/19 05:45 RDW 16.1 % (11.6-16.5) 02/07/19 05:45 Plt Count 176 X10^3/uL (150.0-450.0) 02/07/19 05:45 MPV 7.7 fL (7.4-11.0) 02/07/19 05:45 Neut % (Auto) 40.8 % (42.0-75.0) L 02/07/19 05:45 Lymph % (Auto) 44.5 % (21.0-51.0) 02/07/19 05:45 [place] % (Auto) 11.0 % (0.0-13.0) 02/07/19 05:45 Eos % (Auto) 3.2 % (0.9-2.9) H 02/07/19 05:45 Baso % (Auto) 0.5 % (0.2-1.0) 02/07/19 05:45 Neut # (Auto) 2.0 x10^3/uL (2.2-4.8) L 02/07/19 05:45 Lymph # (Auto) 2.2 X10^3/uL (1.3-2.9) 02/07/19 05:45 [place] # (Auto) 0.5 x10^3/uL (0.3-0.8) 02/07/19 05:45 Eos # (Auto) 0.2 x10^3/uL (0.0-0.2) 02/07/19 05:45 Baso # (Auto) 0.0 X10^3/uL (0.0-0.1) 02/07/19 05:45 Absolute Nucleated RBC 0.0 /100WBC 02/07/19 05:45 Sodium 142 mmol/L (136-145) 02/07/19 05:45 Corrected Sodium TNP 02/07/19 05:45 Potassium 3.5 mmol/L (3.5-5.1) 02/07/19 05:45 Chloride 108 mmol/L (98-107) H 02/07/19 05:45 Carbon Dioxide 26.3 mmol/L (21-32) 02/07/19 05:45 BUN 5 mg/dL (7-18) L 02/07/19 05:45 Creatinine 0.60 mg/dL (0.70-1.30) L 02/07/19 05:45 Est GFR (MDRD) Af Amer > 60 (>60) 02/07/19 05:45 Est GFR (MDRD) Non-Af > 60 (>60) 02/07/19 05:45 Glucose 79 mg/dL (65-99) 02/07/19 05:45 Calcium 8.9 mg/dL (8.5-10.1) 02/07/19 05:45 Corrected Calcium 9.7 mg/dL (8.5-10.1) 02/07/19 05:45 Total Bilirubin 0.40 mg/dL (0.2-1.0) 02/07/19 05:45 AST 15 Units/L (15-37) 02/07/19 05:45 ALT 19 Units/L (12-78) 02/07/19 05:45 Alkaline Phosphatase 88 Units/L (46-116) 02/07/19 05:45 Total Protein 6.5 g/dL (6.4-8.2) 02/07/19 05:45 Albumin 3.0 g/dL (3.4-5.0) L 02/07/19 05:45 Globulin 3.5 g/dL (2.5-4.5) 02/07/19 05:45 Albumin/Globulin Ratio 0.9 Ratio (1.1-2.1) L 02/07/19 05:45 - Plan (1) UTI (urinary tract infection) Status: Acute Qualifiers: Urinary tract infection type: acute cystitis Hematuria presence: without hematuria Qualified Code(s): N30.00 - Acute cystitis without hematuria Plan: CIPRO 400MG IV Q12H, IV FLUIDS, CONTINUE TO MONITOR (2) Fever Status: Acute Qualifiers: Fever type: unspecified Qualified Code(s): R50.9 - Fever, unspecified Plan: IV ANTIBIOTICS, BLOOD CULTURES, CONTINUE TO MONITOR (3) Mental retardation Status: Chronic (4) Mood disorder Status: Chronic Plan: CONTINUE HOME MEDS, CONTINUE TO MONITOR (5) Seizure disorder Status: Chronic Plan: CONTINUE HOME MEDS, CONTINUE TO MONITOR
[2019-02-07] MEDS: KLONOPIN TAB 1 MG PO SCH (20:52)
[2019-02-07] MEDS: COGENTIN TAB 1 MG PO SCH (20:52)
[2019-02-07] MEDS: ELAVIL PO SCH (20:52)
[2019-02-08 06:23] LABS: EOSINOPHILS # (AUTO) 0.3 x10^3/uL (0.0-0.2); EOSINOPHILS % (AUTO) 6.8 % (0.9-2.9); HEMATOCRIT 28.1 % (42.0-54.0); HEMOGLOBIN 9.5 g/dL (13.5-18.0); LYMPHOCYTES # (AUTO) 1.9 X10^3/uL (1.3-2.9); LYMPHOCYTES % (AUTO) 42.4 % (21.0-51.0); MEAN CORPUSCULAR HEMOGLOBIN 28.6 pg (27.0-34.0); MEAN CORPUSCULAR HGB CONC 33.9 g/dL (33.0-35.0); MEAN CORPUSCULAR VOLUME 84.4 fL (80.0-100.0); MEAN PLATELET VOLUME 7.7 fL (7.4-11.0); MONOCYTES # (AUTO) 0.5 x10^3/uL (0.3-0.8); MONOCYTES % (AUTO) 11.6 % (0.0-13.0); NEUTROPHILS # (AUTO) 1.7 x10^3/uL (2.2-4.8); NEUTROPHILS % (AUTO) 38.2 % (42.0-75.0); PLATELET COUNT 188 X10^3/uL (150.0-450.0); RED BLOOD COUNT 3.33 X10^6/uL (4.7-6.0); WHITE BLOOD COUNT 4.6 X10^3/uL (3.6-10.0)
[2019-02-08 06:33] LABS: ALANINE AMINOTRANSFERASE 20 Units/L (12-78); ALBUMIN 3.1 g/dL (3.4-5.0); ALKALINE PHOSPHATASE 88 Units/L (46-116); ASPARTATE AMINO TRANSFERASE 16 Units/L (15-37); BLOOD UREA NITROGEN 5 mg/dL (7-18); CALCIUM 9.1 mg/dL (8.5-10.1); CARBON DIOXIDE 26.8 mmol/L (21-32); CHLORIDE 109 mmol/L (98-107); COR CA(FOR HYPOALB) 9.8 mg/dL (8.5-10.1); CREATININE 0.62 mg/dL (0.70-1.30); SODIUM 142 mmol/L (136-145); TOTAL PROTEIN 6.7 g/dL (6.4-8.2); eGFR NON BLACK RACES > 60 (>60)
[2019-02-08] MEDS: VITAMIN B-6 PO SCH (08:58)
[2019-02-08] MEDS: ZyrTEC TAB 10 MG PO SCH (08:58)
[2019-02-08] MEDS: ALBUMIN HUMAN 25%- 100 ML 100 ML IV SCH (08:58)
[2019-02-08] MEDS: LEVAQUIN PREMIX IV 750 MG 750 MG/150 ML BAG IV SCH (08:58)
[2019-02-08] MEDS: SENOKOT PO SCH ×2 (08:58→20:25)
[2019-02-08] MEDS: KEPPRA TAB 500 MG PO SCH ×2 (08:58→20:24)
[2019-02-08] MEDS: NS 1000 ML 1,000 ML IV SCH (20:23)
[2019-02-08] MEDS: COGENTIN TAB 1 MG PO SCH (20:24)
[2019-02-08] MEDS: ELAVIL PO SCH (20:24)
[2019-02-08] MEDS: KLONOPIN TAB 1 MG PO SCH (20:24)
--- NOTE | 2019-02-08 20:58 | PCM.PROG ---
Progress Note - Progress Note for Day of Date of Exam: 02/07/19 - Subjective Subjective: IS BEING TREATED FOR SEPSIS, URINARY TRACT INFECTION, FAILED OUTPATIENT TREATMENT, AND FEVER. TODAY, HE IS LYING IN BED WITH EYES CLOSED ON MORNING ROUNDS. HE HAS BEEN AFEBRILE. ON EXAMINATION, HEART IS REGULAR IN RATE AND RHYTHM. BILATERAL LUNGS ARE NOTED WITH DIMINISHED LUNG SOUNDS THROUGHOUT. ABDOMEN IS ROUND, SOFT, AND NON-TENDER WITH NORMAL BOWEL SOUNDS NOTED IN ALL QUADRANTS. HIS VITALS THIS MORNING ARE 98.3-64-18-95%-102/51. LABS WERE OBTAINED. ABNORMAL LAB VALUES INCLUDE THE FOLLOWING: RBC 3.33, HGB 9.5, HCT 28.1, CHLORIDE 109, BUN 5, CREATININE 0.62. BLOOD CULTURES REPORT GROWTH OF ENTEROCOCCUS FAECALIS. HE IS CURRENTLY RECEIVING CIPRO 400MG IV Q12H. HE WILL BE PLACED IN THE [facility] WHEN HE IS READY FOR DISCHARGE. WE WILL CONTINUE WITH CURRENT PLAN OF CARE TODAY. WE PLAN TO FOLLOW UP WITH AM LABS AND CONTINUE TO MONITOR. - Past Medical Family Social History Past Med/Fam/Surg Hx: No changes since H&P Allergies: Allergies haloperidol [From Haldol] Allergy (Verified 03/08/17 18:41) - Review of Systems ROS: No change since H&P - Vital Signs and I&O's Vital Signs: Temperature 99.6 F Pulse Rate [Right Brachial] 76 Pulse Rate [Left] 81 Respiratory Rate 22 Blood Pressure [Right Calf] 181/80 Blood Pressure [Right Arm] 117/55 Blood Pressure [Left Arm] 113/58 Blood Pressure 85/46 O2 Sat by Pulse Oximetry 97 Intake and Output: Intake & Output 02/06/19 02/07/19 02/08/19 02/09/19 11:59 11:59 11:59 11:59 Intake Total 2450 / 2450 2720 / 2720 1400 / 1400 360 / 360 Balance 2450 / 2450 2720 / 2720 1400 / 1400 360 / 360 - Physical Exam Oriented: Not Oriented Eyes: Normal Ear: Normal Nose: Normal Throat: Normal Cardiovascular: Normal : Normal Auscultation: Bowel Sounds: Normal Tenderness: Suprapubic, Mild. negative: Rebound, Guarding, Rigidity Skin: Normal Musculoskeletal: Normal Psychiatric: Normal Mood Description: Calm Affect: Normal Speech Pattern: Aphasic - Laboratory and Diagnostics Result Diagrams: 02/08/19 05:52 02/08/19 05:52 Labs: 02/02/19 14:40 Blood Blood Culture - Final Enterococcus Faecalis 02/02/19 14:35 Blood Blood Culture - Final Enterococcus Faecalis Laboratory WBC 4.6 X10^3/uL (3.6-10.0) 02/08/19 05:52 RBC 3.33 X10^6/uL (4.7-6.0) L 02/08/19 05:52 Hgb 9.5 g/dL (13.5-18.0) L 02/08/19 05:52 Hct 28.1 % (42.0-54.0) L 02/08/19 05:52 MCV 84.4 fL (80.0-100.0) 02/08/19 05:52 MCH 28.6 pg (27.0-34.0) 02/08/19 05:52 MCHC 33.9 g/dL (33.0-35.0) 02/08/19 05:52 RDW 16.0 % (11.6-16.5) 02/08/19 05:52 Plt Count 188 X10^3/uL (150.0-450.0) 02/08/19 05:52 MPV 7.7 fL (7.4-11.0) 02/08/19 05:52 Neut % (Auto) 38.2 % (42.0-75.0) L 02/08/19 05:52 Lymph % (Auto) 42.4 % (21.0-51.0) 02/08/19 05:52 [place] % (Auto) 11.6 % (0.0-13.0) 02/08/19 05:52 Eos % (Auto) 6.8 % (0.9-2.9) H 02/08/19 05:52 Baso % (Auto) 1.0 % (0.2-1.0) 02/08/19 05:52 Neut # (Auto) 1.7 x10^3/uL (2.2-4.8) L 02/08/19 05:52 Lymph # (Auto) 1.9 X10^3/uL (1.3-2.9) 02/08/19 05:52 [place] # (Auto) 0.5 x10^3/uL (0.3-0.8) 02/08/19 05:52 Eos # (Auto) 0.3 x10^3/uL (0.0-0.2) H 02/08/19 05:52 Baso # (Auto) 0.0 X10^3/uL (0.0-0.1) 02/08/19 05:52 Absolute Nucleated RBC 0.0 /100WBC 02/08/19 05:52 Sodium 142 mmol/L (136-145) 02/08/19 05:52 Corrected Sodium TNP 02/08/19 05:52 Potassium 3.6 mmol/L (3.5-5.1) 02/08/19 05:52 Chloride 109 mmol/L (98-107) H 02/08/19 05:52 Carbon Dioxide 26.8 mmol/L (21-32) 02/08/19 05:52 BUN 5 mg/dL (7-18) L 02/08/19 05:52 Creatinine 0.62 mg/dL (0.70-1.30) L 02/08/19 05:52 Est GFR (MDRD) Af Amer > 60 (>60) 02/08/19 05:52 Est GFR (MDRD) Non-Af > 60 (>60) 02/08/19 05:52 Glucose 76 mg/dL (65-99) 02/08/19 05:52 Calcium 9.1 mg/dL (8.5-10.1) 02/08/19 05:52 Corrected Calcium 9.8 mg/dL (8.5-10.1) 02/08/19 05:52 Total Bilirubin 0.40 mg/dL (0.2-1.0) 02/08/19 05:52 AST 16 Units/L (15-37) 02/08/19 05:52 ALT 20 Units/L (12-78) 02/08/19 05:52 Alkaline Phosphatase 88 Units/L (46-116) 02/08/19 05:52 Total Protein 6.7 g/dL (6.4-8.2) 02/08/19 05:52 Albumin 3.1 g/dL (3.4-5.0) L 02/08/19 05:52 Globulin 3.6 g/dL (2.5-4.5) 02/08/19 05:52 Albumin/Globulin Ratio 0.9 Ratio (1.1-2.1) L 02/08/19 05:52 - Plan (1) UTI (urinary tract infection) Status: Acute Qualifiers: Urinary tract infection type: acute cystitis Hematuria presence: without hematuria Qualified Code(s): N30.00 - Acute cystitis without hematuria Plan: CIPRO 400MG IV Q12H, IV FLUIDS, CONTINUE TO MONITOR (2) Fever Status: Acute Qualifiers: Fever type: unspecified Qualified Code(s): R50.9 - Fever, unspecified Plan: IV ANTIBIOTICS, BLOOD CULTURES, CONTINUE TO MONITOR (3) Mental retardation Status: Chronic (4) Mood disorder Status: Chronic Plan: CONTINUE HOME MEDS, CONTINUE TO MONITOR (5) Seizure disorder Status: Chronic Plan: CONTINUE HOME MEDS, CONTINUE TO MONITOR
[2019-02-09 06:19] LABS: BASOPHILS % (AUTO) 0.8 % (0.2-1.0); EOSINOPHILS # (AUTO) 0.2 x10^3/uL (0.0-0.2); EOSINOPHILS % (AUTO) 5.6 % (0.9-2.9); HEMOGLOBIN 9.2 g/dL (13.5-18.0); LYMPHOCYTES # (AUTO) 2.3 X10^3/uL (1.3-2.9); LYMPHOCYTES % (AUTO) 52.3 % (21.0-51.0); MEAN CORPUSCULAR HEMOGLOBIN 29.2 pg (27.0-34.0); MEAN CORPUSCULAR VOLUME 85.8 fL (80.0-100.0); MONOCYTES # (AUTO) 0.5 x10^3/uL (0.3-0.8); MONOCYTES % (AUTO) 10.5 % (0.0-13.0); NEUTROPHILS # (AUTO) 1.4 x10^3/uL (2.2-4.8); NEUTROPHILS % (AUTO) 30.8 % (42.0-75.0); PLATELET COUNT 186 X10^3/uL (150.0-450.0); RED BLOOD COUNT 3.15 X10^6/uL (4.7-6.0); RED CELL DISTRIBUTION WIDTH 16.7 % (11.6-16.5); WHITE BLOOD COUNT 4.4 X10^3/uL (3.6-10.0)
[2019-02-09 06:33] LABS: ALANINE AMINOTRANSFERASE 20 Units/L (12-78); ALKALINE PHOSPHATASE 78 Units/L (46-116); ASPARTATE AMINO TRANSFERASE 14 Units/L (15-37); BLOOD UREA NITROGEN 5 mg/dL (7-18); CALCIUM 8.7 mg/dL (8.5-10.1); CARBON DIOXIDE 26.7 mmol/L (21-32); CHLORIDE 110 mmol/L (98-107); COR CA(FOR HYPOALB) 9.5 mg/dL (8.5-10.1); CREATININE 0.57 mg/dL (0.70-1.30); SODIUM 144 mmol/L (136-145); TOTAL PROTEIN 6.4 g/dL (6.4-8.2); eGFR NON BLACK RACES > 60 (>60)
[2019-02-09] MEDS: NS 1000 ML 1,000 ML IV SCH ×2 (07:04→07:05)
[2019-02-09] MEDS: ZyrTEC TAB 10 MG PO SCH (08:57)
[2019-02-09] MEDS: SENOKOT PO SCH (08:57)
[2019-02-09] MEDS: VITAMIN B-6 PO SCH (08:57)
[2019-02-09] MEDS: KEPPRA TAB 500 MG PO SCH (08:57)
[2019-02-09] MEDS: ALBUMIN HUMAN 25%- 100 ML 100 ML IV SCH (08:58)
[2019-02-09] MEDS: LEVAQUIN PREMIX IV 750 MG 750 MG/150 ML BAG IV SCH (08:59)
[2019-02-09 11:04] LABS: BILIRUBIN,URINE NEGATIVE (NEGATIVE); BLOOD/HEMOGLOBIN,URINE 5+ (NEGATIVE); GLUCOSE, URINE NEGATIVE (NEGATIVE); KETONES,URINE NEGATIVE (NEGATIVE); LEUKOCYTE ESTERASE ,URINE NEGATIVE (NEGATIVE); NITRITES,URINE NEGATIVE (NEGATIVE); PROTEIN,URINE 1+ (NEGATIVE); UROBILINOGEN,URINE NORMAL (NORMAL)
[2019-02-09 11:12] LABS: APPEARANCE,URINE SLIGHTLY HAZY (CLEAR); BACTERIA,URINE TRACE /HPF (NEGATIVE); COLOR,URINE YELLOW (YELLOW); MUCUS,URINE FEW /HPF (NEGATIVE); RBC,URINE TNTC /HPF (NONE SEEN); SQUAMOUS EPITHELIAL CELL,UR FEW /HPF (NEGATIVE)
[2019-02-09 13:08] VITALS: BP 108/53
== END 2019-02-09 16:17 | DRG 689 ==
LOC: MED/SURG → OBSVTOIN 14:00
PROVIDERS: ADMIT Internal Medicine; ATTEND Internal Medicine
DX: Z51.5 Encounter for palliative care; R50.9 Fever, unspecified; F78 Other intellectual disabilities; G40.89 Other seizures; N30.00 Acute cystitis without hematuria; F39 Unspecified mood [affective] disorder; F41.8 Other specified anxiety disorders; A41.81 Sepsis due to Enterococcus
CPT/HCPCS: 36415; 80053; 81001; 85025; 87040; 87077; 87186; A4222; P9047; G0378; J0696; J0744; J1956; J7030